=== PATIENT | female | born 1940 | race Caucasian/White ===

== ENCOUNTER → 2020-07-13 13:58 | Outpatient (BNVA) | payer MEDICARE, OTHER, SELFPAY | PROVIDERS: PCP Internal Medicine; Visit Provider Anesthesiology | DX: M47.817 Spondylosis without myelopathy or radiculopathy, lumbosacral region (principal); M51.36 Other intervertebral disc degeneration, lumbar region; M47.812 Spondylosis without myelopathy or radiculopathy, cervical region; G89.4 Chronic pain syndrome; M47.814 Spondylosis without myelopathy or radiculopathy, thoracic region; M48.10 Ankylosing hyperostosis [Forestier], site unspecified | CPT/HCPCS: 99202 ==

== ENCOUNTER → 2020-08-10 15:41 | Outpatient (BNVA) | payer MEDICARE, OTHER, SELFPAY | PROVIDERS: PCP Internal Medicine; Visit Provider Anesthesiology | DX: M47.817 Spondylosis without myelopathy or radiculopathy, lumbosacral region (principal); M51.36 Other intervertebral disc degeneration, lumbar region | CPT/HCPCS: 99212 ==

== ENCOUNTER → 2020-08-26 09:17 | Outpatient (BNVA) | payer MEDICARE, OTHER, SELFPAY | PROVIDERS: PCP Internal Medicine; Visit Provider Anesthesiology | DX: M47.817 Spondylosis without myelopathy or radiculopathy, lumbosacral region (principal); M51.36 Other intervertebral disc degeneration, lumbar region; G89.4 Chronic pain syndrome; M47.812 Spondylosis without myelopathy or radiculopathy, cervical region; M47.814 Spondylosis without myelopathy or radiculopathy, thoracic region; M48.10 Ankylosing hyperostosis [Forestier], site unspecified | CPT/HCPCS: 99212 ==

== ENCOUNTER → 2020-09-24 09:40 | Outpatient (BNVA) | payer MEDICARE, OTHER, SELFPAY | PROVIDERS: PCP Internal Medicine; Visit Provider Anesthesiology | DX: M47.817 Spondylosis without myelopathy or radiculopathy, lumbosacral region (principal); M51.36 Other intervertebral disc degeneration, lumbar region; G89.4 Chronic pain syndrome; M47.812 Spondylosis without myelopathy or radiculopathy, cervical region; M47.814 Spondylosis without myelopathy or radiculopathy, thoracic region; M48.10 Ankylosing hyperostosis [Forestier], site unspecified | CPT/HCPCS: 99212 ==

== ENCOUNTER → 2020-10-07 10:09 | Outpatient (BNVA) | payer MEDICARE, OTHER, SELFPAY | PROVIDERS: PCP Internal Medicine; Visit Provider Anesthesiology | DX: M47.817 Spondylosis without myelopathy or radiculopathy, lumbosacral region (principal); M51.36 Other intervertebral disc degeneration, lumbar region; M47.812 Spondylosis without myelopathy or radiculopathy, cervical region; M47.814 Spondylosis without myelopathy or radiculopathy, thoracic region; G89.4 Chronic pain syndrome; M48.10 Ankylosing hyperostosis [Forestier], site unspecified | CPT/HCPCS: 99212 ==

== ENCOUNTER → 2020-11-05 10:18 | Outpatient (BNVA) | payer MEDICARE, OTHER, SELFPAY | PROVIDERS: PCP Internal Medicine; Visit Provider Anesthesiology | DX: M47.817 Spondylosis without myelopathy or radiculopathy, lumbosacral region (principal); M51.36 Other intervertebral disc degeneration, lumbar region; G89.4 Chronic pain syndrome; M47.812 Spondylosis without myelopathy or radiculopathy, cervical region; M47.814 Spondylosis without myelopathy or radiculopathy, thoracic region; M48.10 Ankylosing hyperostosis [Forestier], site unspecified | CPT/HCPCS: 99212 ==

== ENCOUNTER → 2020-11-24 08:00 | Outpatient (BNVA) | payer MEDICARE, OTHER, SELFPAY | PROVIDERS: PCP Internal Medicine; Visit Provider Family Medicine Adult Medicine | DX: M47.817 Spondylosis without myelopathy or radiculopathy, lumbosacral region (principal); M51.36 Other intervertebral disc degeneration, lumbar region; M47.812 Spondylosis without myelopathy or radiculopathy, cervical region; M47.814 Spondylosis without myelopathy or radiculopathy, thoracic region | CPT/HCPCS: 99212 ==

== ENCOUNTER → 2020-12-22 08:50 | Outpatient (BNVA) | payer MEDICARE, OTHER, SELFPAY | PROVIDERS: PCP Internal Medicine; Visit Provider Family Medicine Adult Medicine | DX: M51.36 Other intervertebral disc degeneration, lumbar region (principal); M47.817 Spondylosis without myelopathy or radiculopathy, lumbosacral region; M47.812 Spondylosis without myelopathy or radiculopathy, cervical region; M47.814 Spondylosis without myelopathy or radiculopathy, thoracic region; Z79.899 Other long term (current) drug therapy | CPT/HCPCS: 99212 ==

== ENCOUNTER 2020-12-22 10:12 | Emergency (ER) | payer MEDICARE, OTHER, SELFPAY ==
[2020-12-22] VITALS (9 sets, daily range): BP systolic 179–211; BP diastolic 62–80; PULSE 55–66; RESP 17–18; TEMP 36.7; O2SAT 96–99; BMI 27.8
--- NOTE | 2020-12-22 10:28 | ED.CHESTPAIN ---
HPI - Chest Pain General Chief Complaint: Chest Pain Stated Complaint: chest pain, htn Time Seen by Provider: 12/22/20 10:28 Source: patient Mode of arrival: ambulatory Limitations: no limitations History of Present Illness HPI narrative: Saw her pain management doctor and had a BP of 235/99. Over the last few days she has been weak, tired with a headache. Patient has had this happen in the past. Patient missed some of her blood pressure medication yesterday. This morning she had all her morning BP medication. Patient takes losartanl and labetolol in the afternoon. Patient had 30 minutes of chest pain after the doctor called the ambulance to take the patient to the ED. MD complaint: chest pain Onset (ago): minute(s) Prior episodes: Yes Onset: other (with anxiety) Pain location: substernal Quality: tightness Exacerbating factors: stress Related Data Home Medications Medication Instructions Recorded Confirmed allopurinol 100 mg tablet 200 mg PO DAILY 07/13/20 12/22/20 atorvastatin 40 mg tablet 40 mg PO DAILY 07/13/20 12/22/20 furosemide 20 mg tablet 20 mg PO DAILY 07/13/20 12/22/20 labetalol 100 mg tablet mg PO 07/13/20 12/22/20 losartan 100 mg tablet 100 mg PO DAILY 07/13/20 12/22/20 meclizine 25 mg tablet 25 mg PO BID 07/13/20 12/22/20 nifedipine 30 mg tablet,extended 30 mg PO DAILY 07/13/20 12/22/20 release 24 hr topiramate 25 mg tablet 25 mg PO TID 07/13/20 12/22/20 Previous Rx's Medication Instructions Recorded buprenorphine 15 mcg/hour weekly 1 patch TRANSDERMAL Q7D 28 Days #4 12/22/20 transdermal patch ea hydrocodone 5 mg-acetaminophen 325 1 tab PO BEDTIME PRN 30 Days #20 12/22/20 mg tablet tab Allergies Allergy/AdvReac Type Severity Reaction Status Date / Time capsaicin [From DICLOPAK] Allergy Unknown RASH Verified 12/22/20 09:55 diclofenac [From DICLOPAK] Allergy Unknown RASH Verified 12/22/20 09:55 tolmetin [From Tolectin] Allergy swelling,ra Verified 12/22/20 09:55 Review of Systems Constitutional: Constitutional: Reports no additional constitutional complaints Eyes: Eyes: Reports no additional eye complaints ENT: Denies dizziness Cardiovascular: Cardiovascular: Reports no additional cardiovascular complaints Respiratory: Respiratory: Reports as per HPI Gastrointestinal: Gastrointestinal: Reports no additional gastrointestinal complaints Genitourinary: Genitourinary: Reports no additional female genitourinary complaints Musculoskeletal: Musculoskeletal: Reports no additional musculoskeletal complaints Integumentary/Breasts: Skin/Breast: Denies rash Neurologic: Reports system reviewed and no additional complaints, except as documented, Denies dizziness and Denies Sensory deficit (Neuro) Psychiatric: Psychiatric: Denies anxiety [facility] Past Medical History Medical History Cervical spondylosis Chronic pain syndrome Disc degeneration, lumbar DISH (diffuse idiopathic skeletal hyperostosis) Spondylosis of lumbosacral joint without myelopathy Thoracic spondylosis Social History Social History Alcohol intake: never Patient Tobacco Use Status: Never used Tobacco Use of substances other than those prescribed or required for medical reasons: No Advance Directives: No Advance Directives Information Provided: No Physical Exam Vital Signs: Vital Signs: Last Vital Signs Temp 98.1 F 12/22/20 10:20 Pulse 60 12/22/20 13:19 Resp 18 12/22/20 13:19 BP 196/73 H 12/22/20 13:19 Pulse Ox 99 12/22/20 13:19 Body Mass Index 27.8 Const: General: healthy appearing Nutritional Appearance: average body habitus Orientation/consciousness: oriented to person and patient oriented x3 Limitations: no limitations HENMT: Head: Yes normal to inspection Ears: external ears normal General nose exam: Normal external nose present Mouth: Normal oral and palatal mucosa present and oropharynx normal Throat: Yes posterior oropharynx normal Eyes: General: appearance normal, both eyes and all related structures Neck: Other: supple Neck: Yes normal visual inspection Chest: Chest palpation & inspection: normal inspection of the chest Resp: Auscultation: clear to auscultation bilaterally Cardio: Jugular venous distension: no JVD Rate: regular rate Rhythm: regular rhythm Heart sounds: S1 normal heart sound present and S2 normal heart sound present GI: Inspection: Yes normal to inspection Palpation (GI): Soft to palpation, nontender and No hepatosplenomegaly present Auscultation: normal bowel sounds : General: Yes no CVA tenderness Back/Spine/Pelvis: Back: no CVA tenderness Skin: General skin exam: no rashes or lesions noted Neuro: General: oriented to person and patient oriented x3 Cranial nerves: Yes CN's II-XII intact bilaterally Motor exam (neuro): 5/5 motor strength present throughout Sensory Exam: No Sensory deficit (Neuro) Extrem: General: Yes normal to inspection Psych: Appearance: grossly normal Course Reevaluation(s) Reevaluation #1: Labs look good, systolic now 190, will give patient 10mg of IV labetalol if BP comes down a little more will dc home Time: 12:48 Reevaluation #2: 179/62 will dc home Time: 14:04 MDM - Chest Pain Lab Data Result diagrams: 12/22/20 10:41 12/22/20 10:41 Labs: Lab Results 12/22/20 12/22/20 12/22/20 Range/Units 10:41 10:41 10:41 WBC 6.9 (4.8-10.8) X10*3/uL RBC 4.11 L (4.20-5.50) X10*6/uL Hgb 12.4 (12.0-16.0) g/dl Hct 37.7 (37-47) % MCV 91.7 (80-98) fL MCH 30.2 (27.0-33.0) pg MCHC 32.9 (31.0-35.0) g/dl RDW 12.4 (11.0-16.0) % Plt Count 216 (160-400) X10*3/uL MPV 10.2 (9.4-12.3) fL Immature Gran % (Auto) 0.1 (0.0-0.4) % Neut % (Auto) 60.5 (45-73) % Lymph % (Auto) 28.8 (20-40) % [place] % (Auto) 8.8 (2-11) % Eos % (Auto) 1.4 (0-4) % Baso % (Auto) 0.4 (0-2) % Lymph # (Auto) 2.0 (1.2-4.9) X10*3/uL [place] # (Auto) 0.6 (0.1-1.2) X10*3/uL Eos # (Auto) 0.1 (0.0-0.4) X10*3/uL Baso # (Auto) 0.0 (0.0-0.2) X10*3/uL Abs Immat Gran (auto) 0.01 (0.00-0.03) X10*3/uL Absolute Neuts (auto) 4.2 (2.0-8.3) X10*3/uL Absolute Nucleated RBC 0.000 (0.0-0.012) X10*3/uL Nucleated RBC % (auto) 0.0 (0.0-0.2) /100WBC Sodium 142 (135-145) mmol/L Potassium 3.8 (3.3-5.1) mmol/L Chloride 109 H (96-108) mmol/L Carbon Dioxide 21 L (22-29) mmol/L Anion Gap 16 (12-20) BUN 19 H (9-16) mg/dL Creatinine 0.91 (0.5-1.4) mg/dL Estim Creat Clear Calc 43.8 Estimated GFR 60 Random Glucose 151 H (60-115) mg/dL Calcium 9.0 (8.4-10.2) mg/dL Troponin I High Sens 7.6 (<3.5-17.0) ng/L Urine Color Urine Appearance Urine pH (5.0-8.0) Ur Specific [place] (1.005-1.025) Urine Protein (NEG-TRACE) MG/DL Urine Glucose (UA) (NEG) MG/DL Urine Ketones (NEG) MG/DL Urine Blood (NEG) Urine Nitrite (NEG) Ur Leukocyte Esterase (NEG) Urine RBC (0) /HPF Urine WBC (0-4) /HPF Ur Squamous Epith Cells /LPF Urine Bacteria /LPF 12/22/20 Range/Units 11:55 WBC (4.8-10.8) X10*3/uL RBC (4.20-5.50) X10*6/uL Hgb (12.0-16.0) g/dl Hct (37-47) % MCV (80-98) fL MCH (27.0-33.0) pg MCHC (31.0-35.0) g/dl RDW (11.0-16.0) % Plt Count (160-400) X10*3/uL MPV (9.4-12.3) fL Immature Gran % (Auto) (0.0-0.4) % Neut % (Auto) (45-73) % Lymph % (Auto) (20-40) % [place] % (Auto) (2-11) % Eos % (Auto) (0-4) % Baso % (Auto) (0-2) % Lymph # (Auto) (1.2-4.9) X10*3/uL [place] # (Auto) (0.1-1.2) X10*3/uL Eos # (Auto) (0.0-0.4) X10*3/uL Baso # (Auto) (0.0-0.2) X10*3/uL Abs Immat Gran (auto) (0.00-0.03) X10*3/uL Absolute Neuts (auto) (2.0-8.3) X10*3/uL Absolute Nucleated RBC (0.0-0.012) X10*3/uL Nucleated RBC % (auto) (0.0-0.2) /100WBC Sodium (135-145) mmol/L Potassium (3.3-5.1) mmol/L Chloride (96-108) mmol/L Carbon Dioxide (22-29) mmol/L Anion Gap (12-20) BUN (9-16) mg/dL Creatinine (0.5-1.4) mg/dL Estim Creat Clear Calc Estimated GFR Random Glucose (60-115) mg/dL Calcium (8.4-10.2) mg/dL Troponin I High Sens (<3.5-17.0) ng/L Urine Color YELLOW Urine Appearance CLEAR Urine pH 6.0 (5.0-8.0) Ur Specific [place] 1.025 (1.005-1.025) Urine Protein 2+ H (NEG-TRACE) MG/DL Urine Glucose (UA) NEG (NEG) MG/DL Urine Ketones NEG (NEG) MG/DL Urine Blood NEG (NEG) Urine Nitrite NEG (NEG) Ur Leukocyte Esterase NEG (NEG) Urine RBC 0-2 (0) /HPF Urine WBC 1-4 (0-4) /HPF Ur Squamous Epith Cells 1+ /LPF Urine Bacteria NONE /LPF Discharge Plan Discharge Clinical Impression: Hypertension Qualifiers: Hypertension type: primary hypertension Qualified Code(s): I10 - Essential (primary) hypertension Patient Disposition: Home, Self-Care Instructions: Hypertension (ED) Prescriptions: No Action atorvastatin 40 mg tablet 40 mg PO DAILY RF: 0 allopurinol 100 mg tablet 200 mg PO DAILY RF: 0 losartan 100 mg tablet 100 mg PO DAILY RF: 0 nifedipine 30 mg tablet extended release 24hr 30 mg PO DAILY RF: 0 furosemide 20 mg tablet 20 mg PO DAILY RF: 0 labetalol 100 mg tablet PO RF: 0 topiramate 25 mg tablet 25 mg PO TID RF: 0 meclizine 25 mg tablet 25 mg PO BID RF: 0 buprenorphine [Butrans] 15 mcg/hour patch weekly 1 patch transdermal Q7D 28 Days Qty: 4 RF: 1 hydrocodone-acetaminophen 5-325 mg tablet 1 tab PO BEDTIME PRN (Reason: pain) 30 Days Qty: 20 RF: 0 Referrals: Beau Perez MD [Primary Care Provider] - 2 days
--- NOTE | 2020-12-22 10:37 | ECG_ITS ---
Test Reason : CP Blood Pressure : / mmHG Vent. Rate : 062 BPM Atrial Rate : 062 BPM P-R Int : 150 ms QRS Dur : 164 ms QT Int : 474 ms P-R-T Axes : - 147 degrees QTc Int : 481 ms Normal sinus rhythm Left bundle branch block Abnormal ECG When compared with ECG of 02-MAR-2011 10:01, No significant change was found Referred By: Kendrick Negrete Electronically Signed By:WALKER COREAS MD
[2020-12-22 10:48] LABS: MANUAL DIFF FLAG NO
[2020-12-22 10:51] LABS: Basophils Percent Auto 0.4 % (0-2); Eosinophils Absolute Auto 0.1 X10*3/uL (0.0-0.4); Eosinophils Percent Auto 1.4 % (0-4); Hematocrit 37.7 % (37-47); Hemoglobin 12.4 g/dl (12.0-16.0); Imm Gran Abs Auto 0.01 X10*3/uL (0.00-0.03); Imm Gran Pct Auto 0.1 % (0.0-0.4); Lymphocytes Percent Auto 28.8 % (20-40); Mean Corpuscular HGB Conc 32.9 g/dl (31.0-35.0); Mean Corpuscular Hemoglobin 30.2 pg (27.0-33.0); Mean Corpuscular Volume 91.7 fL (80-98); Mean Platelet Volume 10.2 fL (9.4-12.3); Monocytes Absolute Auto 0.6 X10*3/uL (0.1-1.2); Monocytes Percent Auto 8.8 % (2-11); Neutrophils Absolute Auto 4.2 X10*3/uL (2.0-8.3); Neutrophils Percent Auto 60.5 % (45-73); Platelet Count 216 X10*3/uL (160-400); Red Blood Count 4.11 X10*6/uL (4.20-5.50); Red Cell Distribution Width 12.4 % (11.0-16.0); White Blood Count 6.9 X10*3/uL (4.8-10.8)
[2020-12-22] MEDS: Labetalol HCL 100 MG TABLET PO (11:07)
[2020-12-22] MEDS: Losartan Potassium 50 MG TABLET 100 MG PO (11:07)
[2020-12-22 11:09] LABS: Anion Gap 16 (12-20); Blood Urea Nitrogen 19 mg/dL (9-16); Carbon Dioxide 21 mmol/L (22-29); Chloride 109 mmol/L (96-108); Creatinine Clr Calc Pharmacy 43.8; Estimated Glomerular Filt Rate 60; Glucose Random 151 mg/dL (60-115); Potassium 3.8 mmol/L (3.3-5.1); Sodium 142 mmol/L (135-145)
[2020-12-22 11:16] LABS: Troponin-I High Sensitivity 7.6 ng/L (<3.5-17.0)
--- NOTE | 2020-12-22 11:53 | PC.NURSE ---
Patient is ambulatory to the bathroom and back without difficulty. Pt denies any chest pain or shortness of breath. Pt given a sandwich and gingerale after doctor approval.
[2020-12-22 12:03] LABS: Appearance Urine CLEAR; Color Urine YELLOW; Glucose Urine UA NEG (NEG); Leukocyte Esterase Urine NEG (NEG); Nitrite Urine NEG (NEG); Specific Gravity - Urine 1.025 (1.005-1.025); Urine Blood NEG (NEG); Urine Ketones NEG (NEG); Urine Protein 2+ MG/DL (NEG-TRACE)
[2020-12-22 12:16] LABS: RBC Urine 0-2 /HPF (0); Squamous Epithelial Cell Urine 1+ /LPF
[2020-12-22] MEDS: Labetalol HCL 100 MG/20 ML VIAL 10 MG IVPUSH (13:15)
== END 2020-12-22 14:27 | disposition home or self-care (01) ==
PROVIDERS: Emergency Provider Emergency Medicine; PCP Internal Medicine
DX: I10 Essential (primary) hypertension (principal); Z79.899 Other long term (current) drug therapy
CPT/HCPCS: 36415; 80048; 81001; 81003; 84484; 85025; 93005; 96374; 99284; 99285

== ENCOUNTER → 2021-01-26 09:24 | Outpatient (BNVA) | payer MEDICARE, OTHER, SELFPAY | PROVIDERS: PCP Internal Medicine; Visit Provider Family Medicine Adult Medicine | DX: M47.817 Spondylosis without myelopathy or radiculopathy, lumbosacral region (principal); M47.812 Spondylosis without myelopathy or radiculopathy, cervical region; M47.814 Spondylosis without myelopathy or radiculopathy, thoracic region; M51.36 Other intervertebral disc degeneration, lumbar region | CPT/HCPCS: 99212 ==

== ENCOUNTER → 2021-02-23 10:02 | Outpatient (BNVA) | payer MEDICARE, OTHER, SELFPAY | PROVIDERS: PCP Internal Medicine; Visit Provider Family Medicine Adult Medicine | DX: Z51.81 Encounter for therapeutic drug level monitoring (principal); M47.817 Spondylosis without myelopathy or radiculopathy, lumbosacral region; M47.812 Spondylosis without myelopathy or radiculopathy, cervical region; M51.36 Other intervertebral disc degeneration, lumbar region | CPT/HCPCS: 99212 ==

== ENCOUNTER → 2021-03-23 09:52 | Outpatient (BNVA) | payer MEDICARE, OTHER, SELFPAY | PROVIDERS: PCP Internal Medicine; Visit Provider Family Medicine Adult Medicine | DX: Z51.81 Encounter for therapeutic drug level monitoring (principal); M47.812 Spondylosis without myelopathy or radiculopathy, cervical region; M51.36 Other intervertebral disc degeneration, lumbar region; M47.817 Spondylosis without myelopathy or radiculopathy, lumbosacral region; M47.814 Spondylosis without myelopathy or radiculopathy, thoracic region | CPT/HCPCS: 99212 ==

== ENCOUNTER → 2021-04-20 09:56 | Outpatient (BNVA) | payer MEDICARE, OTHER, SELFPAY | PROVIDERS: PCP Internal Medicine; Visit Provider Family Medicine Adult Medicine | DX: Z51.81 Encounter for therapeutic drug level monitoring (principal); M47.817 Spondylosis without myelopathy or radiculopathy, lumbosacral region; G89.4 Chronic pain syndrome | CPT/HCPCS: 99212 ==

== ENCOUNTER → 2021-05-18 13:07 | Outpatient (BNVA) | payer MEDICARE, OTHER, SELFPAY | PROVIDERS: PCP Internal Medicine; Visit Provider Family Medicine Adult Medicine ==

== ENCOUNTER 2021-09-29 14:25 | Outpatient (REF) | payer MEDICARE, OTHER, SELFPAY ==
[2021-09-29 18:13] LABS: Hematocrit 38.6 % (37.0-47.0); Hemoglobin 12.8 g/dl (12.0-16.0); Mean Corpuscular HGB Conc 33.2 g/dl (31.0-35.0); Mean Corpuscular Hemoglobin 30.5 pg (27.0-33.0); Mean Corpuscular Volume 92.1 fL (80.0-98.0); Platelet Count 242 X10*3/uL (160-400); Red Blood Count 4.19 X10*6/uL (4.20-5.50); Red Cell Distribution Width 11.9 % (11.0-16.0); White Blood Count 7.7 X10*3/uL (4.8-10.8)
[2021-09-29 18:21] LABS: Alanine Aminotransferase < 6 U/L (0-31); Albumin Level 4.1 g/dL (3.5-5.0); Alkaline Phosphatase 72 U/L (39-117); Anion Gap 14 (12-20); Aspartate Amino Transferase 15 U/L (5-31); Bilirubin Total 0.4 mg/dL (0.0-1.0); Blood Urea Nitrogen 35 mg/dL (9-16); Calcium 9.4 mg/dL (8.4-10.2); Carbon Dioxide 27 mmol/L (22-29); Chloride 101 mmol/L (96-108); Estimated Glomerular Filt Rate 37; Glucose Random 174 mg/dL (60-115); Potassium 4.1 mmol/L (3.3-5.1); Sodium 138 mmol/L (135-145); Total Protein 6.5 g/dL (6.5-8.0)
[2021-09-30 05:41] LABS: Estimated Average Glucose 131 mg/dL; Hemoglobin A1C 150.6729 umol/L; Hemoglobin A1c % 6.2 %
== END 2021-09-29 14:26 | disposition home or self-care (01) ==
LOC: HO.MANLDS 14:25
PROVIDERS: PCP Internal Medicine; Visit Provider Internal Medicine
DX: E11.9 Type 2 diabetes mellitus without complications (principal)
CPT/HCPCS: 36415; 80053; 83036; 85027

== ENCOUNTER 2022-03-07 11:02 | Emergency (ER) | payer MEDICARE, OTHER, SELFPAY ==
[2022-03-07 11:05] VITALS: BP 209/66; PULSE 61; RESP 18; TEMP 36.3; O2SAT 99; BMI 25.9
== END 2022-03-07 16:41 | disposition left against medical advice (07) ==
PROVIDERS: Emergency Provider Emergency Medicine; PCP Internal Medicine
DX: R51.9 Headache, unspecified (principal); R11.0 Nausea; R19.7 Diarrhea, unspecified
CPT/HCPCS: 99281

== ENCOUNTER 2022-03-25 11:24 | Emergency (ER) | payer MEDICARE, OTHER, SELFPAY ==
--- NOTE | ~2022-03-25 | CT_ITS ---
CT ANGIOGRAM NECK WITH CONTRAST CT ANGIOGRAM BRAIN WITH CONTRAST CLINICAL INFORMATION: Pain and headache. COMPARISON: Head CT 03/02/2011. TECHNIQUE: Test bolus sequences followed by intravenous administration 70 mL of Omnipaque 350. Helical imaging was performed in the axial plane from the thoracic inlet to the skull vertex. Delayed postcontrast imaging of the head was also performed. The data was processed at the radiologic technologist workstation for generation of MIP sequences. Angled MIPs and volume rendered reformatted images were also generated at an offline 3D workstation under concurrent supervision. Stenoses are assessed in accordance with NASCET criteria unless otherwise indicated. This CT examination was performed using dose optimization techniques as appropriate, variously including the following: *Automated exposure control *Adjustment of mA and/or kV according to patient size (this includes techniques or standardized protocols for targeted exams where dose is matched to indication/reason for exam; i.e. extremities or head) *Use of iterative reconstruction technique FINDINGS: BRAIN: Moderate chronic microangiopathy. [There is no intracranial hemorrhage, hydrocephalus, extra-axial surface collection, midline shift, or other herniation pattern. Brownlee to white matter differentiation is diffusely maintained without evidence of an evolved acute territorial infarct. The basilar cisterns are preserved. No significant soft tissue abnormality. No acute osseous abnormality. The paranasal sinuses and the mastoid air cells are well aerated.] CERVICAL SOFT TISSUES AND LUNG APICES: There is multilevel cervical spondylosis. NECK CTA: [There is a classic 3 vessel configuration of the aortic arch. Proximal arch vessels are non-stenotic. The vertebral arteries are codominant. No significant ostial stenosis is visualized on either side. Both vertebral arteries are widely patent throughout their cervical course. Both common carotid arteries are normal in course and caliber.] Atherosclerotic calcification involving the carotid bifurcations bilaterally without significant stenosis. BRAIN CTA: Atherosclerotic calcification results in a moderate stenosis of the left vertebral artery at its dural insertion. 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 No focal flow-limiting stenosis nor discrete proximal large artery occlusion. 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 Timing of the contrast bolus allows assessment of the major dural venous sinuses, which all opacify normally] CT/CT angio head neck IMPRESSION: - No acute intracranial findings. There is moderate chronic microangiopathy. 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 - Atherosclerotic calcification results in a moderate stenosis of the left vertebral artery at its dural insertion. No additional significant arterial stenoses within the neck. - No acute arterial occlusions intracranially.
--- NOTE | 2022-03-25 11:32 | ED_ITS ---
HPI - Neck Pain/Injury General Chief Complaint: Neck Pain/Injury Stated Complaint: neck pain Time Seen by Provider: 03/25/22 11:26 Source: patient, EMS and old records reviewed Mode of arrival: EMS Limitations: no limitations History of Present Illness HPI Narrative: 82 yo female with history of chronic pain syndrome on chronic buprenorphine patch, cervical & thoracic spondylosis, diffuse idiopathic skeletal hype rostosis, HTN who presents to the ER for evaluation of severe neck pain that is worsening then she ?slept wrong? 3 days ago. She states she went to bed with a stiff neck and woke up with worsening symptoms on Monday, 03/22. She feels like all the muscles in her neck are stiff, on both sides. She also reports severe midline pain posteriorly. She is unable to move her head at all with excruciating tearing in with movement. She states she also now has a headache. She denies any trauma or injuries. She feels ?frozen. ? complaint: neck pain Onset (ago): day(s) (4) Place: home Radiation: right lateral and left lateral Severity: severe Severity scale (1-10): 10 Quality: stabbing, aching and spasming Duration: constant Relieving factors: immobilization Exacerbating factors: movement of neck Context: unknown Associated symptoms: headache Treatments prior to arrival: prescription analgesic Related Data Home Medications Medication Instructions Recorded Confirmed allopurinol 100 mg tablet 200 mg PO DAILY 07/13/20 04/20/21 atorvastatin 40 mg tablet 40 mg PO DAILY 07/13/20 04/20/21 furosemide 20 mg tablet 20 mg PO DAILY 07/13/20 04/20/21 labetalol 100 mg tablet mg PO 07/13/20 04/20/21 losartan 100 mg tablet 100 mg PO DAILY 07/13/20 04/20/21 meclizine 25 mg tablet 25 mg PO BID 07/13/20 04/20/21 nifedipine 30 mg tablet,extended 30 mg PO DAILY 07/13/20 04/20/21 release 24 hr topiramate 25 mg tablet 25 mg PO TID 07/13/20 04/20/21 Previous Rx's Medication Instructions Recorded buprenorphine 15 mcg/hour weekly 1 patch transdermal Q7D 28 days #4 03/23/21 transdermal patch (Butrans) ea duloxetine 30 mg capsule,delayed 30 mg PO BID 30 days #60 caps 04/20/21 release hydrocodone 5 mg-acetaminophen 325 1 tab PO BEDTIME PRN pain 30 days 05/19/21 mg tablet #30 tabs cyclobenzaprine 5 mg tablet 5 mg PO TID PRN muscle spasm #10 03/25/22 tabs lidocaine 5 % topical patch 1 patch topical DAILY #15 ea 03/25/22 Allergies Allergy/AdvReac Type Severity Reaction Status Date / Time capsaicin [From DICLOPAK] Allergy Unknown RASH Verified 04/20/21 10:28 diclofenac [From DICLOPAK] Allergy Unknown RASH Verified 04/20/21 10:28 tolmetin [From Tolectin] Allergy swelling,ra Verified 04/20/21 10:28 Review of Systems Review of Systems: Constitutional: No Fever, No Chills ENT/Mouth: No sore throat, No Rhinorrhea, No Swallowing Difficulty Eyes: No Eye Pain, No Swelling, No Redness, No vision changes Cardiovascular: No Chest Pain, No SOB, No Orthopnea, No Edema Respiratory: No Cough, No Sputum, No Wheezing, No dyspnea Gastrointestinal: No Nausea, No Vomiting, No Diarrhea, No abdominal Pain Genitourinary: No Dysuria, No Urinary Frequency, No Hematuria Musculoskeletal: +joint pain, +Myalgias Skin: No Skin Lesions, No rash Neuro: No Weakness, No Numbness, No Dizziness, + Headache Psych: No Anxiety/Panic, No Depression Heme/Lymph: No Bruising, No Lymphadenopathy PMFSH Past Medical History Medical History Cervical spondylosis Chronic pain syndrome Disc degeneration, lumbar DISH (diffuse idiopathic skeletal hyperostosis) Spondylosis of lumbosacral joint without myelopathy Thoracic spondylosis Social History Social History Alcohol intake: current Alcohol intake frequency: holidays/special occasions only Patient Tobacco Use Status: Never used Tobacco Use of substances other than those prescribed or required for medical reasons: No Advance Directives: Yes Advance Directives Information Provided: Yes Advance Directives on File: No Physical Exam Vital Signs: Vital Signs: Last Vital Signs Temp 98.4 F 03/25/22 16:00 Pulse 72 03/25/22 16:00 Resp 16 03/25/22 16:00 BP 158/60 H 03/25/22 16:00 Pulse Ox 5 L 03/25/22 16:00 O2 Del Method 03/25/22 16:00 BMI result Body Mass Index 25.9 Appearance: Alert. Oriented X3. Appears to be uncomfortable Eyes: Pupils equal, round and reactive to light. ENT: Pharynx normal. Neck: Fullness of the supraclavicular area on the right side with soft tissue tenderness. There is diffuse soft tissue tenderness of the bilateral neck, upper trapezius muscles with palpable spasm. There is also diffuse tenderness of the midline cervical spine throughout. Significant limited range of the motion of the head and neck. CVS: Normal heart rate and rhythm. Pulses normal. Respiratory: No respiratory distress. Breath sounds normal. Abdomen: Soft and nontender. +BS x4 Skin: Skin warm and dry. Normal skin color. Normal skin turgor. No rashes. Extremities: No lower extremity edema. Neuro: Oriented X 3. No motor deficit. No sensory deficit. Course Course Course Narrative: 82-year-old female presents to the ER for evaluation nontraumatic neck pain for the last 4 days, located throughout the entire neck including the soft tissues of the left side, right side and the cervical spine. She also reports a severe headache. Will need to get CTA of the head and neck to rule out dissection and other etiologies. She has some supraclavicular fullness on the right side with no visible JVD, no skin changes. She is neurovascularly intact in her right arm. No other neuro symptoms. Will start out with topical [place] patches and a low dose of a muscle relaxer. Dispo pending results and improvement Reevaluation(s) Reevaluation #1: CTA head/neck: - No acute intracranial findings. There is moderate chronic microangiopathy. ? 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 ? - Atherosclerotic calcification results in a moderate stenosis of the left vertebral artery at its dural insertion. No additional significant arterial stenoses within the neck. ? - No acute arterial occlusions intracranially. Feeling much better after muscle relaxe r and topical Lidoderm patches. Her pain is most likely due to muscle spasm and possible torticollis. Her range of motion is slightly increased. Palpable spasm still appreciated. Will discharge home on oral muscle relaxer. Her son will come pick her up. Comfortable [facility] DC home. MDM - Neck Pain/Injury Lab Data Result diagrams: 03/25/22 12:49 03/25/22 12:49 Labs: Lab Results 03/25/22 03/25/22 03/25/22 Range/Units 12:49 12:49 12:49 WBC 8.9 (4.8-10.8) X10*3/uL RBC 4.20 (4.20-5.50) X10*6/uL Hgb 12.8 (12.0-16.0) g/dl Hct 38.2 (37.0-47.0) % MCV 91.0 (80.0-98.0) fL MCH 30.5 (27.0-33.0) pg MCHC 33.5 (31.0-35.0) g/dl RDW 12.1 (11.0-16.0) % Plt Count 205 (160-400) X10*3/uL MPV 10.7 (9.4-12.3) fL Immature Gran % (Auto) 0.2 (0.0-0.4) % Neut % (Auto) 68.1 (45-73) % Lymph % (Auto) 19.3 L (20-40) % [place] % (Auto) 10.4 (2-11) % Eos % (Auto) 1.6 (0-4) % Baso % (Auto) 0.4 (0-2) % Lymph # (Auto) 1.7 (1.2-4.9) X10*3/uL [place] # (Auto) 0.9 (0.1-1.2) X10*3/uL Eos # (Auto) 0.1 (0.0-0.4) X10*3/uL Baso # (Auto) 0.0 (0.0-0.2) X10*3/uL Abs Immat Gran (auto) 0.02 (0.00-0.03) X10*3/uL Absolute Neuts (auto) 6.1 (2.0-8.3) x10*3/uL Absolute Nucleated RBC 0.000 (0.0-0.012) X10*3/uL Nucleated RBC % (auto) 0.0 (0.0-0.2) /100WBC Smear Tech's Comments VERIFIED PT 10.9 (10.0-13.1) SEC INR 1.0 (0.9-1.1) APTT 25.0 L (26.0-36.4) SEC Sodium 140 (135-145) mmol/L Potassium 4.4 (3.3-5.1) mmol/L Chloride 107 (96-108) mmol/L Carbon Dioxide 21 L (22-29) mmol/L Anion Gap 16 (12-20) BUN 22 H (9-16) mg/dL Creatinine 1.07 (0.5-1.4) mg/dL Estim Creat Clear Calc 36.3 Estimated GFR 49 Random Glucose 141 H (60-115) mg/dL Calcium 9.0 (8.4-10.2) mg/dL Magnesium 2.1 (1.6-2.6) mg/dL Total Bilirubin 0.7 (0.0-1.0) mg/dL Direct Bilirubin 0.2 (0.0-0.5) mg/dL AST 13 (5-31) U/L ALT < 6 (0-31) U/L Alkaline Phosphatase 75 (39-117) U/L Total Protein 6.3 L (6.5-8.0) g/dL Albumin 3.9 (3.5-5.0) g/dL COVID-19 ([facility]) (Negative) COVID-19 Clin Com 03/25/22 Range/Units 12:49 WBC (4.8-10.8) X10*3/uL RBC (4.20-5.50) X10*6/uL Hgb (12.0-16.0) g/dl Hct (37.0-47.0) % MCV (80.0-98.0) fL MCH (27.0-33.0) pg MCHC (31.0-35.0) g/dl RDW (11.0-16.0) % Plt Count (160-400) X10*3/uL MPV (9.4-12.3) fL Immature Gran % (Auto) (0.0-0.4) % Neut % (Auto) (45-73) % Lymph % (Auto) (20-40) % [place] % (Auto) (2-11) % Eos % (Auto) (0-4) % Baso % (Auto) (0-2) % Lymph # (Auto) (1.2-4.9) X10*3/uL [place] # (Auto) (0.1-1.2) X10*3/uL Eos # (Auto) (0.0-0.4) X10*3/uL Baso # (Auto) (0.0-0.2) X10*3/uL Abs Immat Gran (auto) (0.00-0.03) X10*3/uL Absolute Neuts (auto) (2.0-8.3) x10*3/uL Absolute Nucleated RBC (0.0-0.012) X10*3/uL Nucleated RBC % (auto) (0.0-0.2) /100WBC Smear Tech's Comments PT (10.0-13.1) SEC INR (0.9-1.1) APTT (26.0-36.4) SEC Sodium (135-145) mmol/L Potassium (3.3-5.1) mmol/L Chloride (96-108) mmol/L Carbon Dioxide (22-29) mmol/L Anion Gap (12-20) BUN (9-16) mg/dL Creatinine (0.5-1.4) mg/dL Estim Creat Clear Calc Estimated GFR Random Glucose (60-115) mg/dL Calcium (8.4-10.2) mg/dL Magnesium (1.6-2.6) mg/dL Total Bilirubin (0.0-1.0) mg/dL Direct Bilirubin (0.0-0.5) mg/dL AST (5-31) U/L ALT (0-31) U/L Alkaline Phosphatase (39-117) U/L Total Protein (6.5-8.0) g/dL Albumin (3.5-5.0) g/dL COVID-19 ([facility]) Negative (Negative) COVID-19 Clin Com See Note Critical Care Time Critical Care Time Critical Care Time: No Discharge Plan Discharge Clinical Impression: Acute torticollis Patient Disposition: Home, Self-Care Instructions: Spasmodic Torticollis (ED), Neck Pain (ED) Additional Instructions: Your CT angio of your head/neck: No acute intracranial findings. There is moderate chronic microangiopathy. ? 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 ? - Atherosclerotic calcification results in a moderate stenosis of the left vertebral artery at its dural insertion. No additional significant arterial stenoses within the neck. ? - No acute arterial occlusions intracranially. Your pain is most likely due to muscle spasm. Take the prescribed muscle relaxer as directed. Use gentle massage, heat and stretching to the area. Follow up with your Primary Care Doctor this week. If your pain worsens, if you develop new numbness, tingling, weakness, loss of function or incontinence call 911 or come back to the ER right away for evaluation. Prescriptions: New cyclobenzaprine 5 mg tablet 5 mg PO TID PRN (Reason: muscle spasm) Qty: 10 0RF lidocaine 5 % adhesive patch,medicated 1 patch topical DAILY Qty: 15 0RF Rx Instructions: leave on most painful area for up to 12 hrs No Action hydrocodone-acetaminophen 5-325 mg tablet 1 tab PO BEDTIME PRN (Reason: pain) 30 Days Qty: 30 0RF atorvastatin 40 mg tablet 40 mg PO DAILY allopurinol 100 mg tablet 200 mg PO DAILY losartan 100 mg tablet 100 mg PO DAILY nifedipine 30 mg tablet extended release 24hr 30 mg PO DAILY furosemide 20 mg tablet 20 mg PO DAILY labetalol 100 mg tablet PO topiramate 25 mg tablet 25 mg PO TID meclizine 25 mg tablet 25 mg PO BID buprenorphine [Butrans] 15 mcg/hour patch weekly 1 patch transdermal Q7D 28 Days Qty: 4 1RF Rx Instructions: Pain control duloxetine 30 mg capsule,delayed release(DR/EC) 30 mg PO BID 30 Days Qty: 60 0RF Rx Instructions: SHOULD TAKE 1 CAP/DAY X 7 DAYS THEN 2 CAPS/DAY Referrals: Beau Perez MD [Primary Care Provider] -
[2022-03-25 11:35] VITALS: BP 196/74; PULSE 64; RESP 12; TEMP 36.9; O2SAT 99
[2022-03-25 11:52] VITALS: BP 179/61; BP 185/78; PULSE 60; PULSE 74; RESP 16; O2SAT 100; O2SAT 97; BMI 25.9
[2022-03-25 12:34] VITALS: BP 182/60; PULSE 59; RESP 12; O2SAT 96
[2022-03-25 13:04] LABS: Basophils Percent Auto 0.4 % (0-2); Eosinophils Absolute Auto 0.1 X10*3/uL (0.0-0.4); Eosinophils Percent Auto 1.6 % (0-4); Hematocrit 38.2 % (37.0-47.0); Hemoglobin 12.8 g/dl (12.0-16.0); Imm Gran Abs Auto 0.02 X10*3/uL (0.00-0.03); Imm Gran Pct Auto 0.2 % (0.0-0.4); Lymphocytes Absolute Auto 1.7 X10*3/uL (1.2-4.9); Lymphocytes Percent Auto 19.3 % (20-40); MANUAL DIFF FLAG SCAN; Mean Corpuscular HGB Conc 33.5 g/dl (31.0-35.0); Mean Corpuscular Hemoglobin 30.5 pg (27.0-33.0); Mean Platelet Volume 10.7 fL (9.4-12.3); Monocytes Absolute Auto 0.9 X10*3/uL (0.1-1.2); Monocytes Percent Auto 10.4 % (2-11); Neutrophils Absolute Auto 6.1 x10*3/uL (2.0-8.3); Neutrophils Percent Auto 68.1 % (45-73); PLT CLUMP 1; Red Cell Distribution Width 12.1 % (11.0-16.0); SCAN SMEAR FLAG 1
[2022-03-25 13:06] LABS: Platelet Count 205 X10*3/uL (160-400); Prothrombin Time 10.9 SEC (10.0-13.1); White Blood Count 8.9 X10*3/uL (4.8-10.8)
[2022-03-25] MEDS: Acetaminophen 325 MG TABLET 975 MG PO (13:09)
[2022-03-25] MEDS: Lidocaine 4 % Patch ADH..PATCH 2 PATCH TRANSDERMA (13:10)
[2022-03-25] MEDS: Cyclobenzaprine HCl 5 MG TABLET PO (13:10)
[2022-03-25 13:19] LABS: COVID-19 Test Negative (Negative)
[2022-03-25 13:22] LABS: Alanine Aminotransferase < 6 U/L (0-31); Albumin Level 3.9 g/dL (3.5-5.0); Alkaline Phosphatase 75 U/L (39-117); Anion Gap 16 (12-20); Aspartate Amino Transferase 13 U/L (5-31); Bilirubin Direct 0.2 mg/dL (0.0-0.5); Bilirubin Total 0.7 mg/dL (0.0-1.0); Blood Urea Nitrogen 22 mg/dL (9-16); Carbon Dioxide 21 mmol/L (22-29); Chloride 107 mmol/L (96-108); Creatinine Clr Calc Pharmacy 36.3; Estimated Glomerular Filt Rate 49; Glucose Random 141 mg/dL (60-115); Magnesium 2.1 mg/dL (1.6-2.6); Potassium 4.4 mmol/L (3.3-5.1); Sodium 140 mmol/L (135-145); Total Protein 6.3 g/dL (6.5-8.0)
[2022-03-25 13:29] LABS: SLIDE REVIEW VERIFIED
[2022-03-25] MEDS: iohexoL 350 MG/ML 75 ML INFUS..BTL 70 ML IV (13:57)
[2022-03-25 14:20] VITALS: BP 168/55; PULSE 55; RESP 18; TEMP 36.7
[2022-03-25 16:00] VITALS: BP 158/60; PULSE 72; RESP 16; TEMP 36.9; O2SAT 5
[2022-03-25] MEDS: Ketorolac Tromethamine 15 MG/ML VIAL IVPUSH (16:03)
== END 2022-03-25 16:14 | disposition home or self-care (01) ==
PROVIDERS: Physician Assistant; Emergency Provider Emergency Medicine; PCP Internal Medicine
DX: M43.6 Torticollis (principal); M54.2 Cervicalgia; Z20.822 Contact with and (suspected) exposure to COVID-19
CPT/HCPCS: 70496; 70498; 80048; 80076; 83735; 85025; 85610; 85730; 87635; 96374; 99284; 99285; J1885; Q9967

== ENCOUNTER 2023-05-14 11:34 | Emergency (ER) | payer MEDICARE, OTHER, SELFPAY ==
--- NOTE | ~2023-05-14 | CT_ITS ---
EXAMINATION: CT CERVICAL SPINE WITHOUT CONTRAST CLINICAL INFORMATION: Fall. Neck pain. COMPARISON: None available. TECHNIQUE: Axial images through the cervical spine without IV contrast. Sagittal and coronal reconstructions on the technologist workstation. This CT examination was performed using dose optimization techniques as appropriate, variously including the following: *Automated exposure control *Adjustment of mA and/or kV according to patient size (this includes techniques or standardized protocols for targeted exams where dose is matched to indication/reason for exam; i.e. extremities or head) *Use of iterative reconstruction technique DLP: 303 mGy-cm FINDINGS: Bone alignment is normal. No fracture or dislocation. There is multilevel degenerative spondylosis and degenerative disc disease. There is left-sided facet arthritis. There are degenerative changes at the C1 dens articulation. Prevertebral soft tissues are normal. There is bilateral carotid calcification. Visualized lung apices are clear. There is a small left thyroid nodule. No imaging follow-up recommended. CT/CT cervical spine wo IV con IMPRESSION: Degenerative changes. No fracture or dislocation seen. Fleischner guidelines were followed.
--- NOTE | ~2023-05-14 | CT_ITS ---
EXAMINATION: CT HEAD WITHOUT CONTRAST CLINICAL INFORMATION: Pain. Fall. COMPARISON: Previous head CT from 2010 and CTA from 2021 TECHNIQUE: Contiguous axial imaging was performed from the skull base to vertex without intravenous administration of contrast. This CT examination was performed using dose optimization techniques as appropriate, variously including the following: *Automated exposure control *Adjustment of mA and/or kV according to patient size (this includes techniques or standardized protocols for targeted exams where dose is matched to indication/reason for exam; i.e. extremities or head) *Use of iterative reconstruction technique DLP: 742 mGy-cm FINDINGS: There is no evidence of an extra-axial collection. There is no evidence of intra-axial or extra-axial hemorrhage. The ventricles and extra-axial CSF spaces are slightly prominent. There is mild nonspecific periventricular white matter disease. No mass, mass effect or infarct. No skull fracture. Right maxillary sinus disease. CT/CT head/brain wo IV con IMPRESSION: No acute findings. Mild nonspecific periventricular white matter disease and slight prominence of the ventricles and extra-axial CSF spaces. Right maxillary sinus disease.
--- NOTE | ~2023-05-14 | XR_ITS ---
EXAMINATION: XR ELBOW, RIGHT CLINICAL INFORMATION: Fall. COMPARISON: None available. TECHNIQUE: AP, lateral, and oblique views of the right elbow. FINDINGS: There is positive anterior fat pad sign suspicious for joint effusion. However there is no visible acute fracture seen. No loose bodies or bony erosive changes seen. There is olecranon process enthesophyte. Soft tissues are normal. XR/XR elbow RT 2V IMPRESSION: Positive anterior fat pad sign but no visible or acute fracture. Recommend follow-up x-ray in 5-7 days. There is a small olecranon process enthesophyte.
--- NOTE | ~2023-05-14 | CT_ITS ---
EXAMINATION: CT CHEST, ABDOMEN AND PELVIS WITHOUT CONTRAST CLINICAL INFORMATION: Fall. Pain. Fall. Pain. COMPARISON: Chest x-ray dated 03/02/2011. TECHNIQUE: Multidetector volumetric imaging was performed from the base of the neck through the pubic symphysis. Sagittal and coronal reformatted images were obtained on the technologist workstation. This CT examination was performed using dose optimization techniques as appropriate, variously including the following: *Automated exposure control *Adjustment of mA and/or kV according to patient size (this includes techniques or standardized protocols for targeted exams where dose is matched to indication/reason for exam; i.e. extremities or head) *Use of iterative reconstruction technique DLP: 787.45 mGy-cm. FINDINGS: CT SCAN OF THE CHEST: LUNGS: Lungs bilaterally symmetrically expanded. There is a tiny calcified granuloma in the right upper lobe (series 21, image 193). No suspicious pulmonary nodule or mass is seen. No effusion or pneumothorax. Central airways patent. LYMPHOVASCULAR STRUCTURES: Ascending aorta is borderline normal in size, measuring 3.9 cm in maximal AP diameter at the level of the right main pulmonary artery. Mild atherosclerotic calcifications of the aorta and great vessels noted. Moderate atherosclerotic calcifications of the left main, left anterior descending, and right coronary arteries noted. Heart size normal. No pericardial effusion. No mediastinal, hilar or axillary adenopathy or free fluid collection. THYROID GLAND: Unremarkable to the extent included. BONES: Dorsal kyphosis with diffuse fusion of the anterior longitudinal ligament and upper and mid thoracic anterior vertebral body margins noted, consistent with ankylosing spondylitis. Diffuse osteopenia. No suspicious focal findings. CT SCAN OF THE ABDOMEN AND PELVIS: LIVER, GALLBLADDER, AND BILIARY TREE: The liver is normal in size, shape, and attenuation. There is a peripherally rim calcified 5.7 x 6.5 cm cyst in the left lobe of the liver. Liver otherwise unremarkable on noncontrast imaging, though the evaluation in region of the kait hepatis is limited by the beam hardening artifact from previous cholecystectomy clips. Mild extrahepatic ductal dilatation is seen with the common bile duct measuring up to 1 cm in diameter without obstructing stone or mass seen. Findings are likely due to sequelae of the previous cholecystectomy and patient's age. PANCREAS: Diffuse pancreatic parenchymal atrophy and fatty infiltration noted. SPLEEN, ADRENAL GLANDS: Unremarkable on noncontrast imaging. KIDNEYS AND URETERS: The kidneys are normal in size, shape, and attenuation. No hydronephrosis, hydroureter, or calculi seen. No perinephric stranding. BLADDER: Unremarkable. PELVIC VISCERA: The patient is status post hysterectomy and presumably oophorectomy. No suspicious adnexal mass. GASTROINTESTINAL TRACT: There is fecal impaction seen in the rectum. The small and large bowel are otherwise unremarkable. The appendix is not seen. ABDOMINAL WALL: No significant hernia is appreciated. LYMPH NODES, VASCULAR: Abdominal aorta normal in caliber with dense atherosclerotic calcification seen extending into the branch vessels, including the celiac axis, SMA, both renal arteries, ALAN and the iliofemoral vessels. No periaortic collections. No abdominal or pelvic adenopathy or free fluid collection. OSSEOUS STRUCTURES: Diffuse osteopenia. Moderate degenerative disc disease at L3-L4 and mild facet arthropathy throughout the lumbar spine. CT/CT abdomen pelvis wo IV con IMPRESSION: CT scan of the chest: * No evidence of acute traumatic injury to the chest. * Moderate atherosclerotic vascular calcifications, including coronary arteries. CT scan of the abdomen and pelvis: * No evidence of acute traumatic injury to the abdomen or pelvis. * Large peripherally rim calcified cyst in the left lobe of the liver. Finding may represent a calcified epithelial cyst, dilated cyst, or may represent a sequelae of previous parenchymal hematoma. Clinical correlation requested. * Diffuse pancreatic parenchymal atrophy and fatty infiltration. * Fecal impaction in the rectum. * Extensive atherosclerotic vascular calcifications.
[2023-05-14 11:54] VITALS: BP 170/65; BP 175/68; PULSE 66; PULSE 72; RESP 16; TEMP 36.6; O2SAT 99; BMI 26.1
--- NOTE | 2023-05-14 12:59 | ECG_ITS ---
Test Reason : CP Blood Pressure : / mmHG Vent. Rate : 074 BPM Atrial Rate : 074 BPM P-R Int : 134 ms QRS Dur : 156 ms QT Int : 440 ms P-R-T Axes : -10 -17 087 degrees QTc Int : 488 ms Normal sinus rhythm Left bundle branch block Abnormal ECG When compared with ECG of 22-DEC-2020 10:25, No significant change was found Referred By: Breann Jain Electronically Signed By:Say Barahona
--- NOTE | 2023-05-14 13:04 | ED.GENADULT ---
HPI - General Adult General Chief complaint: Fall Stated complaint: fall Time Seen by Provider: 05/14/23 12:05 History of Present Illness HPI narrative: Patient is an 83-year-old female status post fall. Patient was trying to get out of bed. Subsequently rolled down was on the ground. Life Alert did go off. Patient was on the ground for approximately 4-5 hours. Finally sent in for further evaluation. Complaining of pain to the neck the lower back complaining pain to the right elbow able to move all arms and legs. Patient not on any blood thinners. Not on Coumadin Xarelto Eliquis. Positive history of chronic pain positive history of hypercholesterolemia. Positive history of hypertension is any focal weakness patient did not take any of her medication today. Denies any loss of consciousness. Related Data Home Medications Medication Instructions Recorded Confirmed allopurinol 100 mg tablet 200 mg PO DAILY 07/13/20 04/20/21 atorvastatin 40 mg tablet 40 mg PO DAILY 07/13/20 04/20/21 furosemide 20 mg tablet 20 mg PO DAILY 07/13/20 04/20/21 labetalol 100 mg tablet mg PO 07/13/20 04/20/21 losartan 100 mg tablet 100 mg PO DAILY 07/13/20 04/20/21 meclizine 25 mg tablet 25 mg PO BID 07/13/20 04/20/21 nifedipine 30 mg tablet,extended 30 mg PO DAILY 07/13/20 04/20/21 release 24 hr topiramate 25 mg tablet 25 mg PO TID 07/13/20 04/20/21 Previous Rx's Medication Instructions Recorded buprenorphine 15 mcg/hour weekly 1 patch transdermal Q7D 28 days #4 03/23/21 transdermal patch (Butrans) ea duloxetine 30 mg capsule,delayed 30 mg PO BID 30 days #60 caps 04/20/21 release hydrocodone 5 mg-acetaminophen 325 1 tab PO BEDTIME PRN pain 30 days 05/19/21 mg tablet #30 tabs cyclobenzaprine 5 mg tablet 5 mg PO TID PRN muscle spasm #10 03/25/22 tabs lidocaine 5 % topical patch 1 patch topical DAILY #15 ea 03/25/22 cefuroxime axetil 500 mg tablet 500 mg PO BID #13 tabs 05/16/23 glucagon HCl 1 mg solution for 1 mg subcut Q20M PRN hypoglycemia 05/16/23 injection (Glucagon (HCl) #1 ea Emergency Kit) Allergies Allergy/AdvReac Type Severity Reaction Status Date / Time capsaicin [From DICLOPAK] Allergy Unknown RASH Verified 05/16/23 10:58 diclofenac [From DICLOPAK] Allergy Unknown RASH Verified 05/16/23 10:58 tolmetin [From Tolectin] Allergy swelling,ra Verified 05/16/23 10:58 sh Review of Systems Review of Systems: Positive fall complaining of neck pain PMFSH Past Medical History Medical History DISH (diffuse idiopathic skeletal hyperostosis) Thoracic spondylosis Cervical spondylosis Chronic pain syndrome Disc degeneration, lumbar Spondylosis of lumbosacral joint without myelopathy Social History Social History Alcohol intake: current Alcohol intake frequency: does not drink Patient Tobacco Use Status: Never used Tobacco Advance Directives Date on File: 05/14/23 Physical Exam ED Vital Signs: Vital Signs - 24 hr 05/14/23 11:54 05/14/23 14:00 05/14/23 14:30 Temperature 97.9 F 98.4 F 98.2 F Pulse Rate 66 66 69 Respiratory Rate 16 12 12 Blood Pressure 170/65 H 170/70 H 177/66 H Pulse Oximetry 99 97 Oxygen Delivery Method Room Air Room Air BMI result Body Mass Index 26.1 Appearance: Alert. Oriented X3. No acute distress. Eyes: Pupils equal, round and reactive to light. ENT: Pharynx normal. Neck: Normal inspection. Neck supple. No lymph nodes noted. No crepitus CVS: Normal heart rate and rhythm. Pulses normal. Normal S1 and S2 Respiratory: No respiratory distress. Breath sounds normal. No Wheezing. No rales Abdomen: Soft and nontender. No rigidity. No distention. good BS x4 Skin: Skin warm and dry. Normal skin color. Normal skin turgor. Extremities: No lower extremity edema. Neurovascular intact to all extremities. Positive skin tear to the right elbow. Neuro: Oriented X 3. No motor deficit. No sensory deficit. Moving all extermities. No slurred speech Medications Administered Discontinued Medications Generic Name Dose Route Start Last Admin Trade Name Freq PRN Reason Stop Dose Admin Hydromorphone HCl 0.5 mg 05/14/23 13:37 05/14/23 13:41 Hydromorphone Hcl 0.5 Mg/0.5 Ml Syringe IVPUSH 05/14/23 13:38 0.5 mg ONCE ONE Administration Protocol Hydromorphone HCl 0.5 mg 05/14/23 16:15 05/14/23 16:32 Hydromorphone Hcl 0.5 Mg/0.5 Ml Syringe IVPUSH 05/14/23 16:16 0.5 mg ONCE ONE Administration Protocol Sodium Chloride 500 mls @ 999 mls/hr 05/14/23 13:00 05/14/23 14:37 Ns IV 05/14/23 13:30 Infused .Q31M [facility] Infusion Medical Decision Making Medical Decision Making [facility] Narrative: Status post fall. She was on the ground for approximately 2 hours. Normally uses a walker to get to the bathroom but unfortunately fell trying to get out of bed. Patient has a history of diabetes, hypertension. Did not take her medication. Complaining of pain to her neck pain to her back had a skin tear to the right elbow patient denies any loss of consciousness. CT scan of the head and C-spine by my interpretation grossly negative. I reviewed radiology's reading. CT scan of the chest abdomen pelvis reviewed radiology's reading there is no evidence for acute traumatic injury. Patient is able to move her hips well. There is no acute fracture of the hip noted on the CT scan. There is a posterior fat pad sign noted on the x-ray of the elbow there is no overt evidence of fracture noted by Radiology. Patient has good range of motion. Currently still pending urine. Patient's hemoglobin is 14.7 does no evidence of anemia. Patient's BUN and creatinine is 26 and 0.96 consistent with some mild dehydration. Patient's LFTs are normal. CPK is 18. There is no evidence for rhabdo. She is currently in stable condition. If her urine is negative patient to be discharged home close follow-up on an outpatient basis Differential Diagnosis Differential Diagnoses: The differential diagnosis associated with the presentation includes Head injury, neck injury, Lab Data [facility] Lab Attestation statement: I reviewed the patient's lab results. 05/14/23 13:31 05/14/23 13:31 Labs: Lab Results 05/14/23 05/14/23 Range/Units 13:31 17:08 WBC 13.3 H (4.8-10.8) X10*3/uL RBC 4.78 (4.20-5.50) X10*6/uL Hgb 14.7 (12.0-16.0) g/dl Hct 42.8 (37.0-47.0) % MCV 89.5 (80.0-98.0) fL MCH 30.8 (27.0-33.0) pg MCHC 34.3 (31.0-35.0) g/dl RDW 12.2 (11.0-16.0) % Plt Count 331 D (160-400) X10*3/uL MPV 10.0 (9.4-12.3) fL Immature Gran % (Auto) 0.3 (0.0-0.4) % Neut % (Auto) 80.5 H (45-73) % Lymph % (Auto) 12.1 L (20-40) % [place] % (Auto) 6.6 (2-11) % Eos % (Auto) 0.2 (0-4) % Baso % (Auto) 0.3 (0-2) % Lymph # (Auto) 1.6 (1.2-4.9) X10*3/uL [place] # (Auto) 0.9 (0.1-1.2) X10*3/uL Eos # (Auto) 0.0 (0.0-0.4) X10*3/uL Baso # (Auto) 0.0 (0.0-0.2) X10*3/uL Abs Immat Gran (auto) 0.04 H (0.00-0.03) X10*3/uL Absolute Neuts (auto) 10.7 H (2.0-8.3) x10*3/uL Absolute Nucleated RBC 0.000 (0.0-0.012) X10*3/uL Nucleated RBC % (auto) 0.0 (0.0-0.2) /100WBC Sodium 145 (135-145) mmol/L Potassium 3.9 (3.3-5.1) mmol/L Chloride 111 H (96-108) mmol/L Carbon Dioxide 23 (22-29) mmol/L Anion Gap 15 (12-20) BUN 26 H (9-16) mg/dL Creatinine 0.96 (0.5-1.4) mg/dL Estim Creat Clear Calc 38.3 Estimated GFR 56 Random Glucose 65 (60-115) mg/dL Calcium 10.1 D (8.4-10.2) mg/dL Total Bilirubin 0.5 (0.0-1.0) mg/dL Direct Bilirubin 0.2 (0.0-0.5) mg/dL AST 19 (5-31) U/L ALT 5 (0-31) U/L Alkaline Phosphatase 74 (39-117) U/L Total Creatine Kinase 18 L (26-140) U/L Troponin I High Sens 8.6 (<3.5-17.0) ng/L Total Protein 7.3 (6.5-8.0) g/dL Albumin 4.0 (3.5-5.0) g/dL Urine Color Yellow Urine Appearance Clear Urine pH 7.0 (5.0-9.0) Ur Specific [place] 1.015 (1.005-1.025) Urine Protein 300 (3+) H (Neg-Trace) mg/dL Urine Glucose (UA) Negative (Negative) mg/dL Urine Ketones Trace (Negative) mg/dL Urine Blood Negative (Negative) Urine Nitrite Negative (Negative) Ur Leukocyte Esterase Negative (Negative) Urine RBC 0-2 (0-2) /HPF Urine WBC 0-5 (0-5) /HPF Ur Squamous Epith Cells 0-2 (0-2) /HPF Urine Bacteria None Seen (None Seen) Hyaline Casts 0-2 (0-2) /LPF Independent Interpretation I performed an independent interpretation of an: EKG (EKG showed a sinus pattern heart rate is 70 there is a left bundle branch block noted. This is old it did not meet Sgarbossa criteria) and CT Scan (CT scan of the head was grossly negative for any acute evidence of bleeding) Radiology Impression Discussion of test interpretation with radiology: I have reviewed the radiologist's reading. Independent Historian Clinical information obtained from an independent historian. History obtained from or confirmed by: Other (Family) Discharge Plan Discharge Clinical Impression: Fall, Contusion, Head injury Patient Disposition: Home, Self-Care Instructions: Head Injury (ED), Fall Prevention (ED) Additional Instructions: return for confusion, vomiting, worsening pain, weakness, numbness or any other concerns. repeat xray of elbow in 5 days if no improvement. incidental finding of cyst in liver CT scan of the chest: * No evidence of acute traumatic injury to the chest. * Moderate atherosclerotic vascular calcifications, including coronary arteries. CT scan of the abdomen and pelvis: * No evidence of acute traumatic injury to the abdomen or pelvis. * Large peripherally rim calcified cyst in the left lobe of the liver. Finding may represent a calcified epithelial cyst, dilated cyst, or may represent a sequelae of previous parenchymal hematoma. Clinical correlation requested. * Diffuse pancreatic parenchymal atrophy and fatty infiltration. * Fecal impaction in the rectum. * Extensive atherosclerotic vascular calcifications. Prescriptions: No Action hydrocodone-acetaminophen 5-325 mg tablet 1 tab PO BEDTIME PRN (Reason: pain) 30 Days Qty: 30 0RF cyclobenzaprine 5 mg tablet 5 mg PO TID PRN (Reason: muscle spasm) Qty: 10 0RF lidocaine 5 % adhesive patch,medicated 1 patch topical DAILY Qty: 15 0RF Rx Instructions: leave on most painful area for up to 12 hrs cefuroxime axetil 500 mg tablet 500 mg PO BID Qty: 13 0RF glucagon HCl [Glucagon (HCl) Emergency Kit] 1 mg recon soln 1 mg subcut Q20M PRN (Reason: hypoglycemia) Qty: 1 0RF Rx Instructions: until target blood sugar attained. Only use if unable to eat or drink atorvastatin 40 mg tablet 40 mg PO DAILY allopurinol 100 mg tablet 200 mg PO DAILY losartan 100 mg tablet 100 mg PO DAILY nifedipine 30 mg tablet extended release 24hr 30 mg PO DAILY furosemide 20 mg tablet 20 mg PO DAILY labetalol 100 mg tablet PO topiramate 25 mg tablet 25 mg PO TID meclizine 25 mg tablet 25 mg PO BID buprenorphine [Butrans] 15 mcg/hour patch weekly 1 patch transdermal Q7D 28 Days Qty: 4 1RF Rx Instructions: Pain control duloxetine 30 mg capsule,delayed release(DR/EC) 30 mg PO BID 30 Days Qty: 60 0RF Rx Instructions: SHOULD TAKE 1 CAP/DAY X 7 DAYS THEN 2 CAPS/DAY Referrals: Beau Perez MD [Primary Care Provider] - 05/17/23 Discharge Date/Time: 05/14/23 18:21
[2023-05-14 13:34] LABS: MANUAL DIFF FLAG NO
[2023-05-14] MEDS: 0.9 % Sodium Chloride 500 ML 999 ML IV (13:34)
[2023-05-14 13:39] LABS: Basophils Percent Auto 0.3 % (0-2); Eosinophils Percent Auto 0.2 % (0-4); Hematocrit 42.8 % (37.0-47.0); Hemoglobin 14.7 g/dl (12.0-16.0); Imm Gran Abs Auto 0.04 X10*3/uL (0.00-0.03); Imm Gran Pct Auto 0.3 % (0.0-0.4); Lymphocytes Absolute Auto 1.6 X10*3/uL (1.2-4.9); Lymphocytes Percent Auto 12.1 % (20-40); Mean Corpuscular HGB Conc 34.3 g/dl (31.0-35.0); Mean Corpuscular Hemoglobin 30.8 pg (27.0-33.0); Mean Corpuscular Volume 89.5 fL (80.0-98.0); Monocytes Absolute Auto 0.9 X10*3/uL (0.1-1.2); Monocytes Percent Auto 6.6 % (2-11); Neutrophils Absolute Auto 10.7 x10*3/uL (2.0-8.3); Neutrophils Percent Auto 80.5 % (45-73); Platelet Count 331 X10*3/uL (160-400); Red Blood Count 4.78 X10*6/uL (4.20-5.50); Red Cell Distribution Width 12.2 % (11.0-16.0); White Blood Count 13.3 X10*3/uL (4.8-10.8)
[2023-05-14] MEDS: HYDROmorphone HCl 0.5 MG/0.5 ML SYRINGE IVPUSH ×2 (13:41→16:32)
[2023-05-14 13:53] LABS: Alanine Aminotransferase 5 U/L (0-31); Alkaline Phosphatase 74 U/L (39-117); Anion Gap 15 (12-20); Aspartate Amino Transferase 19 U/L (5-31); Bilirubin Direct 0.2 mg/dL (0.0-0.5); Bilirubin Total 0.5 mg/dL (0.0-1.0); Blood Urea Nitrogen 26 mg/dL (9-16); Calcium 10.1 mg/dL (8.4-10.2); Carbon Dioxide 23 mmol/L (22-29); Chloride 111 mmol/L (96-108); Creatinine Clr Calc Pharmacy 38.3; Estimated Glomerular Filt Rate 56; Glucose Random 65 mg/dL (60-115); Potassium 3.9 mmol/L (3.3-5.1); Sodium 145 mmol/L (135-145); Total Protein 7.3 g/dL (6.5-8.0)
[2023-05-14 13:56] LABS: Troponin-I High Sensitivity 8.6 ng/L (<3.5-17.0)
[2023-05-14 14:00] VITALS: BP 170/70; PULSE 66; RESP 12; TEMP 36.9
[2023-05-14 14:30] VITALS: BP 177/66; PULSE 69; RESP 12; TEMP 36.8; O2SAT 97
--- NOTE | 2023-05-14 15:04 | MHC.EDTECH ---
Pt currently in c-collar. Per Amira RN, Pt to be changed once c-collar comes of. RN aware Pt c/o needing depend changed.
[2023-05-14 17:18] LABS: Appearance Urine Clear; Color Urine Yellow; Glucose Urine UA Negative (Negative); Leukocyte Esterase Urine Negative (Negative); Nitrite Urine Negative (Negative); Specific Gravity - Urine 1.015 (1.005-1.025); UMIC TRIGGER UACC YES; Urine Blood Negative (Negative); Urine Ketones Trace mg/dL (Negative); Urine Protein 300 (3+) mg/dL (Neg-Trace)
[2023-05-14 17:30] LABS: Bacteria Urine None Seen (None Seen); Hyaline Casts Urine 0-2 /LPF (0-2); RBC Urine 0-2 /HPF (0-2); Squamous Epithelial Cell Urine 0-2 /HPF (0-2); WBC Urine 0-5 /HPF (0-5)
--- NOTE | 2023-05-14 18:20 | PC.NURSE ---
pt incontinent of urine as on ground in bedroom for several hours.
== END 2023-05-14 18:21 | disposition home or self-care (01) ==
PROVIDERS: Emergency Provider Emergency Medicine Emergency Medical Services; PCP Internal Medicine
DX: S00.93XA Contusion of unspecified part of head, initial encounter (principal); S09.90XA Unspecified injury of head, initial encounter; S51.011A Laceration without foreign body of right elbow, initial encounter; W06.XXXA Fall from bed, initial encounter; E11.9 Type 2 diabetes mellitus without complications; I10 Essential (primary) hypertension; E78.00 Pure hypercholesterolemia, unspecified; Z79.899 Other long term (current) drug therapy; Z79.02 Long term (current) use of antithrombotics/antiplatelets; Y93.9 Activity, unspecified; Y92.032 Bedroom in apartment as the place of occurrence of the external cause; Y99.9 Unspecified external cause status
CPT/HCPCS: 36415; 51701; 70450; 71250; 72125; 73070; 74176; 80048; 80076; 81001; 82550; 84484; 85025; 93005; 96361; 96374; 96376; 99284; 99285; J1170

== ENCOUNTER → 2023-05-14 12:59 | Outpatient (BNV) | payer MEDICARE, OTHER, SELFPAY | PROVIDERS: Emergency Provider Emergency Medicine Emergency Medical Services; PCP Internal Medicine; Visit Provider Internal Medicine Cardiovascular Disease | DX: R94.31 Abnormal electrocardiogram [ECG] [EKG] (principal); I44.7 Left bundle-branch block, unspecified | CPT/HCPCS: 93010 ==

== ENCOUNTER 2023-05-16 10:29 | Emergency (ER) | payer MEDICARE, OTHER, SELFPAY ==
--- NOTE | ~2023-05-16 | XR_ITS ---
EXAMINATION: XR CHEST 2 VIEW CLINICAL INFORMATION: General weakness COMPARISON: 02/22/2011 TECHNIQUE: PA and lateral views of the chest obtained. FINDINGS: The lungs are clear. There are no pleural effusions. The cardiomediastinal silhouette is normal. XR/XR chest 2V IMPRESSION: No acute cardiopulmonary disease.
[2023-05-16 10:52] VITALS: BP 170/80; BP 177/67; PULSE 63; PULSE 67; RESP 20; TEMP 36.8; O2SAT 100; O2SAT 98; BMI 26.1
[2023-05-16 10:59] LABS: Glucose, Whole Blood 76 mg/dL (60-115)
--- NOTE | 2023-05-16 11:32 | PC.NURSE ---
pt POC obtained on arrival 76ng/dl pt changed into hospital attire, monitoring coordinator applied call bellwithin reach
--- NOTE | 2023-05-16 11:35 | PC.NURSE ---
pt is alert and oriented x3, skin pwd, respirations even and unlabored, pt has old bruising g on her abd, left forearm wrapped in gauze, right arm wrapped as well -pt states having a fall this passed Monday, pt reports chronic neck pain at 5/10 but no new pain at this time. pt reports feeling generally weak this morning and could not get out of bed. vs stable at this time, ns on the monitor
--- NOTE | 2023-05-16 11:46 | ECG_ITS ---
Test Reason : WEAKNESS Blood Pressure : / mmHG Vent. Rate : 073 BPM Atrial Rate : 357 BPM P-R Int : 000 ms QRS Dur : 164 ms QT Int : 442 ms P-R-T Axes : 035 -24 099 degrees QTc Int : 486 ms Normal sinus rhythm Left bundle branch block Abnormal ECG When compared with ECG of 14-MAY-2023 13:34, No significant changes seen Referred By: Generic ED Physician Electronically Signed By:Say Barahona
[2023-05-16 12:47] LABS: Appearance Urine Clear; Color Urine Yellow; Glucose Urine UA Negative (Negative); Leukocyte Esterase Urine Small (1+) (Negative); Nitrite Urine Negative (Negative); Specific Gravity - Urine 1.015 (1.005-1.025); UMIC TRIGGER UACC YES; Urine Blood Negative (Negative); Urine Ketones Negative (Negative); Urine Protein 100 (2+) mg/dL (Neg-Trace)
[2023-05-16 12:50] LABS: Bacteria Urine None Seen (None Seen); Hyaline Casts Urine 0-2 /LPF (0-2); RBC Urine 0-2 /HPF (0-2); Squamous Epithelial Cell Urine 0-2 /HPF (0-2); UACC Culture Trigger YES
[2023-05-16 12:54] LABS: MANUAL DIFF FLAG NO
[2023-05-16 13:02] LABS: Basophils Percent Auto 0.3 % (0-2); Eosinophils Absolute Auto 0.1 X10*3/uL (0.0-0.4); Eosinophils Percent Auto 0.8 % (0-4); Hematocrit 41.5 % (37.0-47.0); Hemoglobin 13.7 g/dl (12.0-16.0); Imm Gran Abs Auto 0.04 X10*3/uL (0.00-0.03); Imm Gran Pct Auto 0.4 % (0.0-0.4); Lymphocytes Absolute Auto 1.8 X10*3/uL (1.2-4.9); Lymphocytes Percent Auto 16.6 % (20-40); Mean Corpuscular Hemoglobin 30.8 pg (27.0-33.0); Mean Corpuscular Volume 93.3 fL (80.0-98.0); Monocytes Absolute Auto 0.9 X10*3/uL (0.1-1.2); Monocytes Percent Auto 8.1 % (2-11); Neutrophils Absolute Auto 7.9 x10*3/uL (2.0-8.3); Neutrophils Percent Auto 73.8 % (45-73); Platelet Count 304 X10*3/uL (160-400); Red Blood Count 4.45 X10*6/uL (4.20-5.50); Red Cell Distribution Width 12.3 % (11.0-16.0); White Blood Count 10.7 X10*3/uL (4.8-10.8)
[2023-05-16 13:17] LABS: Alanine Aminotransferase < 5 U/L (0-31); Albumin Level 3.7 g/dL (3.5-5.0); Alkaline Phosphatase 74 U/L (39-117); Anion Gap 15 (12-20); Aspartate Amino Transferase 19 U/L (5-31); Bilirubin Direct 0.2 mg/dL (0.0-0.5); Bilirubin Total 0.5 mg/dL (0.0-1.0); Blood Urea Nitrogen 36 mg/dL (9-16); Calcium 9.6 mg/dL (8.4-10.2); Carbon Dioxide 27 mmol/L (22-29); Chloride 108 mmol/L (96-108); Creatinine Clr Calc Pharmacy 33.1; Estimated Glomerular Filt Rate 47; Glucose Random 114 mg/dL (60-115); Lipase 19 U/L (8-78); Potassium 4.2 mmol/L (3.3-5.1); Sodium 146 mmol/L (135-145); Total Protein 6.8 g/dL (6.5-8.0); Troponin-I High Sensitivity 10.3 ng/L (<3.5-17.0)
--- NOTE | 2023-05-16 13:23 | ED.GENADULT ---
HPI - General Adult General Chief complaint: General Medical Stated complaint: WEAK,SEEN RECENTLY FOR FALL PER EMS Time Seen by Provider: 05/16/23 13:10 Source: patient and family Mode of arrival: EMS Limitations: no limitations History of Present Illness HPI narrative: Patient comes to the emergency room accompanied by her family via ambulance. Patient reports that in the morning she was too weak to get out of the bed and open the door for her [employer] who visits her every day. Family reports that patient has had multiple of these episodes in the past. Patient suspects that the problem is that her glucose is low in the morning. Today, after the CTA was able to get in to the house, patient drank 2 protein shakes and started feeling fairly well almost immediately. Patient states that she hates checking her blood glucose and therefore does not know what her glucose numbers are. Of note, patient had a recent fall 2 days ago, patient fell out of bed, patient was on the ground for several hours. Patient came to this hospital for evaluation 2 days ago, patient healing well from her previous injuries. Related Data Home Medications Medication Instructions Recorded Confirmed allopurinol 100 mg tablet 200 mg PO DAILY 07/13/20 04/20/21 atorvastatin 40 mg tablet 40 mg PO DAILY 07/13/20 04/20/21 furosemide 20 mg tablet 20 mg PO DAILY 07/13/20 04/20/21 labetalol 100 mg tablet mg PO 07/13/20 04/20/21 losartan 100 mg tablet 100 mg PO DAILY 07/13/20 04/20/21 meclizine 25 mg tablet 25 mg PO BID 07/13/20 04/20/21 nifedipine 30 mg tablet,extended 30 mg PO DAILY 07/13/20 04/20/21 release 24 hr topiramate 25 mg tablet 25 mg PO TID 07/13/20 04/20/21 Previous Rx's Medication Instructions Recorded buprenorphine 15 mcg/hour weekly 1 patch transdermal Q7D 28 days #4 03/23/21 transdermal patch (Butrans) ea duloxetine 30 mg capsule,delayed 30 mg PO BID 30 days #60 caps 04/20/21 release hydrocodone 5 mg-acetaminophen 325 1 tab PO BEDTIME PRN pain 30 days 05/19/21 mg tablet #30 tabs cyclobenzaprine 5 mg tablet 5 mg PO TID PRN muscle spasm #10 03/25/22 tabs lidocaine 5 % topical patch 1 patch topical DAILY #15 ea 03/25/22 cefuroxime axetil 500 mg tablet 500 mg PO BID #13 tabs 05/16/23 glucagon HCl 1 mg solution for 1 mg subcut Q20M PRN hypoglycemia 05/16/23 injection (Glucagon (HCl) #1 ea Emergency Kit) Allergies Allergy/AdvReac Type Severity Reaction Status Date / Time capsaicin [From DICLOPAK] Allergy Unknown RASH Verified 05/16/23 10:58 diclofenac [From DICLOPAK] Allergy Unknown RASH Verified 05/16/23 10:58 tolmetin [From Tolectin] Allergy swelling,ra Verified 05/16/23 10:58 Review of Systems Review of Systems: Constitutional : No Weight loss, No Fever, No Chills, No Night Sweats, No Fatigue, No Malaise, weakness in the morning ENT/Mouth : No Hearing loss, No Ear Pain, No Nasal Congestion, No Sinus Pain, No Hoarseness, No sore throat, No Rhinorrhea, No Swallowing Difficulty Eyes: No Eye Pain, No Swelling, No Redness, No Foreign Body, No Discharge, No Vision Changes Cardiovascular : No Chest Pain, No SOB, No Dyspnea on Exertion, No Orthopnea, No Edema, No Palpitations Respiratory : No Cough, No Sputum, No Wheezing, No Smoke Exposure, No Dyspnea Gastrointestinal : No Nausea, No Vomiting, No Diarrhea, No Constipation, No abdominal Pain, No Hematochezia, No Melena Genitourinary : no irregular bleeding, No Dysuria, No Urinary Frequency, No Hematuria, No Urinary Incontinence, No Urgency, No Flank Pain, No Urinary Flow Changes, No Hesitancy Musculoskeletal : No joint pain, No Myalgias, No Joint Swelling Skin : No Skin Lesions, No rash Neuro : No Weakness, No Numbness, No Paresthesias, No Loss of Consciousness, No Dizziness, No Headache Psych : No Anxiety/Panic, No Depression, No SI/HI/AH/VH, No Social Issues, Heme/Lymph: No Bruising, No Bleeding,No Lymphadenopathy Endocrine : No Polyuria, No Polydipsia, possible low blood sugars [facility] Past Medical History Medical History DISH (diffuse idiopathic skeletal hyperostosis) Thoracic spondylosis Cervical spondylosis Chronic pain syndrome Disc degeneration, lumbar Spondylosis of lumbosacral joint without myelopathy Social History Social History Alcohol intake: current Alcohol intake frequency: does not drink Patient Tobacco Use Status: Never used Tobacco Advance Directives: Yes Advance Directives on File: Yes Advance Directives Date on File: 05/14/23 Physical Exam ED Vital Signs: Vital Signs - 24 hr 05/16/23 10:52 05/16/23 13:28 Temperature 98.3 F 97.9 F Pulse Rate 63 71 Respiratory Rate 20 19 Blood Pressure 177/67 H 187/71 H Pulse Oximetry 98 97 Oxygen Delivery Method Room Air Room Air BMI result Body Mass Index 26.1 Const Other: Appearance: Alert. Oriented X3. No acute distress. Eyes: Pupils equal, round and reactive to light. ENT: Pharynx normal. Neck: Normal inspection. Neck supple. No lymph nodes noted. No crepitus CVS: Normal heart rate and rhythm. Pulses normal. Normal S1 and S2 Respiratory: No respiratory distress. Breath sounds normal. No Wheezing. No rales Abdomen: Soft and nontender. No rigidity. No distention. Skin: Skin warm and dry. Normal skin color. Normal skin turgor. Extremities: No lower extremity edema. No Lacerations. No Rash Neuro: Oriented X 3. No motor deficit. No sensory deficit. Moving all extremities. No slurred speech. CN 2 through 12 grossly intact Psych: calm, cooperative, normal affect Course Course Course Narrative: -all of patient's labs pending -here in the hospital, patient was able to ambulate by herself to the bathroom without any difficulty Medications Administered Discontinued Medications Generic Name Dose Route Start Last Admin Trade Name Celi PRN Reason Stop Dose Admin Cefuroxime Axetil 500 mg 05/16/23 13:29 05/16/23 13:44 Cefuroxime Axetil 500 Mg Tablet PO 05/16/23 13:30 500 mg ONCE ONE Administration Medical Decision Making Medical Decision Making MDM Narrative: -my interpretation of labs: Hematology at baseline, normal white blood cell count, no electrolyte abnormalities, normal troponin at baseline. Patient has a small amount of leukocyte esterase and white blood cell count in the urine. Patient states that she has no urinary symptoms. However, because she reports weakness, I discussed with the patient her family the which should go ahead and treat, all agree with plan. -given the patient's and her family's history, seems the patient may have hypoglycemic events in the morning. However, difficult to tell since patient refuses to check her blood sugars -patient agrees to check her blood sugars in the morning at least for a few days until we know what her real numbers are. In the meantime, I asked the patient to decrease her Levemir insulin from 58 units to 48 units. Patient was given a prescription for glucagon emergency kit. For the next few days, patient will be staying at her daughter's house. Per patient's request, case Management will be helping the patient to get VNA services. -patient was given ceftriaxone in the ED for UTI Differential Diagnosis Differential Diagnoses: The differential diagnosis associated with the presentation includes (Hypoglycemia, UTI, deconditioning) Lab Data MDM Lab Attestation statement: I reviewed the patient's lab results. 05/16/23 12:51 05/16/23 12:51 Labs: Lab Results 05/16/23 05/16/23 05/16/23 Range/Units 10:55 12:38 12:51 WBC 10.7 (4.8-10.8) X10*3/uL RBC 4.45 (4.20-5.50) X10*6/uL Hgb 13.7 (12.0-16.0) g/dl Hct 41.5 (37.0-47.0) % MCV 93.3 (80.0-98.0) fL MCH 30.8 (27.0-33.0) pg MCHC 33.0 (31.0-35.0) g/dl RDW 12.3 (11.0-16.0) % Plt Count 304 (160-400) X10*3/uL MPV 10.0 (9.4-12.3) fL Immature Gran % (Auto) 0.4 (0.0-0.4) % Neut % (Auto) 73.8 H (45-73) % Lymph % (Auto) 16.6 L (20-40) % Cotton % (Auto) 8.1 (2-11) % Eos % (Auto) 0.8 (0-4) % Baso % (Auto) 0.3 (0-2) % Lymph # (Auto) 1.8 (1.2-4.9) X10*3/uL Cotton # (Auto) 0.9 (0.1-1.2) X10*3/uL Eos # (Auto) 0.1 (0.0-0.4) X10*3/uL Baso # (Auto) 0.0 (0.0-0.2) X10*3/uL Abs Immat Gran (auto) 0.04 H (0.00-0.03) X10*3/uL Absolute Neuts (auto) 7.9 (2.0-8.3) x10*3/uL Absolute Nucleated RBC 0.000 (0.0-0.012) X10*3/uL Nucleated RBC % (auto) 0.0 (0.0-0.2) /100WBC Sodium 146 H (135-145) mmol/L Potassium 4.2 (3.3-5.1) mmol/L Chloride 108 (96-108) mmol/L Carbon Dioxide 27 (22-29) mmol/L Anion Gap 15 (12-20) BUN 36 H (9-16) mg/dL Creatinine 1.11 (0.5-1.4) mg/dL Estim Creat Clear Calc 33.1 Estimated GFR 47 POC Glucose 76 (60-115) mg/dL Random Glucose 114 (60-115) mg/dL Estimat Average Glucose 148 mg/dL Hemoglobin A1c % 6.8 H (<6.0) % Calcium 9.6 (8.4-10.2) mg/dL Total Bilirubin 0.5 (0.0-1.0) mg/dL Direct Bilirubin 0.2 (0.0-0.5) mg/dL AST 19 (5-31) U/L ALT < 5 (0-31) U/L Alkaline Phosphatase 74 (39-117) U/L Troponin I High Sens 10.3 (<3.5-17.0) ng/L Total Protein 6.8 (6.5-8.0) g/dL Albumin 3.7 (3.5-5.0) g/dL Lipase 19 (8-78) U/L Urine Color Yellow Urine Appearance Clear Urine pH 7.0 (5.0-9.0) Ur Specific [place] 1.015 (1.005-1.025) Urine Protein 100 (2+) H (Neg-Trace) mg/dL Urine Glucose (UA) Negative (Negative) mg/dL Urine Ketones Negative (Negative) mg/dL Urine Blood Negative (Negative) Urine Nitrite Negative (Negative) Ur Leukocyte Esterase Small (1+) H (Negative) Urine RBC 0-2 (0-2) /HPF Urine WBC 6-10 H (0-5) /HPF Ur Squamous Epith Cells 0-2 (0-2) /HPF Urine Bacteria None Seen (None Seen) Hyaline Casts 0-2 (0-2) /LPF COVID-19 ([facility]) (Negative) COVID-19 Clin Com 05/16/23 Range/Units 13:22 WBC (4.8-10.8) X10*3/uL RBC (4.20-5.50) X10*6/uL Hgb (12.0-16.0) g/dl Hct (37.0-47.0) % MCV (80.0-98.0) fL MCH (27.0-33.0) pg MCHC (31.0-35.0) g/dl RDW (11.0-16.0) % Plt Count (160-400) X10*3/uL MPV (9.4-12.3) fL Immature Gran % (Auto) (0.0-0.4) % Neut % (Auto) (45-73) % Lymph % (Auto) (20-40) % Cotton % (Auto) (2-11) % Eos % (Auto) (0-4) % Baso % (Auto) (0-2) % Lymph # (Auto) (1.2-4.9) X10*3/uL Cotton # (Auto) (0.1-1.2) X10*3/uL Eos # (Auto) (0.0-0.4) X10*3/uL Baso # (Auto) (0.0-0.2) X10*3/uL Abs Immat Gran (auto) (0.00-0.03) X10*3/uL Absolute Neuts (auto) (2.0-8.3) x10*3/uL Absolute Nucleated RBC (0.0-0.012) X10*3/uL Nucleated RBC % (auto) (0.0-0.2) /100WBC Sodium (135-145) mmol/L Potassium (3.3-5.1) mmol/L Chloride (96-108) mmol/L Carbon Dioxide (22-29) mmol/L Anion Gap (12-20) BUN (9-16) mg/dL Creatinine (0.5-1.4) mg/dL Estim Creat Clear Calc Estimated GFR POC Glucose (60-115) mg/dL Random Glucose (60-115) mg/dL Estimat Average Glucose mg/dL Hemoglobin A1c % (<6.0) % Calcium (8.4-10.2) mg/dL Total Bilirubin (0.0-1.0) mg/dL Direct Bilirubin (0.0-0.5) mg/dL AST (5-31) U/L ALT (0-31) U/L Alkaline Phosphatase (39-117) U/L Troponin I High Sens (<3.5-17.0) ng/L Total Protein (6.5-8.0) g/dL Albumin (3.5-5.0) g/dL Lipase (8-78) U/L Urine Color Urine Appearance Urine pH (5.0-9.0) Ur Specific [place] (1.005-1.025) Urine Protein (Neg-Trace) mg/dL Urine Glucose (UA) (Negative) mg/dL Urine Ketones (Negative) mg/dL Urine Blood (Negative) Urine Nitrite (Negative) Ur Leukocyte Esterase (Negative) Urine RBC (0-2) /HPF Urine WBC (0-5) /HPF Ur Squamous Epith Cells (0-2) /HPF Urine Bacteria (None Seen) Hyaline Casts (0-2) /LPF COVID-19 ([facility]) Negative (Negative) COVID-19 Clin Com See Note Independent Interpretation I performed an independent interpretation of an: EKG (My interpretation of EKG: Normal sinus rhythm, heart rate 73, left bundle-branch block, no concerns for STEMI, QTC 486), Plain X-Ray (My interpretation of chest x-ray: No infiltrates) and CT Scan Radiology Impression Discussion of test interpretation with radiology: I have reviewed the radiologist's reading. Radiologist Impression: FINDINGS: The lungs are clear. There are no pleural effusions. The cardiomediastinal silhouette is normal. XR/XR chest 2V IMPRESSION: No acute cardiopulmonary disease. Independent Historian Clinical information obtained from an independent historian. History obtained from or confirmed by: Other (Daughter) Discharge Plan Discharge Clinical Impression: Acute UTI, Hypoglycemia due to insulin Patient Disposition: Home, Self-Care Instructions: Hypoglycemia in a Person with Diabetes (ED), What to Do if Your Blood Sugar is Low (ED) Additional Instructions: Please make sure that you check your blood sugars every day at least once a day in the morning, especially if you are symptomatic. You will receive a phone call at home to let you know which VNA agency will be working with you. Please follow-up with your primary care physician tomorrow. If you have any worsening or new symptoms, please return to the emergency room or call 911 Prescriptions: New cefuroxime axetil 500 mg tablet 500 mg PO BID Qty: 13 0RF glucagon HCl [Glucagon (HCl) Emergency Kit] 1 mg recon soln 1 mg subcut Q20M PRN (Reason: hypoglycemia) Qty: 1 0RF Rx Instructions: until target blood sugar attained. Only use if unable to eat or drink No Action hydrocodone-acetaminophen 5-325 mg tablet 1 tab PO BEDTIME PRN (Reason: pain) 30 Days Qty: 30 0RF cyclobenzaprine 5 mg tablet 5 mg PO TID PRN (Reason: muscle spasm) Qty: 10 0RF lidocaine 5 % adhesive patch,medicated 1 patch topical DAILY Qty: 15 0RF Rx Instructions: leave on most painful area for up to 12 hrs atorvastatin 40 mg tablet 40 mg PO DAILY allopurinol 100 mg tablet 200 mg PO DAILY losartan 100 mg tablet 100 mg PO DAILY nifedipine 30 mg tablet extended release 24hr 30 mg PO DAILY furosemide 20 mg tablet 20 mg PO DAILY labetalol 100 mg tablet PO topiramate 25 mg tablet 25 mg PO TID meclizine 25 mg tablet 25 mg PO BID buprenorphine [Butrans] 15 mcg/hour patch weekly 1 patch transdermal Q7D 28 Days Qty: 4 1RF Rx Instructions: Pain control duloxetine 30 mg capsule,delayed release(DR/EC) 30 mg PO BID 30 Days Qty: 60 0RF Rx Instructions: SHOULD TAKE 1 CAP/DAY X 7 DAYS THEN 2 CAPS/DAY
[2023-05-16 13:28] VITALS: BP 187/71; PULSE 71; RESP 19; TEMP 36.6; O2SAT 97
--- NOTE | 2023-05-16 13:31 | PC.NURSE ---
pt assisted to BR, able to ambulate with RW, urine sample obtainered. 1.5in skin tear on right elbow present. pt sts that this injury occurred on Monday, but she failed to mention it when she was here on Monday. dressing was removed and purulent, foul smelling drainage noted. area cleansed with NS followed by telfa, kerlix and tape.
[2023-05-16 13:43] LABS: COVID-19 Test Negative (Negative); IDNOW Serial# 08D9AD1C
[2023-05-16] MEDS: cefuroxime axetiL 500 MG TABLET PO (13:44)
--- NOTE | 2023-05-16 13:46 | PC.NURSE ---
pt medicated per MAR
[2023-05-16 13:51] LABS: Estimated Average Glucose 148 mg/dL; Hemoglobin A1c % 6.8 % (<6.0)
--- NOTE | 2023-05-16 15:05 | MHC.CM.ED ---
Received case management consult from Dr Cook. Patient came to the ER due to weakness. Patient has a history of diabetes. Patient's blood sugar has been low in the morning. Patient is requesting additional help at home. Met with patient in regards to discharge planning. Patient lives alone and has a friend that helps her once a week. PCP verified. Copy of HCP verified to be on file. Patient received 3 Moderna and 1 Pfizer vaccines. Patient agreeable to referral being broadcasted in [facility] for [facility]p. Patient also requesting help daily to get out of bed because I'm very weak in the morning. T/W explained [facility] would not be able to assist with this. Patient agreeable to referral to [facility] so they can see if they can assist with any additional help at home. [facility] is able to accept patient. Patient agreeable. Patient's family will transport her home. Dr Cook aware. Continue to monitor for d/c needs.
== END 2023-05-16 16:55 | disposition home or self-care (01) ==
PROVIDERS: Emergency Provider Emergency Medicine; PCP Internal Medicine
DX: N39.0 Urinary tract infection, site not specified (principal); R73.9 Hyperglycemia, unspecified; I44.7 Left bundle-branch block, unspecified; Z79.899 Other long term (current) drug therapy; Z20.822 Contact with and (suspected) exposure to COVID-19; Z11.52 Encounter for screening for COVID-19
CPT/HCPCS: 36415; 71046; 80048; 80076; 81001; 82947; 83036; 83690; 84484; 85025; 87086; 87635; 93005; 99284

== ENCOUNTER → 2023-05-16 11:46 | Outpatient (BNV) | payer MEDICARE, OTHER, SELFPAY | PROVIDERS: PCP Internal Medicine; Visit Provider Internal Medicine Cardiovascular Disease | DX: R94.31 Abnormal electrocardiogram [ECG] [EKG] (principal); I44.7 Left bundle-branch block, unspecified | CPT/HCPCS: 93010 ==

== ENCOUNTER 2023-09-25 15:54 | Outpatient (REF) | payer MEDICARE, OTHER, SELFPAY ==
[2023-09-26 05:22] LABS: Estimated Average Glucose 180 mg/dL; Hemoglobin A1C 215.4963 umol/L; Hemoglobin A1c % 7.9 % (<6.0)
== END 2023-09-25 15:55 | disposition home or self-care (01) ==
LOC: HO.MANLDS 15:54
PROVIDERS: Visit Provider Internal Medicine
DX: E11.9 Type 2 diabetes mellitus without complications (principal)
CPT/HCPCS: 36415; 83036

== ENCOUNTER 2023-12-18 14:05 | Emergency (ER) | payer MEDICARE, OTHER, SELFPAY ==
[2023-12-18] VITALS (7 sets, daily range): BP systolic 159–214; BP diastolic 56–102; PULSE 67–96; RESP 13–24; TEMP 36.6–36.8; O2SAT 95–98; BMI 28.3
--- NOTE | ~2023-12-18 | XR_ITS ---
EXAMINATION: XR ELBOW, LEFT CLINICAL INFORMATION: Pain following fall COMPARISON: None available. TECHNIQUE: AP, lateral, and oblique views of the left elbow. FINDINGS: The bones and soft tissues are normal. No fracture or joint effusion. Alignment is anatomic. Joint spaces are maintained. There is soft tissue swelling adjacent to olecranon XR/XR elbow LT min 3V IMPRESSION: No fracture or joint effusion seen. Mild posttraumatic olecranon bursitis
--- NOTE | ~2023-12-18 | CT_ITS ---
EXAMINATION: CT HEAD WITHOUT CONTRAST CT CERVICAL SPINE WITHOUT CONTRAST CLINICAL INFORMATION: Fall, pain. COMPARISON: CT head and cervical spine 05/14/2023. TECHNIQUE: Contiguous axial imaging was performed from the skull base to vertex without intravenous administration of contrast. Contiguous axial imaging was performed from the upper chest through the skull base without intravenous administration of contrast. Coronal and sagittal reformats were obtained at the acquisition workstation. This CT examination was performed using dose optimization techniques as appropriate, variously including the following: *Automated exposure control *Adjustment of mA and/or kV according to patient size (this includes techniques or standardized protocols for targeted exams where dose is matched to indication/reason for exam; i.e. extremities or head) *Use of iterative reconstruction technique DLP: 1536 mGy-cm FINDINGS: Head: There is no evidence of acute intracranial hemorrhage or edematous territorial infarction. Scattered hypoattenuation in the periventricular and deep white matter are consistent with moderate microangiopathy. Brownlee-white matter differentiation is preserved. Proportional prominence of the ventricles and sulcal spaces. No evidence for obstructive hydrocephalus. No abnormal mass effect or midline shift. No extra-axial fluid collections. No acute soft tissue or osseous abnormalities. The paranasal sinuses are clear. Left mastoid effusion. Bilateral lens extraction. Cervical Spine: The atlantooccipital and atlantoaxial articulations remain well aligned. Unchanged trace anterolisthesis of C3 on C4. Otherwise, there is anatomic alignment of the vertebral bodies and posterior elements. No evidence of acute fracture or subluxation. Moderate multilevel cervical spondylosis with intervertebral disc height loss, marginal osteophytes and facet/uncovertebral hypertrophy leading to various degrees of neural foraminal encroachment. Of note, CT is insensitive for evaluation of the central spinal canal in the absence of intrathecal contrast. There is no prevertebral soft tissue swelling. Subcentimeter left-sided thyroid nodule, for which no imaging follow-up is recommended. Remaining cervical soft tissues are normal in appearance. The lung apices demonstrate no abnormalities. CT/CT cervical spine wo IV con IMPRESSION: 1. No acute intracranial pathology. 2. Chronic microangiopathy and generalized cerebral volume loss. 3. No acute cervical spinal fractures or malalignment. 4. Moderate cervical spondylosis.
--- NOTE | ~2023-12-18 | CT_ITS ---
EXAMINATION: CT CHEST WITHOUT CONTRAST CLINICAL INFORMATION: left lower rib pain. COMPARISON: 05/14/[address] scan. TECHNIQUE: Multidetector volumetric imaging was performed from the thoracic inlet through the lung bases without contrast. Sagittal and coronal reformatted images were obtained on the technologist workstation. Soft tissue and lung algorithms evaluated. Thick slab MIP images were performed to increase nodule conspicuity. This CT examination was performed using dose optimization techniques as appropriate, variously including the following: *Automated exposure control *Adjustment of mA and/or kV according to patient size (this includes techniques or standardized protocols for targeted exams where dose is matched to indication/reason for exam; i.e. extremities or head) *Use of iterative reconstruction technique DLP: 266 mGy-cm. FINDINGS: LUNG: Linear atelectasis or scarring in the right upper lobe along the right minor fissure. Otherwise the lungs are clear without focal opacity or nodule. MEDIASTINUM: Vascular calculation within the aorta and coronary vessels. Shotty mediastinal lymph nodes but no bulky adenopathy CORONARY ARTERY CALCIFICATION: Moderate PERICARDIUM/PLEURA: No significant effusion. No pleural mass or thickening. THYROID/VISUALIZED LOWER NECK: Unremarkable. CHEST WALL/AXILLA: Unremarkable. VISUALIZED UPPER ABDOMEN: Rim calcified cyst in the left lobe the liver measures 6.7 cm in size, unchanged from the prior study. Gallbladder surgically absent BONES: Multilevel degenerative changes in the spine CT/CT chest wo IV con IMPRESSION: Chronic appearing changes similar to the 05/14/[address] scan. I do not appreciate any acute bony abnormality.
--- NOTE | 2023-12-18 14:17 | ECG_ITS ---
Test Reason : CHEST PAIN Blood Pressure : / mmHG Vent. Rate : 086 BPM Atrial Rate : 086 BPM P-R Int : 162 ms QRS Dur : 158 ms QT Int : 436 ms P-R-T Axes : 028 -19 102 degrees QTc Int : 521 ms Normal sinus rhythm Left bundle branch block Abnormal ECG When compared with ECG of 16-MAY-2023 12:18, T wave inversion no longer evident in Inferior leads Referred By: Generic ED Physician Electronically Signed By:WALKER COREAS MD
--- NOTE | 2023-12-18 14:35 | PC.NURSE ---
Patient VEDA from home after falling outside while trying to water a plant, was on the ground for over an hour before a bystander heard her and called EMS. Patient extremely hot to touch, no fever orally, C-collar still on, several scrapes and bruises on L arm/bilat legs, patient has not taken home BP meds today, has pain patch on L shoulder for chronic back/knee pain.
[2023-12-18 14:40] LABS: MANUAL DIFF FLAG NO
[2023-12-18 14:41] LABS: Basophils Absolute Auto 0.1 X10*3/uL (0.0-0.2); Basophils Percent Auto 0.7 % (0-2); Eosinophils Absolute Auto 0.2 X10*3/uL (0.0-0.4); Eosinophils Percent Auto 2.2 % (0-4); Hematocrit 39.6 % (37.0-47.0); Hemoglobin 13.4 g/dl (12.0-16.0); Imm Gran Abs Auto 0.06 X10*3/uL (0.00-0.03); Imm Gran Pct Auto 0.7 % (0.0-0.4); Lymphocytes Absolute Auto 2.2 X10*3/uL (1.2-4.9); Lymphocytes Percent Auto 24.1 % (20-40); Mean Corpuscular HGB Conc 33.8 g/dl (31.0-35.0); Mean Corpuscular Hemoglobin 29.6 pg (27.0-33.0); Mean Corpuscular Volume 87.4 fL (80.0-98.0); Mean Platelet Volume 9.9 fL (9.4-12.3); Monocytes Absolute Auto 0.7 X10*3/uL (0.1-1.2); Monocytes Percent Auto 7.7 % (2-11); Neutrophils Absolute Auto 5.9 x10*3/uL (2.0-8.3); Neutrophils Percent Auto 64.6 % (45-73); Platelet Count 300 X10*3/uL (160-400); Red Blood Count 4.53 X10*6/uL (4.20-5.50); Red Cell Distribution Width 12.4 % (11.0-16.0); White Blood Count 9.1 X10*3/uL (4.8-10.8)
--- NOTE | 2023-12-18 14:45 | PC.NURSE ---
Patient requested for her children to be called to inform them she is here, left messages for both son and daughter w/ callback number.
[2023-12-18 14:48] LABS: Glucose, Whole Blood 247 mg/dL (60-115)
--- NOTE | 2023-12-18 14:49 | ED_ITS ---
HPI - Fall General Chief Complaint: Fall Stated Complaint: fall left elbow and knee pain dizzy Time Seen by Provider: 12/18/23 14:48 Source: patient and EMS Limitations: no limitations History of Present Illness HPI Narrative: 83-year-old female past medical history chronic pain syndrome on chronic buprenorphine patch, cervical & thoracic spondylosis, diffuse idiopathic skeletal hyperostosis, HTN who stated she was on blood thinners but non found in her medication list. Who presents to the ER left-sided rib pain after a fall she states she found his bushes has some scratches to her left arm as well she thinks she also hit her head but denies loss of consciousness denies fevers chills cough states she was in normal state of health prior to the fall Related Data Home Medications ?Medication ?Instructions ?Recorded ?Confirmed allopurinol 100 mg tablet 200 mg PO DAILY 07/13/20 04/20/21 atorvastatin 40 mg tablet 40 mg PO DAILY 07/13/20 04/20/21 furosemide 20 mg tablet 20 mg PO DAILY 07/13/20 04/20/21 labetalol 100 mg tablet mg PO 07/13/20 04/20/21 losartan 100 mg tablet 100 mg PO DAILY 07/13/20 04/20/21 meclizine 25 mg tablet 25 mg PO BID 07/13/20 04/20/21 nifedipine 30 mg tablet,extended 30 mg PO DAILY 07/13/20 04/20/21 release 24 hr topiramate 25 mg tablet 25 mg PO TID 07/13/20 04/20/21 Previous Rx's ?Medication ?Instructions ?Recorded buprenorphine 15 mcg/hour weekly 1 patch transdermal Q7D 28 days #4 03/23/21 transdermal patch (Butrans) ea duloxetine 30 mg capsule,delayed 30 mg PO BID 30 days #60 caps 04/20/21 release hydrocodone 5 mg-acetaminophen 325 1 tab PO BEDTIME PRN pain 30 days 05/19/21 mg tablet #30 tabs cyclobenzaprine 5 mg tablet 5 mg PO TID PRN muscle spasm #10 03/25/22 tabs lidocaine 5 % topical patch 1 patch topical DAILY #15 ea 03/25/22 cefuroxime axetil 500 mg tablet 500 mg PO BID #13 tabs 05/16/23 glucagon HCl 1 mg solution for 1 mg subcut Q20M PRN hypoglycemia 05/16/23 injection (Glucagon (HCl) #1 ea Emergency Kit) Allergies Allergy/AdvReac Type Severity Reaction Status Date / Time capsaicin [From DICLOPAK] Allergy Unknown RASH Verified 12/18/23 14:13 diclofenac [From DICLOPAK] Allergy Unknown RASH Verified 12/18/23 14:13 tolmetin [From Tolectin] Allergy swelling,ra Verified 12/18/23 14:13 [facility] Past Medical History Medical History DISH (diffuse idiopathic skeletal hyperostosis) Thoracic spondylosis Cervical spondylosis Chronic pain syndrome Disc degeneration, lumbar Spondylosis of lumbosacral joint without myelopathy Social History Social History Alcohol intake: current Alcohol intake frequency: does not drink Patient Tobacco Use Status: Never used Tobacco Smoked in Last 30 Days: No Use of substances other than those prescribed or required for medical reasons: No Advance Directives: Yes Advance Directives on File: Yes Advance Directives Date on File: 05/14/23 Do you have a plan to hurt others: No Plan Physical Exam 2 Vital Signs: Vital Signs: Last Vital Signs Temp 97.8 F 12/18/23 18:14 Pulse 69 12/18/23 18:23 Resp 24 H 12/18/23 18:23 BP 182/71 H 12/18/23 18:23 Pulse Ox 95 12/18/23 18:23 O2 Del Method Room Air 12/18/23 18:23 BMI result Body Mass Index 28.3 Course Reevaluation(s) Reevaluation #1: 1904 labs are all okay CTs are negative there is no acute fracture of the chest and no injury to the head or neck. I do think patient is safe home Medications Administered Discontinued Medications Generic Name Dose Route Start Last Admin Trade Name Freq PRN Reason Stop Dose Admin Acetaminophen 650 mg 12/18/23 16:22 12/18/23 17:06 Acetaminophen 325 Mg Tablet PO 12/18/23 16:23 650 mg ONCE ONE Administration Diphtheria/Tetanus/Acell Pertussis 0.5 ml 12/18/23 17:39 12/18/23 18:20 Diphth,Pertus(Acell),Tet Adult 0.5 Ml Syringe IM 12/18/23 17:40 0.5 ml .ONCE ONE Administration Sodium Chloride 1,000 mls @ 999 mls/hr 12/18/23 16:30 12/18/23 17:06 Ns IV 12/18/23 17:30 999 mls/hr .Q1H1M SUMMER Administration Ketorolac Tromethamine 15 mg 12/18/23 16:22 12/18/23 17:06 Ketorolac Tromethamine 15 Mg/Ml Vial IVPUSH 12/18/23 16:23 15 mg ONCE ONE Administration Labetalol HCl 5 mg 12/18/23 18:28 12/18/23 18:38 Labetalol Hcl 100 Mg/20 Ml Vial IVPUSH 12/18/23 18:29 5 mg ONCE ONE Administration Labetalol HCl 100 mg 12/18/23 18:29 12/18/23 18:38 Labetalol Hcl 100 Mg Tablet PO 12/18/23 18:30 100 mg ONCE ONE Administration Protocol Medical Decision Making Medical Decision Making MDM Narrative: I will update her tetanus give patient some pain medications incentive spirometer scanner head neck chest Differential Diagnosis Differential Diagnoses: The differential diagnosis associated with the presentation includes Fall rib fracture intracranial hemorrhage abrasions Admission/Observation Consideration of admission/observation: Escalation of care including admission/observation considered Consult Healthcare Provider Management of the patient was discussed with: Hospitalist Lab Data MDM Lab Attestation statement: I reviewed the patient's lab results. 12/18/23 14:35 12/18/23 14:35 Labs: Lab Results 12/18/23 12/18/23 12/18/23 Range/Units 14:35 14:44 18:30 WBC 9.1 (4.8-10.8) X10*3/uL RBC 4.53 (4.20-5.50) X10*6/uL Hgb 13.4 (12.0-16.0) g/dl Hct 39.6 (37.0-47.0) % MCV 87.4 (80.0-98.0) fL MCH 29.6 (27.0-33.0) pg MCHC 33.8 (31.0-35.0) g/dl RDW 12.4 (11.0-16.0) % Plt Count 300 (160-400) X10*3/uL MPV 9.9 (9.4-12.3) fL Immature Gran % (Auto) 0.7 H (0.0-0.4) % Neut % (Auto) 64.6 (45-73) % Lymph % (Auto) 24.1 (20-40) % [place] % (Auto) 7.7 (2-11) % Eos % (Auto) 2.2 (0-4) % Baso % (Auto) 0.7 (0-2) % Lymph # (Auto) 2.2 (1.2-4.9) X10*3/uL [place] # (Auto) 0.7 (0.1-1.2) X10*3/uL Eos # (Auto) 0.2 (0.0-0.4) X10*3/uL Baso # (Auto) 0.1 (0.0-0.2) X10*3/uL Abs Immat Gran (auto) 0.06 H (0.00-0.03) X10*3/uL Absolute Neuts (auto) 5.9 (2.0-8.3) x10*3/uL Absolute Nucleated RBC 0.000 (0.0-0.012) X10*3/uL Nucleated RBC % (auto) 0.0 (0.0-0.2) /100WBC Sodium 140 (135-145) mmol/L Potassium 4.4 (3.3-5.1) mmol/L Chloride 107 (96-108) mmol/L Carbon Dioxide 20 L (22-29) mmol/L Anion Gap 17 (12-20) BUN 22 H (9-16) mg/dL Creatinine 1.29 (0.5-1.4) mg/dL Estim Creat Clear Calc 30.9 Estimated GFR 40 POC Glucose 247 H 205 H (60-115) mg/dL Random Glucose 264 H (60-115) mg/dL Lactic Acid 2.0 (0.5-2.0) mmol/L Calcium 9.5 (8.4-10.2) mg/dL Magnesium 2.0 (1.6-2.6) mg/dL Total Bilirubin 0.5 (0.0-1.0) mg/dL AST 24 (5-31) U/L ALT 8 (0-31) U/L Alkaline Phosphatase 74 (39-117) U/L Total Creatine Kinase 13 L (26-140) U/L Troponin I High Sens 9.0 (<3.5-17.0) ng/L Total Protein 6.8 (6.5-8.0) g/dL Albumin 3.7 (3.5-5.0) g/dL Independent Interpretation I performed an independent interpretation of an: EKG and CT Scan Radiology Impression Discussion of test interpretation with radiology: I have reviewed the radiologist's reading. Independent Historian Clinical information obtained from an independent historian. History obtained from or confirmed by: EMS External Record Review External record reviewed: Inpatient record and Office record Discharge Plan Discharge Clinical Impression: Fall, Contusion of rib, Back strain, Head injury Patient Disposition: Home, Self-Care Instructions: Back Pain (ED), Rib Contusion (ED), Fall Prevention (ED), Head Injury (ED) Additional Instructions: You were seen today after a fall. You had CT and labs done which were all normal. Please call top follow up with her doctor if you have any other concerns please return to emergency department Prescriptions: No Action hydrocodone-acetaminophen 5-325 mg tablet 1 tab PO BEDTIME PRN (Reason: pain) 30 Days Qty: 30 0RF cyclobenzaprine 5 mg tablet 5 mg PO TID PRN (Reason: muscle spasm) Qty: 10 0RF lidocaine 5 % adhesive patch,medicated 1 patch topical DAILY Qty: 15 0RF Rx Instructions: leave on most painful area for up to 12 hrs cefuroxime axetil 500 mg tablet 500 mg PO BID Qty: 13 0RF glucagon HCl [Glucagon (HCl) Emergency Kit] 1 mg recon soln 1 mg subcut Q20M PRN (Reason: hypoglycemia) Qty: 1 0RF Rx Instructions: until target blood sugar attained. Only use if unable to eat or drink atorvastatin 40 mg tablet 40 mg PO DAILY allopurinol 100 mg tablet 200 mg PO DAILY losartan 100 mg tablet 100 mg PO DAILY nifedipine 30 mg tablet extended release 24hr 30 mg PO DAILY furosemide 20 mg tablet 20 mg PO DAILY labetalol 100 mg tablet PO topiramate 25 mg tablet 25 mg PO TID meclizine 25 mg tablet 25 mg PO BID buprenorphine [Butrans] 15 mcg/hour patch weekly 1 patch transdermal Q7D 28 Days Qty: 4 1RF Rx Instructions: Pain control duloxetine 30 mg capsule,delayed release(DR/EC) 30 mg PO BID 30 Days Qty: 60 0RF Rx Instructions: SHOULD TAKE 1 CAP/DAY X 7 DAYS THEN 2 CAPS/DAY Print Language: Japanese
--- NOTE | 2023-12-18 14:53 | PC.NURSE ---
Chandni called back, gave plan of care update, will pass message along to Malu.
[2023-12-18 15:07] LABS: Alanine Aminotransferase 8 U/L (0-31); Albumin Level 3.7 g/dL (3.5-5.0); Alkaline Phosphatase 74 U/L (39-117); Anion Gap 17 (12-20); Aspartate Amino Transferase 24 U/L (5-31); Bilirubin Total 0.5 mg/dL (0.0-1.0); Blood Urea Nitrogen 22 mg/dL (9-16); Calcium 9.5 mg/dL (8.4-10.2); Carbon Dioxide 20 mmol/L (22-29); Chloride 107 mmol/L (96-108); Creatinine Clr Calc Pharmacy 30.9; Estimated Glomerular Filt Rate 40; Glucose Random 264 mg/dL (60-115); Potassium 4.4 mmol/L (3.3-5.1); Sodium 140 mmol/L (135-145); Total Protein 6.8 g/dL (6.5-8.0)
[2023-12-18] MEDS: Ketorolac Tromethamine 15 MG/ML VIAL IVPUSH (17:06)
[2023-12-18] MEDS: 0.9 % Sodium Chloride 1,000 ML 999 ML IV (17:06)
[2023-12-18] MEDS: Acetaminophen 325 MG TABLET 650 MG PO (17:06)
--- NOTE | 2023-12-18 17:08 | PC.NURSE ---
Patient self removed C-collar.
[2023-12-18] MEDS: Diphth,Pertus(ACell),Tet Adult 0.5 ML SYRINGE IM (18:20)
[2023-12-18 18:38] LABS: Glucose, Whole Blood 205 mg/dL (60-115)
[2023-12-18] MEDS: Labetalol HCL 100 MG/20 ML VIAL IVPUSH (18:38)
[2023-12-18] MEDS: Labetalol HCL 100 MG TABLET PO (18:38)
--- NOTE | 2023-12-18 19:14 | PC.NURSE ---
Spoke to daughter Anne Marie, cristal Mccullough will come and pick patient up, should be approximately 30 mins.
== END 2023-12-18 20:15 | disposition home or self-care (01) ==
PROVIDERS: Emergency Provider Student in an Organized Health Care Education/Training Program; PCP Internal Medicine
DX: S20.212A Contusion of left front wall of thorax, initial encounter (principal); S39.012A Strain of muscle, fascia and tendon of lower back, initial encounter; S40.812A Abrasion of left upper arm, initial encounter; I10 Essential (primary) hypertension; R42 Dizziness and giddiness; R51.9 Headache, unspecified; M54.2 Cervicalgia; M25.522 Pain in left elbow; R07.89 Other chest pain; I44.7 Left bundle-branch block, unspecified; X58.XXXA Exposure to other specified factors, initial encounter; W01.10XA Fall on same level from slipping, tripping and stumbling with subsequent striking against unspecified object, initial encounter; Y93.01 Activity, walking, marching and hiking; Y92.89 Other specified places as the place of occurrence of the external cause; Y99.8 Other external cause status; Z79.899 Other long term (current) drug therapy; Z79.01 Long term (current) use of anticoagulants; Z23 Encounter for immunization
CPT/HCPCS: 36415; 70450; 71250; 72125; 73080; 80053; 82550; 82947; 83605; 83735; 84484; 85025; 90471; 90715; 93005; 96374; 96375; 99284; 99285; J1885; J1920

== ENCOUNTER → 2023-12-18 14:17 | Outpatient (BNV) | payer MEDICARE, OTHER, SELFPAY | PROVIDERS: Emergency Provider Student in an Organized Health Care Education/Training Program; PCP Internal Medicine; Visit Provider Internal Medicine Cardiovascular Disease | DX: R07.9 Chest pain, unspecified (principal); I44.7 Left bundle-branch block, unspecified; R94.31 Abnormal electrocardiogram [ECG] [EKG] | CPT/HCPCS: 93010 ==

== ENCOUNTER 2024-08-01 05:37 | Outpatient (REF) | payer MEDICARE, OTHER, SELFPAY ==
[2024-08-01 05:40] LABS: MANUAL DIFF FLAG NO
--- OUTSIDE RECORDS SUMMARY | 2024-08-01 05:40 | XMS_ITS | Patient Health Record ---
Author Organization [facility] Address [address] [place] [address] Care Team Providers Care Marine Equipment Engineer Name Role Phone JOSE LUIS DEJESUS Primary Care Provider Susy Bernardo Unavailable [phone] Allergies Allergen (clinical drug ingredient) Drug/Non Drug Allergy documented on EMR Reaction Allergy Type Onset Date Status diclofenac Diclofenac RASH Drug Allergy Activ e Reason For Referral No Information Medications Medication SIG (Take, Route, Frequency, Duration) Notes Start Date End Date Status amLODIPine Besylate 10 MG Orally Active oxyCODONE HCl 5 MG Orally every 6 hrs Active Lidocaine (Anorectal) 5 % as directed Ex ternally three times a day for 7 days 10/21/2015 Active Dicloxacillin Sodium 250 MG 1 capsule 1 to 2 hours before meals Orally every 6 hrs for 10 day(s) 10/21/2015 Active Aspir-81 Active Losartan Potassium 100 MG Orally Active Social History Tobacco Use: Social History Observation Description Date Details (start date - stop date) Former Smoker NA - NA Tobacco Use/Smoking Question Answer Notes Are you a former smoker Problems Problem Type SNOMED Code ICD Code Onset Dates Problem Status W/U Status Risk Notes Problem Postmenopausal atrophic vaginitis (45497971) Postmenopausal atrophic vaginitis (N95.2) Active confirmed Problem Essential hypertension (84630058) Essential (primary) hypertension (I10) Active confirmed Problem Type II diabetes mellitus without complication (093064749) Type 2 diabetes mellitus without complications (E11.9) Active confirmed Plan Of Treatment No Information Insurance Providers Payer Name Payer Address Payer Phone Subscriber Number Group Number Insured Name Patient Relationship to Insured Coverage Start Date Coverage End Date MEDICARE [address] [facility] [place] [id number] [phone] [id number] MADIE MORRISON Self - patient is the insured /[address] [employer] [address] [place] [address] [id number] CORNELIO MORRISON Spouse - patient is the spouse of the insured Medical (General) History Medical History History ICD Code Essential (primary) hypertension I10 Type 2 diabetes mellitus without complic ations E11.9 osteoarthritis Surgical History Surgery Date(Month/Year) HYSTERECTOMY BSO for heavy menses age 32 CHOLECYTECTOMY APPENDECTOMY BACK SURGERY 2009 HAND SURGERY 2006
--- OUTSIDE RECORDS SUMMARY | 2024-08-01 05:40 | XMS_ITS | Clinical Summary ---
Author Organization [facility] Address [address] [place] [address] Care Team Providers Care Sled Maker Name Role Phone Beau Perez Primary Care Provider [phone] Allergies Active Allergy Reactions Criticality Noted Date Comments Diclofenac 05/15/2019 Lisinopril Other (See Comments) 05/15/2019 Metformin Diarrhea 05/15/2019 Other Nausea Only Medium 07/19/2022 Tolmetin 05/15/2019 Medications Medication Sig Dispensed Refills Start Date End Date Status allopurinol (ZYLOPRIM) 100 MG tablet allopurinol 100 mg tablet 0 Active atorvastatin (LIPITOR) tablet 40 mg atorvastatin 40 mg tablet 0 Active buprenorphine (BUTRANS) 10 MCG/HR PTWK buprenorphine 10 mcg/hour weekly transdermal patch 0 Active Cinnamon 500 MG capsule Cinnamon 500 mg capsule Take 1 capsule twice a day by oral route. 0 Active Coenzyme Q10 (CO Q 10) 10 MG CAPS Co Q-10 100mg BID 0 Active cyclobenzaprine (FLEXERIL) 10 MG tablet cyclobenzaprine 10 mg tablet 0 Active furosemide (LASIX) 20 MG tablet furosemide 20 mg tablet 0 Active insulin detemir (LEVEMIR FLEXPEN) injection 100 units/mL Levemir FlexTouch U-100 Insulin 100 unit/mL (3 mL) subcutaneous pen INJECT 46 UNITS UNDER THE SKIN DAILY 0 Active labetalol (NORMODYNE) 100 MG tablet labetalol 100 mg tablet 0 Active losartan (COZAAR) 100 MG tablet losartan 100 mg tablet 0 Active meclizine (ANTIVERT) 25 MG tablet meclizine 25 mg tablet 0 Active naproxen (NAPROSYN) 500 MG tablet naproxen 500 mg tablet 0 Active NIFEdipine (PROCARDIA XL) 30 MG 24 hr tablet nifedipine ER 30 mg tablet,extended release 24 hr 0 Active nitroglycerin (NITROSTAT) 0.4 MG SL tablet nitroglycerin 0.4 mg sublingual tablet 0 Active topiramate (TOPAMAX) 25 MG tablet topiramate 25 mg tablet 0 Active traMADol (ULTRAM) 50 MG tablet tramadol 50 mg tablet 0 A ctive escitalopram (LEXAPRO) tablet 10 mg escitalopram 10 mg tablet 0 Active omeprazole (PriLOSEC) 20 MG capsule 0 09/28/2019 Active cloNIDine (CATAPRES) tablet 0.1 mg clonidine HCl 0.1 mg tablet 0 Active methocarbamol (ROBAXIN) 750 MG tablet methocarbamol 750 mg tablet Take 1 tablet twice a day by oral route. 0 Active tiZANidine (ZANAFLEX) 4 MG tablet TAKE ONE TABLET BY MOUTH EVERY 6 HOURS FOR 7 DAYS 0 12/03/2019 Active HYDROcodone-aceta minophen (NORCO) 5-325 MG per tablet Take 1 tablet by mouth every 6 (six) hours as needed. for pain 0 07/27/2020 Active fentaNYL (DURAGESIC) 25 MCG/HR fentanyl 25 mcg/hr transdermal patch Apply 1 patch every 72 hours by transdermal route for 30 days. 0 Active aspirin 81 MG EC tablet daily. 0 Active Cholecalciferol 50 MCG (1999 UT) CAPS daily. 0 Active Magnesium Oxide 250 MG TABS magnesium 250 mg (as magnesium oxide) tablet Take 1 tablet twice a day by oral route. 0 Active magnesium oxide (MAG-OX) 400 MG tablet Take 400 mg by mouth. 0 01/31/2018 Act jessica Coenzyme Q10 100 MG capsule Take 100 mg by mouth. 0 01/31/2018 Act jessica tobramycin-dexame thasone (TobraDex) ophthalmic ointment TobraDex 0.3 %-0.1 % eye ointment 0 Active spironolactone (ALDACTONE) tablet 25 mg spironolactone 25 mg tablet TAKE ONE TABLET BY MOUTH EVERY DAY 0 Active LORazepam (ATIVAN) 0.5 MG tablet lorazepam 0.5 mg tablet TAKE ONE TABLET BY MOUTH TWICE A DAY FOR 7 DAYS 0 Active DULoxetine (CYMBALTA) DR capsule 30 mg duloxetine 30 mg capsule,delayed release TAKE ONE CAPSULE BY MOUTH EVERY DAY FOR 7 DAYS, THEN INCREASE TO TAKE ONE CAPSULE BY MOUTH TWICE A DAY 0 Active CareOne Unifine Pentips Plus 32G X 4 MM MISC USE TWICE PER DAY 0 09/06/2021 Active carvedilol (COREG) 12.5 MG tablet carvedilol 12.5 mg tablet TAKE ONE AND ONE-HALF TABLETS BY MOUTH TWICE A DAY 0 Active carvedilol (COREG) 25 MG tablet carvedilol 25 mg tablet TAKE ONE TABLET BY MOUTH TWICE A DAY (REPLACES LABETALOL) 0 Active azithromycin (ZITHROMAX) 250 MG tablet TAKE 2 TABLETS ON FIRST DAY , THEN 1 TABLET DAILY FOR 4 DAYS 0 09/06/2021 Active Buprenorphine HCl (Belbuca) 75 MCG FILM Belbuca [address] ONE FILM BUCCALLY EVERY 12 HOURS FOR PAIN CONTROL (CONTINUE BELBUCA 15 MCG/WEEK UNTIL STARTING BELBUCA 150 MCG) 0 Active amLODIPine (NORVASC) tablet 10 mg TAKE ONE TABLET BY MOUTH EVERY DAY 0 09/06/2021 Active predniSONE (DELTASONE) tablet 10 mg 5 tablets by mouth daily for 2 days then decrease by 1 pill every 2 days until finished 30 tablet 0 12/29/2021 Active Active Problems Problem Noted Date Diagnosed Date Arthritis of knee, 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/12/2020 Arthritis of knee, right 06/14/2019 Family History Medical History Relation Name Comments Diabetes Brother Heart disease Brother Heart disease Father Heart disease Mother Relation Name Status Comments Brother Father Mother Social History Tobacco Use Types Packs/Day Years Used Date Smoking Tobacco: Former Smokeless Tobacco: Never Alcohol Use Standard Drinks/Week Comments Yes 0 (1 standard drink = 0.6 oz pur e alcohol) Sex and Gender Information Value Date Recorded Sex Assigned at Female 06/14/2019 10:28 AM EST Gender Identity Female 06/14/2019 10:28 AM EST Sexual Orientation Not on file Job Start Date Occupation Industry Not on file Not on file Not on file Last Filed Vital Signs Vital Sign Reading Time Taken Comments Blood Pressure - - Pulse - - Temperature - - Respiratory Rate - - Oxygen Saturation - - Inhaled Oxygen Concentration - - Weight 64.4 kg (142 lb) 12/29/2021 2:25 PM EDT Height 154.9 cm (5' 1 ) 12/29/2021 2:25 PM EDT Body Mass Index 26.83 12/29/2021 2:25 PM EDT Plan of Treatment Health Maintenance Due Date Last Done Comments Depression Screening 1953 Preventative Health Evaluation 1959 DTap / Tdap / Td (1 - Tdap) 1960 Shingrix-Zoster Vaccine (1 o f 2) 1991 04/08/2020, 01/18/2020 Fall Risk Assessment 2006 Osteoporosis Screening (DEXA Scan) 2006 RSV Adult > 60+ Yrs or (1 - 1-dose 75+ series) 2016 COVID-19 Vaccine (3 - 2023-2 5 season) 2024 09/21/2020, 08/24/2020 Influenza Vaccine (#1) 2024 0, 02/19/2018 Pneumococcal Vaccine Completed 02/19/2018, 06/05/2015 Hepatitis B Vaccines Aged Out No long er eligible based on patient's age to complete this topic RSV Ped < 20 months Aged Out No longe r eligible based on patient's age to complete this topic Care Teams Sled Maker Relationship Specialty Start Date End Date Beau Perez DO [address] [place] [address] PCP - General Internal Medicine 08/10/18
--- OUTSIDE RECORDS SUMMARY | 2024-08-01 05:40 | XMS_ITS | Data Portability ---
Author Organization [facility] Address [address] [place] [address] Assessment Encounter Date Assessment Date Assessment LastModified by Organization Details LastModified Time 09/25/2023 09/25/2023 [id number] [place] [id number] (CUSHION GUM APPLICATOR) MDM MODERATE MUST MEET 2 OUT OF 3 ELEMENTS: PROBLEMS, DATA OR RISK ELEMENT 1: PROBLEMS ADDRESSED 1 OR MORE CHRONIC ILLNESS WITH EXACERBATION OR 2 OR MORE STABLE CHRONIC ILLNESSES OR 1 UNDIAGNOSED NEW PROBLEM OR 1 ACUTE ILLNESS W/SYMPTOMS OR 1 ACUTE COMPLICATED INJURY ELEMENT 2: DATA MUST MEET 1 OF 3 CATEGORIES CATEGORY 1: REVIEW OF PRIOR EXTERNAL NOTES, REVIEW OF RESULTS, ORDERING OF EACH TEST, ASSESSMENT REQUIRING INDEPENDENT HISTORIAN OR CATEGORY 2: INDEPENDENT INTERPRETATION OF TESTS BY ANOTHER PHYSICIAN OR SPECIALIST OR CATEGORY 3: DISCUSSION OF MGT OR TEST INTERPRETATION W/EXTERNAL PHYSICIAN OR SPECIALIST ELEMENT 3: RISK RISK OF COMPLICATIONS AND/OR MORBIDITY OR MORTALITY OF PATIENT MANAGEMENT PROVIDER MUST THOROUGHLY DOCUMENT EACH ELEMENT THAT IS COVERED Not available 09/25/2023 15:36:28 02/21/2024 02/21/2024 Patient presente d to office today for their Medicare Annual Wellness Visit. Education was provided on healthy nutrition, including a diet rich in fruits and vegetables, minimizing simple carbohydrates, salt, and saturated fats. Encouraged regular cardiovascular exercise such as walking at least 30 minutes daily, 5 times per week. Emphasized preventive health measures and educated pt on fall prevention and community-based lifestyle interventions to help reduce health risks and promote healthy living. [email or web address] Not available 12/29/2023 14:21:29 03/11/2024 03/11/2024 [id number] [place] [id number] (CUSHION GUM APPLICATOR) MDM MODERATE MUST MEET 2 OUT OF 3 ELEMENTS: PROBLEMS, DATA OR RISK ELEMENT 1: PROBLEMS ADDRESSED 1 OR MORE CHRONIC ILLNESS WITH EXACERBATION OR 2 OR MORE STABLE CHRONIC ILLNESSES OR 1 UNDIAGNOSED NEW PROBLEM OR 1 ACUTE ILLNESS W/SYMPTOMS OR 1 ACUTE COMPLICATED INJURY ELEMENT 2: DATA MUST MEET 1 OF 3 CATEGORIES CATEGORY 1: REVIEW OF PRIOR EXTERNAL NOTES, REVIEW OF RESULTS, ORDERING OF EACH TEST, ASSESSMENT REQUIRING INDEPENDENT HISTORIAN OR CATEGORY 2: INDEPENDENT INTERPRETATION OF TESTS BY ANOTHER PHYSICIAN OR SPECIALIST OR CATEGORY 3: DISCUSSION OF MGT OR TEST INTERPRETATION W/EXTERNAL PHYSICIAN OR SPECIALIST ELEMENT 3: RISK RISK OF COMPLICATIONS AND/OR MORBIDITY OR MORTALITY OF PATIENT MANAGEMENT PROVIDER MUST THOROUGHLY DOCUMENT EACH ELEMENT THAT IS COVERED [email or web address] Not available 03/11/2024 11:55:09 Plan of Treatment Reminders Order Date Submit Date Provider Last Modified By Organization Details Last Modified Time Details Appointments None recorded. Lab HbA1c (hemoglobi n A1c), blood 2023 024 [facility] (Centralized Electronic Ordering - All Locations), Patient Can Go To The Location Of Their Choice, [id number] 4 12:33:03 CMP, serum or plasma 2023 [facility], [address] [place] [address], [id number], 4 12:33:58 HbA1c (hemoglobi n A1c), blood 2023 024 [facility], [address] [place] [address], [address], 4 14:34:13 lipid panel, blood 2023 024 [facility], [address] [place] [address], [address], 4 14:34:13 CBC w/ auto diff 2023 024 [facility], [address] [place] [address], [id number], 4 14:34:13 CMP, serum or plasma 2023 024 [facility], [address] [place] [address], [id number], 4 14:34:13 CMP, serum or plasma 2023 024 [facility], [address] [place] [address], [address], 4 12:23:52 pro BNP (pro B-type natriureti c peptide), serum or plasma 2023 024 [facility], [address] [place] [address], [id number], 4 12:23:52 ldh, serum or plasma 2023 024 [facility], [address] [place] [address], [address], 4 12:23:52 C reactive protein, QN, serum or plasma 2023 024 [facility], [address] [place] [address], [address], 4 12:23:52 ESR (erythrocy te sedimentat ion rate), blood 2023 024 [facility], [address] [place] [address], [id number], 4 12:23:52 urinalysis complete, reflex culture 2023 024 [facility], [address] [place] [address], [id number], 4 12:23:52 HbA1c (hemoglobi n A1c), blood 2023 024 [facility], [address] [place] [address], [id number], 4 15:52:[address] [facility]! this nice lady has a hx of coronary ds and has been quietly taking sl ntg for the past several months 3-4 times a week and not telling anybodylsh dee had her amlodipine stopped several months ago due to leg edema and im wondering if that was the reason? jessica started her on imdur 30 and would love for you to see her and do your magic thank you! beau 2023 [email or web address] Goldman MD, [address] [place] [address], [address], 09:13:14 Procedures None recorded. Surgeries None recorded. Imaging None recorded. Medication Orders isosorbide mononitrat e ER 30 mg tablet,ext ended release 24 hr 2023 [facility], [address] [place] [address], [address], 12:03:51 furosemide 40 mg tablet 2023 024 [facility], [address] [place] [address], [address], 21:25:48 amoxicilli n 875 mg tablet 2023 024 [email or web address] [facility], [address] [place] [address], [address], 14:00:15 pregabalin 50 mg capsule 2023 024 [facility], [address] [place] [address], [address], 15:51:02 Patient TargetsNo targets recorded. Patient Instructions Encounter Date Encounter Id Patient Instructions Last Modified By Organization Details Last Modified Time 02/21/2024 [id number] leg and ankle edema: care instructions Not available 02/21/2024 14:32:15 advance care planning: care instructions Not available 02/21/2024 14:32:15 Discussed and explained advance directives such as standard forms to the {{patient caregiv er patient and caregiver*}}. Face to face discussion lasted for a duration of 14 minutes. Not available 02/21/2024 14:24:58 03/11/2024 [id number] angina: care instructions Not available 03/11/2024 12:03:48 learning about type 2 diabetes Not available 03/11/2024 12:03:48 type 2 diabetes: care instructions Not available 03/11/2024 12:03:47 05/20/2024 [id number] pulse oximetry* Not available 05/20/2024 12:32:51 sleep apnea: car e instructions Not available 05/20/2024 12:32:51 learning about type 2 diabetes Not available 05/20/2024 12:32:50 type 2 diabetes: care instructions Not available 05/20/2024 12:32:50 Reason for Referral Cigar Brander Referral for An nancy pectoris hi mena! this nice lady has a hx of coronary ds and has been quietly taking sl ntg for the past several months 3-4 times a week and not telling anybodylshe had her amlodipine stopped several months ago due to leg edema and im wondering if that was the reason? jessica started her on imdur 30 and would love for you to see her and do your magic thank you! beau Referring Physician: Beau Perez, Internal Medicine, Encounter Date: 03/11/2024 Results Created Date Observation Date Name Description Value Unit Range Abnormal Flag Note LastModifiedBy Organization Detail LastModifiedTime 05/20/2005/20/2024 pulse oxime try* Result 98% Not Available [facility] [address], [place], [address], 05/20/2024 08:38:11 12/18/19 24 12/18/2023 XR, elbow No observ ation record ed. [facility] (Medical Records) [address] [place], [address], 12/18/2023 16:04:23 12/18/19 24 12/18/2023 CT, chest , w/o contr ast No observ ation record ed. [email or web address] [facility] (Medical Records) [address] [place], [address], 12/19/2023 08:03:16 12/18/19 24 12/18/2023 CT, cervi anali spine , w/o contr ast No observ ation record ed. [email or web address] [facility] (Medical Records) [address] [place], [address], 12/19/2023 08:03:38 12/18/19 24 12/18/2023 CT, head + brain , w/o contr ast No observ ation record ed. [email or web address] [facility] (Medical Records) [address] [place], [address], 12/19/2023 08:04:28 Result Notes None recorded. 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 Not Available [facility] 3 11:59:34 Type 2 diabetes mellitus 52940561 Active 2017 Not Available [facility] 3 11:59:35 Neuropathy due to diabetes mellitus 761728376 Active 2017 Not Available [facility] 3 11:59:34 Coronary arterioscl erosis 27194051 Active 2017 Not Available [facility] 3 11:59:35 Hyperchole sterolemia 87145356 Active 2017 Not Available [facility] 3 11:59:34 Glaucoma 24280720 Active 2017 Not Available [facility] 3 11:59:34 Osteoarthr itis 386763377 Active 2017 LS Not Available [facility] 3 11:59:34 Benign paroxysmal positional vertigo 790360906 Active 2017 Not Available [facility] 3 11:59:34 Depressive disorder 20295206 Active 2019 Not Available [facility] 3 11:59:34 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 4 12:16:12 Diarrhea 83877188 Active 2023 Beau Perez DO [address] [place] [address], [address], [facility] 4 12:16:50 Diabetic peripheral neuropathy 418490859 Active 2023 Beau Perez DO [address] [place] [address], [address], [facility] 4 12:18:23 Acute otitis media 1362836 Active 2023 ALISON HANCOCK [address] [place] [address], [address], [facility] 4 12:20:32 Edema of lower extremity 168310136 Active 2023 ALISON HANCOCK [address] [place] [address], [address], [facility] 4 12:21:03 Acute otitis media 2095335 Active 2023 ALISON HANCOCK [address] [place] [address], [address], [facility] 4 12:21:43 Tear of skin 422617234 Active 2023 Beau Perez, DO [address] [place], [address], [facility] 4 12:06:46 Acute urinary tract infection 010845792 Active 2024 Beau Perez, DO [address] [place], [address], [facility] 5 15:34:39 Obstructiv e sleep apnea syndrome 04870120 Active 2017 Not Available [facility] 3 11:59:35 Notes:Some problems listed i n Documents: #[id number], #[id number], #[id number], #[id number], #[id number], #[id number] could not be added to this patient's chart. Please review these documents and add these problems to the patient's chart manually as needed. Problem Notes None recorded. Procedures Surgical History None recorded. Imaging Results Imaging Date Name Status LastModified by Organiz ation Details LastModified Time 12/18/2023 XR, elbow completed [facility] (Medical Records) [address] [place], [address], 12/18/2023 16:04:23 12/18/2023 CT, chest, w/o contrast completed [address] (Medical Records) [address] [place], [address], 12/19/2023 08:03:16 12/18/2023 CT, cervical spine, w/o contrast completed [address] (Medical Records) [address] [place], [address], 12/19/2023 08:03:38 12/18/2023 CT, head + brain, w/o contrast completed [address] (Medical Records) [address] [place], [address], 12/19/2023 08:04:28 Procedure Notes None recorded. Medical Equipment None Reported. Allergies Allergen ID Allergen Name Allergen Category Reaction Reaction Severity Criticality Documentation Date Start Date Code Code System Note Provider Name and Address Organization Details Recorded Time 1555 tolmetin sodium medicatio n Not available Not available Not available 11/08/2017 34836 RxNorm anaph ylaxi s Beau Perez, DO [address] [place], [address], [facility] 0 12:27:21 2441 prednison e medicatio n chest pain severe Not available 03/26/20182017 8640 RxNorm Beau Perez, DO [address] [place], [address], [facility] 9 11:16:33 288 diclofena c Not available Not available Not available Not available 08/08/2017 3355 [facility] 8 09:05:32 289 metformin medicatio n diarrhea Not available Not available 08/08/2017 6809 [facility] 8 09:06:18 290 Lipitor medicatio n Not available Not available Not available 08/08/2017 52133 5 RxNorm Beau Perez, DO [address] [place], [address], [facility] 8 11:28:14 291 lisinopri l medicatio n cough Not available Not available 08/08/2017 10238 [facility] 8 09:11:21 6254 Product containin g 3-hydroxy -3-methyl glutaryl- coenzyme A reductase inhibitor (product) medicatio n nausea moderate Not available 06/03/2022 47268 009 SNOMED Beau Perez, DO [address] [place], [address], [facility] 2 10:21:10 Medications Name Sig Start Date Stop Date Status Note LastModified by Organization Details LastModified Time allopurinol 100 mg tabs 11/26 completed Not Available Not Available Not Available furosemide 20 mg tabs 11/26 completed Not Available Not Available Not Available nifedipine er 30 mg tb24 11/26 completed Not Available Not Available Not Available escitalopra m oxalate 10 mg tabs 11/26 completed Not Available Not Available Not Available omeprazole 20 mg cpdr 11/26 completed Not Available Not Available Not Available buprenorphi ne 10 mcg/hr ptwk 11/26 completed Not Available Not Available Not Available levemir flextouch 100 unit/ml sopn 11/26 completed Not Available Not Available Not Available losartan potassium 100 mg tabs 11/26 completed Not Available Not Available Not Available topiramate 25 mg tabs 11/26 completed Not Available Not Available Not Available clonidine hcl 0.1 mg tabs 11/26 completed Not Available Not Available Not Available Prescriptio n - Prior Authorizati on Request 08/17 completed Not Available Not Available Not Available labetalol hydrochlori de 100 mg tabs 11/26 completed Not Available Not Available Not Available atorvastati n calcium 40 mg tabs 11/26 completed Not Available Not Available Not Available nifedipine ER 30 mg tablet,exte nded release 24 hr TAKE ONE TABLET BY MOUTH EVERY DAY 09/29 completed Not Available Not Available Not Available cyclobenzap rine 10 mg tablet TAKE ONE TABLET BY MOUTH THREE TIMES A DAY NEEDED active Not Available Not Available No t Available amoxicillin 500 mg capsule TAKE ONE CAPSULE BY MOUTH EVERY 8 HOURS UNTIL FINISHED 10/22 completed Not Available Not Available Not Available furosemide 40 mg tablet TAKE 1 TABLET EVERY DAY BY ORAL ROUTE active Not Available Not Available No t Available atorvastati n 40 mg tablet TAKE ONE TABLET BY MOUTH EVERY DAY 06/03 completed Not Available Not Available Not Available carvedilol 25 mg tablet TAKE ONE TABLET BY MOUTH TWICE A DAY (REPLACES LABETALOL ) 09/29 completed Not Available Not Available Not Available clonidine HCl 0.1 mg tablet Take 1 tablet twice a day by oral route for 30 days. active Not Available Not Available No t Available carvedilol 6.25 mg tablet TAKE 1 TABLET BY MOUTH TWO TIMES A DAY active Not Available Not Available No t Available prednisone 10 mg tablet TAKE 5 TABLETS BY MOUTH ONCE DAILY FOR 2 DAYS THEN DECREASE BY 1 TABLET EVERY 2 DAYS UNTIL FINISHED 08/31 completed Not Available Not Available Not Available atorvastati n 20 mg tablet 11/08 completed Not Available Not Available Not Available carvedilol 12.5 mg tablet TAKE ONE AND ONE-HALF TABLETS BY MOUTH TWICE A DAY active Not Available Not Available No t Available azithromyci n 250 mg tablet TAKE 2 TABLETS ON FIRST DAY , THEN 1 TABLET DAILY FOR 4 DAYS 09/29 completed Not Available Not Available Not Available nitroglycer in 0.3 mg sublingual tablet 11/08 completed Not Available Not Available Not Available Glucagon Emergency Kit 1 mg solution for injection INJECT 1MG UNDER THE SKIN EVERY 20 MINUTES NEEDED FOR HYPOGLYCE CHAZ UNTIL TARGET BLOOD SUGAR ATTAINED. USE IF UNABLE TO EAT OR DRINK active Not Available Not Available No t Available tizanidine 4 mg tablet Take 1 tablet every 6 hours by oral route as needed for 7 days. 09/29 completed Not Available Not Available Not Available hydrocodone 5 mg-acetamin ophen 325 mg tablet TAKE ONE TABLET BY MOUTH AT BEDTIME FOR 30 DAYS NEEDED FOR PAIN 09/29 completed Not Available Not Available Not Available ondansetron HCl 8 mg tablet Take 1 tablet every 8 hours by oral route as needed for 6 days. 08/17 completed Not Available Not Available Not Available Medrol (Jermain) 4 mg tablets in a dose pack as directed 03/26 completed Not Available Not Available Not Available isosorbide mononitrate ER 30 mg tablet,exte nded release 24 hr TAKE ONE TABLET BY MOUTH EVERY DAY active Not Available Not Available No t Available cyanocobala min (vit B-12) 1,000 mcg tablet Take 1 tablet every day by oral route. active Not Available Not Available No t Available topiramate 25 mg tablet TAKE ONE TABLET BY MOUTH THREE TIMES A DAY 03/11 completed Not Available Not Available Not Available melatonin 3 mg tablet Take 1 tablet every day by oral route at bedtime. 11/26 completed Not Available Not Available Not Available nifedipine ER 30 mg tablet,exte nded release Take 1 tablet every day by oral route. 03/27 completed Not Available Not Available Not Available clopidogrel 75 mg tablet TAKE 1 TABLET BY MOUTH EVERY DAY active Not Available Not Available No t Available allopurinol 100 mg tablet TAKE TWO TABLETS BY MOUTH EVERY DAY 09/29 completed Not Available Not Available Not Available aspirin 81 mg tablet,madison yed release Take 1 tablet every day by oral route. active Not Available Not Available No t Available tramadol 50 mg tablet Take 1 tablet every day by oral route for 10 days. 08/12 completed Not Available Not Available Not Available TobraDex 0.3 %-0.1 % eye ointment 09/24 completed Not Available Not Available Not Available spironolact one 25 mg tablet TAKE ONE TABLET BY MOUTH EVERY DAY active Not Available Not Available No t Available ketorolac 30 mg/mL (1 mL) injection solution Inject 1 mL as needed by intramusc ular route as directed for 1 day. 08/17 completed Not Available Not Available Not Available vancomycin 125 mg capsule TAKE ONE CAPSULE BY MOUTH FOUR TIMES A DAY WITH MEALS FOR 10 DAYS 09/24 completed Not Available Not Available Not Available carvedilol 3.125 mg tablet 11/08 completed Not Available Not Available Not Available ketorolac 10 mg tablet Take 1 tablet every 6 hours by oral route as needed for 3 days. 09/29 completed Not Available Not Available Not Available cefadroxil 500 mg capsule 11/08 completed Not Available Not Available Not Available amoxicillin 875 mg tablet TAKE ONE TABLET BY MOUTH EVERY 12 HOURS FOR 7 DAYS. 02/20 completed Not Available Not Available Not Available prednisolon e acetate 1 % eye drops,suspe nsion INSTILL 1 DROP IN THE LEFT EYE FOUR TIMES A DAY FOR 5 DAYS FOLLOWING LASER PROCEDURE 10/22 completed Not Available Not Available Not Available lorazepam 0.5 mg tablet TAKE ONE TABLET BY MOUTH TWICE A DAY FOR 7 DAYS 09/24 completed Not Available Not Available Not Available methocarbam ol 750 mg tablet 08/17 completed Not Available Not Available Not Available DOK 100 mg capsule Take 1 capsule every day by oral route. active Not Available Not Available No t Available meclizine 25 mg tablet TAKE 1 TABLET BY MOUTH 3 TIMES DAILY NEEDED active Not Available Not Available No t Available baclofen 10 mg tablet Take 1 tablet 3 times a day by oral route as needed for 30 days. 03/27 completed Not Available Not Available Not Available amlodipine 10 mg tablet TAKE ONE TABLET BY MOUTH EVERY DAY 03/11 completed Not Available Not Available Not Available cephalexin 500 mg capsule TAKE ONE CAPSULE BY MOUTH TWICE A DAY FOR 5 DAYS. 08/31 completed Not Available Not Available Not Available naproxen 500 mg tablet,madison yed release Take 1 tablet twice a day by oral route. 08/17 completed Not Available Not Available Not Available nitroglycer in 0.[address] 1 TABLET UNDER THE TONGUE IF NEEDED active Not Available Not Available No t Available omeprazole 20 mg capsule,del ayed release 1 po bid 11/26 completed Not Available Not Available Not Available magnesium 250 mg tablet Take 2 tablets every day by oral route. 07/25 completed Not Available Not Available Not Available furosemide 20 mg tablet TAKE ONE TABLET BY MOUTH EVERY DAY active Not Available Not Available No t Available cefuroxime axetil 500 mg tablet TAKE ONE TABLET BY MOUTH TWICE A DAY 09/24 completed Not Available Not Available Not Available fentanyl 25 mcg/hr transdermal patch Apply 1 patch every 72 hours by transderm al route for 30 days. 08/17 completed Not Available Not Available Not Available labetalol 100 mg tablet TAKE ONE TABLET BY MOUTH THREE TIMES A DAY 09/29 completed Not Available Not Available Not Available colchicine 0.6 mg tablet 11/08 completed Not Available Not Available Not Available cefdinir 300 mg capsule TAKE ONE CAPSULE BY MOUTH TWICE A DAY active Not Available Not Available No t Available losartan 100 mg tablet TAKE ONE TABLET BY MOUTH EVERY DAY active Not Available Not Available No t Available naproxen 500 mg tablet TAKE ONE TABLET BY MOUTH TWICE A DAY 09/29 completed Not Available Not Available Not Available spironolact one 50 mg tablet TAKE ONE TABLET BY MOUTH EVERY DAY 09/24 completed Not Available Not Available Not Available magnesium 250 mg (as magnesium oxide) tablet Take 1 tablet twice a day by oral route. active Not Available Not Available No t Available oxycodone 5 mg tablet Take 1 tablet 3 times a day by oral route as needed for 25 days. 03/30 completed Not Available Not Available Not Available ciclopirox 0.77 % topical cream APPLY ONE APPLICATI ON EXTERNALL Y TWICE A DAY. USE ON AFFECTED AREAS OF FEET 09/24 completed Not Available Not Available Not Available escitalopra m 10 mg tablet Take 1 tablet every day by oral route for 30 days. 11/26 completed Not Available Not Available Not Available cyclobenzap rine 5 mg tablet 5 MG ORALLY 3 TIMES A DAY NEEDED FOR MUSCLE SPASM 06/03 completed Not Available Not Available Not Available rosuvastati n 20 mg tablet TAKE 1 TABLET BY MOUTH EVERY DAY active Not Available Not Available No t Available rosuvastati n 40 mg tablet TAKE 1 TABLET BY MOUTH EVERY DAY FOR 30 DAYS. active Not Available Not Available No t Available topiramate 50 mg tablet 11/08 completed Not Available Not Available Not Available nitrofurant oin monohydrate /macrocryst als 100 mg capsule TAKE 1 CAPSULE EVERY 12 HOURS BY ORAL ROUTE active Not Available Not Available No t Available duloxetine 30 mg capsule,del ayed release TAKE ONE CAPSULE BY MOUTH EVERY DAY FOR 7 DAYS, THEN INCREASE TO TAKE ONE CAPSULE BY MOUTH TWICE A DAY 09/29 completed Not Available Not Available Not Available Cinnamon 500 mg capsule Take 1 capsule twice a day by oral route. active Not Available Not Available No t Available pregabalin 50 mg capsule TAKE ONE CAPSULE BY MOUTH THREE TIMES A DAY active Not Available Not Available No t Available chlorhexidi ne gluconate 0.12 % mouthwash 08/17 completed Not Available Not Available Not Available milk thistle 200 mg bid active Not Available Not Available No t Available Co Q-10 100mg BID active Not Available Not Av ailable Not Available zinc 40mg copper 2mg 1-3 times a day active Not Available Not Available No t Available flaxseed oil 1 capsule once a day 09/24 completed Not Available Not Available Not Available Vitamin D3 2,000 IU daily 10/22 completed Not Available Not Available Not Available Ginkoba 120mg 1 twice per day active Not Available Not Available No t Available berberine-h erbal comb no.18 1200mg cinnamon 300mg once daily active Not Available Not Available No t Available Calcimate Plus 800mg calcium/2 000mg D3/ Magnesium 100mg- takes once a day 11/16 completed Not Available Not Available Not Available Levemir FlexPen 100 unit/mL (3 mL) solution subcutaneou s insulin pen INJECT 58 UNITS UNDER THE SKIN ONCE DAILY 06/10 completed Not Available Not Available Not Available BD Ultra-Fine Short Pen Needle 31 gauge x 5/16 active Not Available Not Available Not Available Lantus Solostar U-100 Insulin 100 unit/mL (3 mL) subcutaneou s pen Inject 58 units every day by subcutane ous route for 30 days. active Not Available Not Available No t Available oxycodone 10 mg tablet 11/08 completed Not Available Not Available Not Available Novofine 32 32 gauge x 1/4 needle USE ONE PEN NEEDLE TWICE A DAY DIRECTED 2018 active Not Available Not Available Not Avai lable Vitamin D3 50 mcg (2,000 unit) tablet Take 1 tablet every day by oral route. 11/16 completed Not Available Not Available Not Available Durezol 0.05 % eye drops 11/16 completed Not Available Not Available Not Available vitamin E (dl, acetate) 180 mg (400 unit) capsule Take 1 capsule every day by oral route. 11/16 completed Not Available Not Available Not Available B12 400mg once a day 11/16 completed Not Available Not Available Not Available gatifloxaci n 0.5 % eye drops 08/17 completed Not Available Not Available Not Available buprenorphi ne 20 mcg/hour weekly transdermal patch APPLY 1 PATCH TRANSDERM ALLY EVERY 7 DAYS FOR PAIN CONTROL 05/21 completed Not Available Not Available Not Available Butrans 5 mcg/hour transdermal patch 07/25 completed Not Available Not Available Not Available buprenorphi ne 10 mcg/hour weekly transdermal patch APPLY 1 PATCH TO THE SKIN ONCE WEEKLY 2024 active Not Available Not Available Not Avai lable Vitamin D3 50 mcg (2,000 unit) capsule Take 1 capsule every day by oral route. active Not Available Not Available No t Available OneTouch Verio test strips TEST 3 TIMES DAILY active Not Available Not Available No t Available lidocaine 5 % topical ointment 11/08 completed Not Available Not Available Not Available Ilevro 0.3 % eye drops,suspe nsion 11/16 completed Not Available Not Available Not Available buprenorphi ne 15 mcg/hour weekly transdermal patch APPLY 1 PATCH TRANDERMA LLY EVERY 7 DAYS FOR PAIN CONTROL 05/21 completed Not Available Not Available Not Available Unifine Pentips Plus 32 gauge x 32 needle USE TO TWICE DAILY active Not Available Not Available No t Available Farxiga 10 mg tablet TAKE 1 TABLET BY MOUTH EVERY DAY FOR 30 DAYS. active Not Available Not Available No t Available Entresto 24 mg-26 mg tablet TAKE ONE TABLET BY MOUTH TWICE A DAY 09/24 completed Not Available Not Available Not Available Repatha SureClick 140 mg/mL subcutaneou s pen injector Inject every 2 weeks by subcutane ous route. 02/20 completed Not Available Not Available Not Available Belbuca [address] ONE FILM BUCCALLY EVERY 12 HOURS FOR PAIN CONTROL (CONTINUE BELBUCA 15 MCG/WEEK UNTIL STARTING BELBUCA 150 MCG) 09/29 completed Not Available Not Available Not Available Narcan 4 mg/actuatio n nasal spray 11/08 completed Not Available Not Available Not Available OneTouch Verio Flex Meter USE DAILY TO MONITOR BLOOD GLUCOSE active Not Available Not Available No t Available Fish Oil 1,000 mg (120 mg-180 mg) capsule Take 1 capsule every day by oral route. 11/26 completed Not Available Not Available Not Available Shingrix (PF) 50 mcg/0.5 mL intramuscul ar suspension, kit 08/17 completed Not Available Not Available Not Available magnesium 400 mg (as magnesium oxide) tablet Take 1 tablet every day by oral route. 11/16 completed Not Available Not Available Not Available OneTouch Delica Plus Lancet 33 gauge TEST BLOOD GLUCOSE TWICE DAILY. active Not Available Not Available No t Available FreeStyle John 2 Sensor kit active Not Available Not Available N ot Available FreeStyle John 2 [place] USE DAILY TO MONITOR BLOOD GLUCOSE active Not Available Not Available No t Available Flowflex COVID-19 Antigen Home Test kit FOLLOW PACKAGE [employer] ONS 08/31 completed Not Available Not Available Not Available Vitals Date Recorded Body height Body mass index (BMI) Body weight Heart rate Oxygen saturation Oxygen saturation in Arterial blood by Pulse oximetry Systolic blood pressure Diastolic blood pressure Provider Name and Address Organization Details Last Updated DateTime 4 155.58 cm 26.3 kg/m2 66179.7 3 g 59 /min 99 % 99 % 132 mm[Hg] 88 mm[Hg] Bekah [facility] 4 15:27:32 Date Recorded Body height Body mass index (BMI) Body weight Heart rate Oxygen saturation Oxygen saturation in Arterial blood by Pulse oximetry Systolic blood pressure Diastolic blood pressure Provider Name and Address Organization Details Last Updated DateTime 4 155.58 cm 27.4 kg/m2 55831.8 5 g 70 /min 98 % 98 % 130 mm[Hg] 72 mm[Hg] Bekah Guzman [facility] 4 12:06:41 Date Recorded Body height Body mass index (BMI) Body weight Heart rate Oxygen saturation Oxygen saturation in Arterial blood by Pulse oximetry Systolic blood pressure Diastolic blood pressure Provider Name and Address Organization Details Last Updated DateTime 4 155.58 cm 28.6 kg/m2 96541.9 1 g 66 /min 98 % 98 % 132 mm[Hg] 78 mm[Hg] Bekah Guzman [facility] 4 14:07:36 Date Recorded Body height Heart rate Oxygen saturation Oxygen saturation in Arterial blood by Pulse oximetry Systolic blood pressure Diastolic blood pressure Provider Name and Address Organization Details Last Updated DateTime 4 155.58 cm 60 /min 99 % 99 % 138 mm[Hg] 68 mm[Hg] Catalina Schuler [facility] 4 11:35:24 Date Recorded Body height Body mass index (BMI) Body weight Heart rate Oxygen saturation Oxygen saturation in Arterial blood by Pulse oximetry Systolic blood pressure Diastolic blood pressure Provider Name and Address Organization Details Last Updated DateTime 4 156.21 cm 28.6 kg/m2 65889.2 2 g 69 /min 98 % 98 % 128 mm[Hg] 82 mm[Hg] Nikita Granger [facility] 4 11:47:41 Social History Question Answer Notes LastModified by Organizat ion Details LastModified Time Tobacco Smoking Status Former Smoker Not Available [facility]07[facility] 03:36:24 What Is Your Occupation? Retired [id number] Information not available 04/07/2020 What Was The Date Of Your Most Recent Tobacco Screening? 05/20/2024 [email or web address] Information not available 05/20/2024 Do You Or Have You Ever Used Any Other Forms Of Tobacco Or Nicotine? No Information not available 08/31/2022 Sex: Unknown Functional Status None recorded. Mental Status None recorded. Family History Nothing Reported. Medical History No medical history recorded. Gynecological HistoryNo gynecological history recorded. Obstetrics History GPAL:G 0 P 0 0 0 0 Immunizations Vaccine Type Date Status Note Provider Nam e and Address Organization Details Recorded Time COVID-19, mRNA, LNP-S, PF, 100 mcg/0.5mL dose or 50 mcg/0.25mL dose [address] [facility] 05/23/2023 11:59:35 COVID-19, mRNA, LNP-S, PF, 100 mcg/0.5mL dose or 50 mcg/0.25mL dose [address] [facility] 05/23/2023 11:59:35 pneumococcal polysaccharide PPV23 [address] [facility] 05/23/2023 11:59:35 Influenza, split virus, quadrivalent, preservative [address] [facility] 05/23/2023 11:59:35 Influenza, split virus, quadrivalent, preservative [address] [facility] 05/23/2023 11:59:35 zoster, unspecified formulation [address] [facility] 05/23/2023 11:59:35 zoster, unspecified formulation [address] [facility] 05/23/2023 11:59:35 Pneumococcal conjugate PCV [address] [facility] 05/23/2023 11:59:35 Past Encounters Encounter ID Performer Location Encounter Start Date Encounter Closed Date Diagnosis/Indication Diagnosis SNOMED-CT Code Diagnosis ICD10 Code Diagnosis Note [id number] DO [facility] [address] [facility], [place] [address] 11/08/2017 10:49:19 11/08/2017 12:08:16 Type 2 diabetes mellitus 67546120 E11.9 needs to get a1c hakan Essential hypertension 72433639 I10 stable now on meds Obstructiv e sleep apnea syndrome 57216071 G47.33 needs to be using cpap told pt she can try nasal pillows [id number] Nely Palomares NP, S [facility] [address] [facility], [place] [address] 02/02/2018 14:44:51 02/02/2018 16:59:58 Pre-surgery evaluation 345559712 Z01.818 Type 2 oscar betes mellitus 68504872 E11.42 A1C 8.6 Essential hypertension 31115153 I10 stable [id number] Beau Perez DO [facility] [address] [facility],[place] [address] 02/19/2018 10:44:22 02/19/2018 11:20:04 Type 2 diabetes mellitus 88873144 E11.9 still not dropping sugars as a1c is still 8.6 on spec diet for diabetics and has lost wgt asked pt to chk sugars she is reluctant to dosent like to but grudgingly agreed to chk states will bring in results but in meantime will increase levemir to 26am and 32pm Essential hypertension 68931485 I10 stable now on meds Screening for osteoporosis 293467190 Z13.820 given order for test Stable angina 714561162 I20.8 currently symptom free of any angina type sx Benign par oxysmal positional vertigo 161073348 H81.10 doing well except when sugars are out of control Neuropathy due to diabetes mellitus 655494792 E11.40 some numbness in feet but good foot exam [id number] Nely Palomares NP, S [facility] [address] [facility],[place] [address] 03/20/2018 10:51:05 03/21/2018 13:58:31 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 has at home [id number] Beau Perez [facility] [address] [facility],[place] [address] 03/26/2018 10:51:39 03/26/2018 11:36:15 Type 2 diabetes mellitus 16171607 E11.9 still not dropping sugars as a1c is still 8.6 on spec diet for diabetics and has lost wgt asked pt to chk sugars she is reluctant to dosent like to but grudgingly agreed to chk states will bring in results but in meantime will increase levemir to 26am and 32pm Essential hypertension 57700815 I10 stable now on meds Hypercholesterolemia 136 82708 E78.00 Adult heal th examination 784825889 Z00.01 will need to loolk into why she is so fatigued and nott feeling well she appears quite pale as well will need major lab work to start and will see her back Screening for cardiovascular system disease 475741893 Z13.6 already started on lipitor agian with coq 10 Screening for malignant neoplasm of colon 043670325 Z12.11 wait until better gi willl call Screening for osteoporosis 531427115 Z13.820 given order for test Screening mammography 24 197326 Z12.31 test next monday [id number] Beau Perez [facility] [address] [facility] [address] [address] 04/02/2018 11:10:50 04/02/2018 11:45:39 Degeneration of cervical intervertebral disc 06067901 M50.[address] posada later today and is due for eval long discussion with pt that she is prob addicted to oxycodone given she has been getting from dr posada for over 1 year told her of dangers of this and that it is difficult to come off of pt states she is well aware albino placed on butran patch Type 2 oscar betes mellitus 21748813 E11.9 dropping sugars as a1c is still 7.2 on spec diet for diabetics and has lost wgt is finally doing better lab reviewed extensivel y with pat Essential hypertension 37197834 I10 stable now on meds [id number] Beau Perez [facility] [address] [facility] [address] [address] 07/25/2018 10:39:03 07/25/2018 11:42:55 Nausea and vomiting 57410026 R11.2 will treat with zofran Essential hypertension 26530189 I10 stable now on meds was elevated during her procedure Type 2 oscar betes mellitus 35341060 E11.9 will wait for labwork as pt has been too ill to get lab this past week [id number] Beau Perez [facility] [address] [facility] [address] [address] 08/17/2018 10:48:03 08/17/2018 11:56:29 Pre-surgery evaluation 580921138 Z01.818 Per the revised edition of the ACS preop evaluation s she is considered a low risk for this particular procedure and is thus cleared for cataract surgery. she has been instructed re her daily medication s including changing asa to 81 mg dose and to take 1/2 dose of her Levemir the night prior and morning of her procedure also upon review of her records re allergic reactions, she is NOT allergic to steroids but is in fact intolerant of NSAIDS. so she will be able to take the eye drops ( ILEVRO and DURASOL) without problem. Neuropathy due to diabetes mellitus 196695304 E11.40 some numbness in feet but good foot exam Stable angina 847435791 I20.8 currently symptom free of any angina type sx Type 2 oscar betes mellitus 94741831 E11.9 stable and without issue Levemir instructon s provided. Essential hypertension 56411614 I10 stable now on meds [id number] September ALYSSA Cuevas [facility] [address] [facility],[place] [address] 11/16/2018 08:56:22 11/16/2018 09:59:22 Atypical chest pain 359483262 R07.89 refusing work up AMA stating that she had work up in 2017 that was normal and thinks this is just allergies. just wants a recommenda tion for allergies have advised her to f/u with cardio on these sx and we will send encounter note to cardio as well she was also advised to call 911 or go to ER if her sx worsen Dyspnea on exertion 6084 5006 R06.09 refusing work upAMAstati ng that she had work up in 2017 that was normal and thinks this is just allergies. just wants a recommenda tion for allergies Lightheadedness 75986734 8 R42 refusing work upAMAstati ng that she had work up in 2017 that was normal and thinks this is just allergies. just wants a recommenda tion for allergies Environmental allergy 42 4619841 T78.49XA recommend otc zyrtec and or flonase Benign par oxysmal positional vertigo 816761493 H81.13 [id number] Beau Perez DO [facility] [address] [facility],[place] [address] 03/27/2019 13:52:17 03/27/2019 15:20:27 Type 2 diabetes mellitus 78635045 E11.9 stable and without issue lFoyd herman s provided. a1c is 7.2 Essential hypertension 43587260 I10 stable now on meds Idiopathic achalasia of esophagus 860941547 K22.0 will be ordering tests [id number] Beau Perez [facility] [address] [facility],[place] [address] 08/13/2019 14:06:58 08/13/2019 15:02:06 Essential hypertension 16977829 I10 stable now on meds Type 2 oscar betes mellitus 05342513 E11.9 not stable and she hasnt been checking a1c is needed and we will order now Stable angina 393002327 I20.8 currently symptom free of any angina type sx Depressive disorder 3548 9007 F32.9 [id number] Beau Perez [facility] [address] [facility],[place] [address] 09/04/2019 09:09:37 09/04/2019 11:34:58 Essential hypertension 16274227 I10 stable now on meds bp at home has good she will check occ at home Neuropathy due to diabetes mellitus 609585282 E11.40 some numbness in feet but good foot exam Type 2 oscar betes mellitus 30420312 E11.9 not stable and she hasnt been checking a1c is needed and we will order now Stable angina 414438979 I20.8 currently symptom free of any angina type sx Depressive disorder 3548 9007 F32.9 will wean off the citalopram as she is doing great right now will cut in half for week and then stop if ok [id number] Beau Perez [facility] [address] [facility] [address] [address] 11/27/2019 12:06:20 11/27/2019 12:31:27 Essential hypertension 30976267 I10 stable now on meds bp at home has good she will check occ at home Type 2 oscar betes mellitus 77555561 E11.9 not stable and she hasnt been checking a1c is needed and we will order now Stable angina 311743595 I20.8 currently symptom free of any angina type sx Osteoarthritis 358944384 M19.90 has known djd of LS spine and has radiculopa thy down the left leg this is her weak spot where the pain becomes unbearable [id number] Beau Perez DO [facility] [address] [facility],[place] [address] 06/12/2020 08:29:43 06/12/2020 13:59:04 Coronary arteriosclerosis 60920981 I25.10 has been asymptomat ic Hypercholesterolemia 136 71957 E78.00 will be needing to get this rechk in next lab Neuropathy due to diabetes mellitus 098614054 E11.40 persistant numbness in both feet has known foot deformitie s and will need to renew her diabetic shoes as her current pair are falling apart Type 2 oscar betes mellitus 18449675 E11.9 not stable and she hasnt been checking a1c is now elevated at 8.0 was 7.9 last time in august relates Osteoarthritis 153639702 M19.90 has known djd of LS spine and has radiculopa thy down the right leg this is her weak spot where the pain becomes unbearable Degenerati on of lumbar intervertebral disc 42628660 M51.36 given profound deteriorat ion and inoperable condition per the neurosurge on Dr Izquierdo Renewal of prescription 855337998 Z76.0 [id number] Beau Perez DO [facility] [address] [facility],[place] [address] 08/17/2020 11:39:31 08/17/2020 13:24:29 Type 2 diabetes mellitus 32842239 E11.9 not stable and she hasnt been checking a1c is now 9.3 was at 8.0 was 7.9 last time in august we are going to try to get her in to a endocrinol ogist as we are in need of getting her to mnonitor her sugars better and feel a freestyle john would be of benefit also we need some help with the insulin doses as she is bery reluctant to start using short acting insulin and doesnt want to take other DM pills Essential hypertension 70212348 I10 stable now on meds bp at home has good she will check occ at home Benign par oxysmal positional vertigo 239965190 H81.10 doing well except when sugars are out of control [id number] Beau Perez [facility] [address] [facility],[place] [address] 12/25/2020 09:07:53 12/25/2020 09:45:03 Type 2 diabetes mellitus 58426730 E11.[address] Oviedo had a a1c of 7.8 pm 11-25-20 she was at 8.0 was 7.9 last time in august we are going to try to get her in to a endocrinol ogist as we are in need of getting her to monitor her sugars better and feel a freestyle john would be of benefit also we need some help with the insulin doses as she is bery reluctant to start using short acting insulin and doesnt want to take other DM pillshas had a full eval for DM foot exam Essential hypertension 73425770 I10 stable now on meds bp at home has good she will check occ at homehad further lab at endocrine and LFt etc were all WNL Stable angina 565049475 I20.8 currently symptom free of any angina type sxno cp no sob unless she is exerting herself [id number] Beau Perez [facility] [address] [facility],[place] [address] 05/24/2021 08:21:12 05/24/2021 12:10:34 Coronary arteriosclerosis 41700897 I25.10 has been asymptomat ic Essential hypertension 77961108 I10 stable now on meds bp at home has good she will check occ at homehad further lab at endocrine and LFt etc were all WNL Neuropathy due to diabetes mellitus 280202280 E11.40 persistant numbness in both feet has known foot deformitie s and will need to renew her diabetic shoes as her current pair are falling apart Type 2 oscar betes mellitus 85273219 E11.[address] Oviedo had a a1c of 6.3!!!!!! on berberine 7.8 pm 11-25-20 she was at 8.0 was 7.9 last time in august we are going to try to get her in to a endocrinol ogist as we are in need of getting her to monitor her sugars better and feel a freestyle john would be of benefit also we need some help with the insulin doses as she is bery reluctant to start using short acting insulin and doesnt want to take other DM pillshas had a full eval for DM foot exam Degenerati on of lumbar intervertebral disc 00604009 M51.36 will be seeing about going to [facility] dr crespo for pain management given profound deteriorat ion and inoperable condition per the neurosurge on Dr Izquierdo we willprovid e a month dose of the buprenorph ine [id number] Beau Perez DO [facility] [address] [facility] [facility] [place] [address] 06/18/2021 10:03:23 06/23/2021 15:26:39 Neuropathy due to diabetes mellitus 247446257 E11.40 persistant numbness in both feet has known foot deformitie s and will need to renew her diabetic shoes as her current pair are falling apart Stable angina 800444908 I20.8 currently symptom free of any angina type sxno cp no sob unless she is exerting herself Type 2 oscar betes mellitus 19222680 E11.[address] Oviedo had a a1c of 6.3!!!!!! on berberine 7.8 pm 11-25-20 she was at 8.0 was 7.9 last time in august we are going to try to get her in to a endocrinol ogist as we are in need of getting her to monitor her sugars better and feel a freestyle john would be of benefit also we need some help with the insulin doses as she is bery reluctant to start using short acting insulin and doesnt want to take other DM pillshas had a full eval for DM foot exam Anxiety disorder 2243006 06 F41.9 [id number] DO [facility] [address] [facility] [address] [facility] [place] [address] 09/29/2021 13:25:35 09/29/2021 13:57:58 Type 2 diabetes mellitus 98425762 E11.9 we will have her get a1c today is done with Dr Oviedo had a a1c of 6.3! !! on berberine 7.8 pm 11-25-20 she was at 8.0 was 7.9 last time in august we are going to try to get her in to a endocrinol ogist as we are in need of getting her to monitor her sugars better and feel a freestyle john would be of benefit also we need some help with the insulin doses as she is bery reluctant to start using short acting insulin and doesnt want to take other DM pillshas had a full eval for DM foot exam Essential hypertension 08926611 I10 stable now on meds bp at home has good she will check occ at homehad further lab at endocrine and LFt etc were all WNL Active or passive immunization 268440235 Z23 aware she is due for Tdap [id number] DO [facility] [address] [facility],[place] [address] 03/01/2022 13:37:47 03/01/2022 16:21:33 Coronary arteriosclerosis 81401061 I25.10 has been asymptomat ic Essential hypertension 18537069 I10 stable now on meds bp at home has good she will check occ at homehad further lab at endocrine and LFt etc were all WNL Type 2 oscar betes mellitus 15075791 E11.9 we will have her get a1c today is done with Dr Oviedo had a a1c of 6.3! !! on berberine 7.8 pm 11-25-20 she is due for an a1c she was at 8.0 was 7.9 last time in august we are going to try to get her in to a endocrinol ogist as we are in need of getting her to monitor her sugars better and feel a freestyle john would be of benefit also we need some help with the insulin doses as she is very reluctant to start using short acting insulin and doesnt want to take other DM pillshas had a full eval for DM foot exam Stable angina 413237087 I20.8 currently symptom free of any angina type sxno cp no sob unless she is exerting herself Neuropathy due to diabetes mellitus 004222840 E11.40 persistant numbness in both feet has known foot deformitie s and will need to renew her diabetic shoes as her current pair are falling apart [id number] DO [facility] [address] [facility] [place] [address] 06/03/2022 07:45:38 06/03/2022 10:52:16 Essential hypertension 67076769 I10 stable now on meds bp at home has good she will check occ at homehad further lab at endocrine and LFt etc were all WNL Type 2 oscar betes mellitus 35551195 E11.9 an a1c is 7 she was at 7,1 was 7.0last time in august we are going to try to get her in to a endocrinol ogist as we are in need of getting her to monitor her sugars better and feel a freestyle john would be of benefit also we need some help with the insulin doses as she is very reluctant to start using short acting insulin and doesnt want to take other DM pillshas had a full eval for DM foot exam Coronary arteriosclerosis 29392437 I25.10 [place] [id number] Beau Perez [facility] [address] [facility],[place] 7 08/31/2022 15:50:38 09/02/2022 14:46:33 Type 2 diabetes mellitus 54831370 E11.9 an a1c is 7.3 she was at 7,1 was 7.0last time in august using the levemir 58 u dailyhas had a full eval for DM foot exam Essential hypertension 59648563 I10 stable now on meds bp at home has good she will check occ at homehad further lab at endocrine and LFt etc were all WNL Coronary arteriosclerosis 02415594 I25.10 has been asymptomat ic Neuropathy due to diabetes mellitus 977669577 E11.40 persistant numbness in both feet has known foot deformitie s and will need to renew her diabetic shoes as her current pair are falling apart Stable angina 758115792 I20.8 currently symptom free of any angina type sxno cp no sob unless she is exerting herself [id number] Beau Perez [facility] [address] [facility] on [address],[place] [facility] [place] [address] 02/15/2023 13:24:13 02/15/2023 14:13:44 Essential hypertension 12009741 I10 stable now on meds bp at home has good she will check occ at homehad further lab at endocrine and LFt etc were all WNL Hypercholesterolemia 136 10527 E78.00 will be needing to get this rechk in next lab Type 2 oscar betes mellitus 61829983 E11.9 an a1c is 6.9 and doing 7.3 she was at 7,1 was 7.0last time in august using the levemir 58 u daily but in divided doses and we will have her go to once a day at bedtimeha had a full eval for DM foot exam [id number] Beau Perez [facility] [address] [facility],[place] [address] 05/22/2023 13:24:26 05/22/2023 14:23:31 Coronary arteriosclerosis 39973553 I25.10 has been asymptomat ic Hypercholesterolemia 136 53952 E78.00 will be needing to get this rechk in next lab Type 2 oscar betes mellitus 86021815 E11.9 an a1c is 6.9 and doing 7.3 she was at 7,1 was 7.0last time in august using the levemir 58 u daily but in divided doses and we [facility] a full [facility] for DM foot exam Essential hypertension 39657248 I10 stable now on meds bp at home has good she will check occ at homehad further lab at endocrine and LFt etc were all WNL [id number] Beau Perez [facility] [address] [facility] [address], [place] [address] 07/03/2023 10:19:11 07/03/2023 13:51:39 Obstructive sleep apnea syndrome 79351634 G47.33 needs to be using cpap told pt she can try nasal pillows Essential hypertension 40863661 I10 stable now on meds bp at home has good she will check occ at homehad further lab at endocrine and LFt etc were all WNL Hypercholesterolemia 136 16025 E78.00 will be needing to get this rechk in next lab Diabetic p eripheral neuropathy 844505394 E11.40 stable Angina pectoris 98913437 0 I20.89 stable Type 2 oscar betes mellitus 05551586 E11.9 having a great deal of trouble controllin g sugars goinh very high 300s and then bottoming out at 40's very symptomati c we need better monitoring as she is fingerstic erin up to 5 x per day Diarrhea 75788582 R19.7 will need to get c diff screen and follow close as she showed signs of dehydratio n on labshe states will be able to deliver a sample tomorrow to local [facility] [place] as i do believe this is c diffmetron idazole is NOT a good choice for her given >65 and frail, will try fidaxo (but is over $1000 USD or vanco [id number] Beau Perez DO [facility] [address] [facility] on [address],[place] [address] 09/25/2023 15:17:07 09/25/2023 16:42:47 Obstructive sleep apnea syndrome 31914400 G47.33 needs to be using cpap told pt she can try nasal pillows Essential hypertension 26951899 I10 stable now on meds bp at home has good she will check occ at homehad further lab at endocrine and LFt etc were all WNL Hypercholesterolemia 136 81793 E78.00 will be needing to get this rechk in next lab Diabetic p eripheral neuropathy 125573791 E11.40 stable Angina pectoris 34458646 0 I20.89 stable Type 2 oscar betes mellitus 14694195 E11.9 having a great deal of trouble controllin g sugars goinh very high 300s and then bottoming out at 40's very symptomati c we need better monitoring as she is fingerstic erin up to 5 x per day Diarrhea 34142310 R19.7 will need to get c diff screen and follow close as she showed signs of dehydratio n on labshe states will be able to deliver a sample tomorrow to local [facility] [place] as i do believe this is c diffmetron idazole is NOT a good choice for her given >65 and frail, will try fidaxo (but is over $1000 USD or vanco [id number] ALISON HANCOCK [facility] [address] [facility] [address],[place] [address] 10/23/2023 11:57:19 10/23/2023 13:35:35 Depression screening 396217487 Z13.31 negative Acute otitis media 99143 03 H66.92 start on amox for the next 7 days Edema of l ower extremity 021392445 R60.0 will set up with lab workmonito r weightsinc rease lasix to 40 mgset up with lab work [id number] Beau Perez [facility] [address] [facility] [address],[place] [address] 02/21/2024 13:57:53 02/21/2024 14:34:07 Adult health examination 830906064 Z00.01 will need to loolk into why she is so fatigued and not feeling well she appears quite pale as well will need major lab work to start and will see her back Screening for cardiovascular system disease 409137124 Z13.6 already started on lipitor agian with coq 10 Screening for malignant neoplasm of colon 630466242 Z12.11 wait until better gi willl call Screening for osteoporosis 391088083 Z13.820 given order for test Edema of l ower extremity 014822510 R60.0 rusty put support hose back onwill stop the amlodipine increase furosemid on temporary basis to 40mg Essential hypertension 56078464 I10 stable now on meds bp at home has good she will check occ at homehad further lab at endocrine and LFt etc were all WNL Type 2 oscar betes mellitus 83313043 E11.9 having a great deal of trouble controllin g sugars goinh very high 300s and then bottoming out at 40's very symptomati c we need better monitoring as she is fingerstic erin up to 5 x per day [id number] Beau Perez DO [facility] [address] [facility] [address],[place] [address] 03/11/2024 11:05:54 03/11/2024 15:19:13 Essential hypertension 72407731 I10 stable now on meds bp at home has good she will check occ at homehad further lab at endocrine and LFt etc were all WNL Angina pectoris 73016826 0 I20.89 stable Coronary arteriosclerosis 99210897 I25.10 now symptomati c will start imdur and refer to cardiologi st she understand s that if pain not relieved with first dose she takes a second and call 911 daughter present Type 2 oscar betes mellitus 18711647 E11.9 a1c is 10.3 but she had gotten 2 epidurals before and this always drives her sugars highwill rechk Tear of skin 896511730 T 14.8XXA local wound care applied [id number] DO [facility] [address] [facility] [address],[place] [address] 05/20/2024 11:39:04 05/20/2024 13:47:46 Obstructive sleep apnea syndrome 36835291 G47.33 needs to be using cpap told pt she can try nasal pillows Type 2 oscar betes mellitus 10658706 E11.9 a1c is 10.3 but she had gotten 2 epidurals before and this always drives her sugars highwill rechk Health Concerns Section Related Observation LastModified by Organization Detai ls LastModified Time None Recorded Concern Status LastModified by Organization Details LastModified Time None Recorded Advance Directives Directive None Recorded Payers Encounter Date Sequence Insurance Name Policy Number Policy Olsen Covered Member ID Olsen Member ID Guarantor Name 09/25/2023 2 WPS - FOR LIFE (SECONDARY TO MEDICARE) Malu Vini [id number] Malu Y Vini 09/25/2023 1 [place] [employer] Malu Y Vini [id number] Malu Y Vini 10/23/2023 2 WPS - FOR LIFE (SECONDARY TO MEDICARE) Malu Vini [id number] Malu Y Vini 10/23/2023 1 [place] [employer] Malu Y Vini [id number] Malu Y Vini 02/21/2024 2 WPS - FOR LIFE (SECONDARY TO MEDICARE) Malu Vini [id number] Malu Y Vini 02/21/2024 1 [place] [employer] Malu Y Vini [id number] Malu Y Vini 03/11/2024 2 WPS - FOR LIFE (SECONDARY TO MEDICARE) Malu Vini [id number] Malu Martini 03/11/2024 1 [place] [employer] Malu Martini [id number] Malu Martini 05/20/2024 2 WPS - FOR LIFE (SECONDARY TO MEDICARE) Malu Martini [id number] Malu Martini 05/20/2024 1 [place] [employer] Malu Martini [id number] Malu Martini Notes Date Note Type Note Provider Name a nd Address Organization Details Recorded Time 4 text/html here for ayah still having a lot of nerve painstates that she is not getting relief with topiramatehad good eye exam lately but having trouble with her reading etcno cp nossobbowels ok bladder okappetite is oksleep terrible 3-4 hrs then needs to go to her chair Baeu Perez DO [address] [place], [address], [facility] 09/25/2023 15:51:38 4 text/html c/o LE swelling and ear pain the patient is developing LE edema michael, over the last few days, worse during the dayokay in the morningno significant pain, numbness and tingling more than usual denies any new chest pain, sob,the patient weight is up 6 pounds from previous appt in september (09/25/23) notable pitting edema bilaterally, about 3+ both sidesstill on lasix, 20 mg, will have her double it and monitor weights at homeagreed to fu lab work as well to determine if it is related to her heart or kidneys start on amox for the ear infection ALISON HANCOCK [address] [place], [address], [facility] 10/23/2023 12:28:35 4 text/html Medicare Annual Wellness VisitReported bypatient.Diet and Nutrition:healthy diet Fracture Risk:no history of fractures; no recent explained fracture; no sudden unexplained fractures; no previous musculoskeletal injuries Physical Activity:exercises on a regular basis; recent increase in physical activity; good physical condition Depression Risk:never feels sad, empty, or tearful; no loss of interest in activities; no significant changes in weight; no sleep disturbances or insomnia; no agitation; no loss of energy; no feelings of worthlessness or guilt; no thoughts of suicide; no history of depression; no history of mood disorders Orientation:no disorientation to time; no disorientation to date; no disorientation to place Concentration and Memory:no decreased concentrating ability; no memory lapses or loss; does not forget words Speech/Motor difficulties:no speech difficulties; no difficulty expressing formulated concepts; no difficulty with fine manipulative tasks; no difficulty writing/copying; no slowed reaction time; does not knock things over when trying to pick them up Hearing:no loss of hearing Vision:no vision problems Activities of Daily Living:able to bathe with limited or no assistance; able to contol urination and bowels; able to dress with limited or no assistance; able to feed self with limited or no assistance; able to get out of chair or bed with limited or no assistance; able to groom with limited or no assistance; able to toilet with limited or no assistance Instrumental Activities of Daily Living:able to do house work with limited or no assistance; able to grocery shop with limited or no assistance; able to manage medications with limited or no assistance; able to manage money with limited or no assistance; able to prepare meals with limited or no assistance; able to use the phone with limited or no assistance Falls Risk Assessment:no frequent falls while walking; no fall in the past year; no fall since last visit; no dizziness/vertigo Home Safety:no unsafe nomi hazzards; no unsafe stairs; no unsafe gas appliances; working smoke/CO detectors; wears protective head gear for biking/high velocity; use of seatbelts; practicing 'safer sex'; no vision or hearing loss while driving; no fire arms; has hand bars in the bathroom/shower; good lighting in the home has developed worsening edema of legs now leaking sero fluid Beau Perez, DO [address] [facility], [place], [address], [facility] 02/21/2024 14:32:50 4 text/html here for rechk relates that she has been having sscp for the last 4 months she will take a sl ntg and the pain goes away forgot to tell me the last time she was here for appthappens 3-4 times a weeekgets a cold sweat toonote she is now off the amlodipine due to leg swelling but im wondering if this was helping Beau Perez, [address] [place] [address], [address], [facility] 03/11/2024 12:07:07 4 text/html here for eval of uncontrolled dmadmits to diet non compliance and eating chocolate dailyalso forgetting to take her pillslast a1c is 10.4doesnt sleep in bed anymore bc of her neck painalso dm neuropathy not better with Beau Perez, [address] [place] [address], [place], [address], [facility] 05/20/2024 12:38:03 OBGyn Episode No OBEpisode recorded.
--- OUTSIDE RECORDS SUMMARY | 2024-08-01 05:40 | XMS_ITS | Data Portability ---
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 She states she is not interested in surgery. She gets good relief with cortisone injection for which she opted for at today's visit. After verbal consent was obtained for cortisone injection of the left knee joint. The procedure was carried out. Patient tolerated procedure well. Aftercare instructions were discussed in detail. Follow-up visit 3 months time for repeat clinical exam. Should her symptoms not improve or worsen she should contact my office. Patient agrees with the above-noted plan. Indirect care and treatment in conjunction with Dr. Boyd Additional treatment plan discussed with the patient in detail included the following; - Provider focused nonsteroidal anti-inflammatory regimen (discussed were the pros, cons, benefits and risks as well as any black box warnings) in patients over 60 years old they should be very cautious in taking these medications due to potential decreased kidney function and or elevated blood pressure. - Analgesic pain medication for pain suppression (discussed were the pros, cons, benefits and risks as well as any black box warnings) - The use of topical pain relieving medication were discussed - The use of ice to decrease inflammation and pain - The use of assistive ambulatory devices for ambulation and fall prevention - Formal specific guided physical therapy program I reviewed my findings at length with the patient today. ??We discussed the nature and etiology of this problem along with current treatment options. We discussed the expected course and outcomes and what to expect. We also discussed risks and benefits. ?? All of their questions were answered today, and there was exhibited understanding and comprehension of all that was discussed. Time Spent: 10 minutes were spent reviewing previous imaging and charting. ??10 minutes were spent obtaining patient history. ??5 minutes were spent on physical exam. ??5??minutes were spent explaining diagnosis and assessment. Today's documentation was made using voice recognition software. This note may contain grammatical errors secondary to the software. Not available 11/04/2022 08:28:14 11/25/2022 11/25/2022 Pleasant 82-year-old female severe degenerative arthritis of the left hip. I had discussion with the patient regarding management. She wishes to proceed forward and have a first-time surgical consultation with Dr. Boyd for possible future left total hip replacement. In the meantime she can take her current [id number] pain medication for symptomatic relief. She agrees with the above-noted plan I did review her radiographs with her in detail Indirect care and treatment in conjunction with Dr. Boyd Additional treatment plan discussed with the patient in detail included the following; - Provider focused nonsteroidal anti-inflammatory regimen (discussed were the pros, cons, benefits and risks as well as any black box warnings) in patients over 60 years old they should be very cautious in taking these medications due to potential decreased kidney function and or elevated blood pressure. - Analgesic pain medication for pain suppression (discussed were the pros, cons, benefits and risks as well as any black box warnings) - The use of topical pain relieving medication were discussed - The use of ice to decrease inflammation and pain - The use of assistive ambulatory devices for ambulation and fall prevention - Formal specific guided physical therapy program I reviewed my findings at length with the patient today. ??We discussed the nature and etiology of this problem along with current treatment options. We discussed the expected course and outcomes and what to expect. We also discussed risks and benefits. ?? All of their questions were answered today, and there was exhibited understanding and comprehension of all that was discussed. Time Spent: 10 minutes were spent reviewing previous imaging and charting. ??10 minutes were spent obtaining patient history. ??5 minutes were spent on physical exam. ??5??minutes were spent explaining diagnosis and assessment. Today's documentation was made using voice recognition software. This note may contain grammatical errors secondary to the software. Not available 11/28/2022 06:49:34 01/13/2023 01/13/2023 HPI : Thank you for the pleasure of requesting a consultation on this patient. Patient comes in complaining of left hip pain. This patient is experiencing left hip pain, which is moderate in intensity, and has recently worsened. The pain limits some activities of daily living. Pain and restriction of function are moderate at this time. She also has history of lumbar spine issues. She had disc surgery in the past. Pain is primarily in the buttock area. Review of systems is negative for other rapidly progressive neurological disorder, chest pain, shortness of breath, fevers, chills, or any signs of active or persistent local or systemic infection. Physical Exam : Patient is well nourished, well-developed, in no acute distress, with appropriate mood and affect. The patient is oriented to time, place, and person. Respirations are even and unlabored. There is no inguinal adenopathy. Examination of the contralateral hip shows normal range of motion, strength, no tenderness, and intact skin. The affected limb is well-perfused, shows a grossly normal motor and sensory examination. Examination of the left hip shows no skin lesions. Hip motion is mildly reduced. FADIR is positive and ROHITH is negative. Stinchfield test is positive. Leg lengths are approximately equal . Both hips are stable and muscle strength is normal. Pedal pulses are palpable. Radiographs of the left hip from November 2022 demonstrate degenerative joint disease and joint space narrowing which is mild. Assessment/Plan : The patient has left hip arthritis. She also has known lumbar spine issues. I am not quite sure whether her symptoms are coming from her hip arthritis or from possible lumbar spine issues. Her radiographs show moderate degenerative changes. I think it is worth doing a hip injection for both diagnostic and therapeutic purposes. I am going to perform intra-articular corticosteroid injection today. I will have her follow-up with me in 2 months with report of her symptom progression. 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 She states she is not interested in surgery. She gets good relief with cortisone injection for which she opted for at today's visit. After verbal consent was obtained for cortisone injection of the left knee joint. The procedure was carried out. Patient tolerated procedure well. Aftercare instructions were discussed in detail. Follow-up visit 3 months time for repeat clinical exam. Should her symptoms not improve or worsen she should contact my office. Patient agrees with the above-noted plan. Indirect care and treatment in conjunction with Dr. Boyd Additional treatment plan discussed with the patient in detail included the following; - Provider focused nonsteroidal anti-inflammatory regimen (discussed were the pros, cons, benefits and risks as well as any black box warnings) in patients over 60 years old they should be very cautious in taking these medications due to potential decreased kidney function and or elevated blood pressure. - Analgesic pain medication for pain suppression (discussed were the pros, cons, benefits and risks as well as any black box warnings) - The use of topical pain relieving medication were discussed - The use of ice to decrease inflammation and pain - The use of assistive ambulatory devices for ambulation and fall prevention - Formal specific guided physical therapy program I reviewed my findings at length with the patient today. ??We discussed the nature and etiology of this problem along with current treatment options. We discussed the expected course and outcomes and what to expect. We also discussed risks and benefits. ?? All of their questions were answered today, and there was exhibited understanding and comprehension of all that was discussed. Time Spent: 10 minutes were spent reviewing previous imaging and charting. ??10 minutes were spent obtaining patient history. ??5 minutes were spent on physical exam. ??5??minutes were spent explaining diagnosis and assessment. Today's documentation was made using voice recognition software. This note may contain grammatical errors secondary to the software. Not available 02/02/2023 08:40:54 03/10/2023 03/10/2023 HPI: ?Patient comes in complaining of left hip pain. In the past she complained of hip pain that seem to be intra-articular in nature. I performed a corticosteroid injection. This was intra-articular. She states that brought about 1.5 weeks of relief. She is coming today with more lateralized hip pain. She is holding her lateral aspect of her hip. Review of systems is negative for other rapidly progressive neurological disorder, chest pain, shortness of breath, fevers, chills, or any signs of active or persistent local or systemic infection. Physical Exam: Patient is well nourished, well-developed, in no acute distress, with appropriate mood and affect. The patient is oriented to time, place, and person. Respirations are even and unlabored. There is no inguinal adenopathy. Examination of the contralateral hip shows normal range of motion, strength, no tenderness, and intact skin. The affected limb is well-perfused, shows a grossly normal motor and sensory examination. Examination of the hip shows no skin lesions. Hip motion is not significantly reduced today. FADIR is negative and ROHITH is negative. Stinchfield test is negative. Patient is TTP at the greater trochanter. Josh test is positive. Leg lengths are approximately equal. Both hips are stable and muscle strength is normal. Pedal pulses are palpable. Assessment/Plan: The patient has left IT band tendinitis/greater trochanter bursitis. I had seen her in the past for more intra-articular pain, from her hip arthritis, but today she is mostly having IT band pain. An extensive discussion was conducted on the natural history of the disease and the variety of non-surgical options available to the patient including non-steroidal anti-inflammatory medications, physical therapy, maintenance of ideal body weight, and reduction of activity. Plan for left hip IT band area injection today. She will follow-up in 3 months with PA team. Not available 03/10/2023 14:17:00 Plan of Treatment Reminders Order Date Submit Date Provider Last Modified By Organization Details Last Modified Time Details Appointments None recorded. Lab None recorded. Referral None recorded. Procedures None recorded. Surgeries None recorded. Imaging XR, hip, unilateral, 2 or 3 view 2022 023 [facility], [address], [address], [place], [address], 3 15:22:09 XR, knee, 4 or more view 2022 023 [facility], [address], [address], [place], [address], 3 06:25:45 Medication Orders Marcaine (PF) 0.5 % (5 mg/mL) injection solution 2022 023 [email or web address], [address] [place] [address], [id number], 3 14:51:06 lidocaine (PF) 100 mg/5 mL (2 %) injection syringe 2022 023 [email or web address], [address] [place] [address], [id number], 3 14:51:06 Kenalog 40 mg/mL suspension for injection 2022 023 [email or web address], [address] [place] [address], [address], 3 14:51:06 Kenalog 40 mg/mL suspension for injection 2022 023 [facility], [address] [place] [address], [id number], 3 08:43:07 lidocaine (PF) 10 mg/mL (1 %) injection solution 2022 023 [facility], [address] [place] [address], [id number], 3 08:43:07 Kenalog 40 mg/mL suspension for injection 2022 023 [facility], [address] [place] [address], [id number], 3 08:30:16 lidocaine (PF) 10 mg/mL (1 %) injection solution 2022 023 [facility], [address] [place] [address], [id number], 08:30:16 Patient TargetsNo targets recorded. Patient Instructions Encounter Date Encounter Id Patient Instructions Last Modified By Organization Details Last Modified Time 11/02/2022 [id number] You have been provided with a cortisone injection in order to reduce the pain and inflammation that you are experiencing. The injection consists of two medications. Cortisone (an anti-inflammatory that will take 48-72 hours to take effect) and Lidocaine (a numbing agent that will last 2-3 hours). Please note that not everyone will have a lasting response following the injection. PATIENT INSTRUCTIONS Once the Lidocaine wears off, you may have an increase in your pain. I recommend icing the affected area for 20 minutes 3-4 times per day. It is recommended that you refrain from any high level activities using the joint or limb that was injected for approximately 24-48 hours. Normal day-to-day activities are generally not a problem. POSSIBLE SIDE EFFECTS Individuals with dark complexions may experience some skin discoloration locally at the site of the injection. There is the possibility of an increase in discomfort within 48 hours following the injection. This is called a ? flare? . To help minimize the chances of this, please see the post-injection instructions above. There is a less than 1% chance of an infection. If you notice any signs of infection (redness, warmth, drainage, fever greater than 100 degrees) please call our office or contact us through the portal [facility]. Not available 11/04/2022 08:29:25 4 view x-ray lef t knee reveals moderately severe osteoarthritis within all 3 compartments, chondrocalcinosis, subchondral sclerosis, vascular calcification noted on lateral view no acute bony abnormality. Not available 11/04/2022 08:29:53 11/25/2022 [id number] Three-view x-ray AP, left hip, frog-leg view reveal moderately severe degenerative arthritis of the left hip with flattening of the femoral head best visualized on focused left hip view no acute bony abnormality she does have what appears to be a calcification versus heterotopic ossification just superior to the greater trochanter. Not available 11/28/2022 06:50:20 02/01/2023 [id number] You have been provided with a cortisone injection in order to reduce the pain and inflammation that you are experiencing. The injection consists of two medications. Cortisone (an anti-inflammatory that will take 48-72 hours to take effect) and Lidocaine (a numbing agent that will last 2-3 hours). Please note that not everyone will have a lasting response following the injection. PATIENT INSTRUCTIONS Once the Lidocaine wears off, you may have an increase in your pain. I recommend icing the affected area for 20 minutes 3-4 times per day. It is recommended that you refrain from any high level activities using the joint or limb that was injected for approximately 24-48 hours. Normal day-to-day activities are generally not a problem. POSSIBLE SIDE EFFECTS Individuals with dark complexions may experience some skin discoloration locally at the site of the injection. There is the possibility of an increase in discomfort within 48 hours following the injection. This is called a ? flare? . To help minimize the chances of this, please see the post-injection instructions above. There is a less than 1% chance of an infection. If you notice any signs of infection (redness, warmth, drainage, fever greater than 100 degrees) please call our office or contact us through the portal [facility]. Not available 02/02/2023 08:39:37 Reason for Referral None Reported. Problems Name Problem SNOMED Code Status Onset Date Resolution Date Notes Provider Name and Address Organization Details Recorded Time Osteoarthri tis of left hip joint 8345250160419 08 Active 2022 SAPNA LEE PA-C [address] [facility],[address], [place], [address], [place] [facility], P 3 06:50:31 Pain of left hip joint 6904239405947 00 Active 2022 Eugenio Boyd MD [address] [facility],[address], [place], [address], [place] [facility], [facility] 3 14:27:47 Pain of left knee joint 3635206278419 07 Active 2022 SAPNA LEE PA-C [address] [facility],[address], [place], [address], [place] [facility], P 3 08:40:14 Tendinitis of hip 169466698 Active 2022 Eugenio Boyd MD [address], [place], [address], [place] [facility], [facility] 3 14:14:57 Osteoarthri tis of left knee joint 6494656369480 09 Active 2022 SAPNA LEE PA-C [address], [place], [address], [place] [facility], [facility] 3 08:28:19 Problem Notes None recorded. Procedures Surgical History Date Name Laterality Status Provider Name and Address Organization Details Recorded Time 3 MJG GT injection completed Eugenio Boyd MD [address] [facility], [place], [address], [place] [facility], [facility] 03/10/2023 14:17:07 3 Knee Joint/Bursa Asp & Inj completed SAPNA LEE PA-C [address], [place], [address], [place] [facility], P 02/02/2023 08:39:44 3 MJG Hip Injection w/US completed Eugenio Boyd MD [address] [facility], [place], [address], [place] [facility], P 01/13/2023 14:29:44 3 Knee Joint/Bursa Asp & Inj completed SAPNA LEE PA-C [address], [place], [address], [place] [facility], [facility] 11/04/2022 08:27:26 Imaging Results None recorded. Procedure Notes None recorded. Medical Equipment None Reported. Allergies Allergen ID Allergen Name Allergen Category Reaction Reaction Severity Criticality Documentation Date Start Date Code Code System Note Provider Name and Address Organization Details Recorded Time 4656 tolmetin sodium medicatio n Not available Not available Not available 11/02/2022 74439 RxNorm Amirah colin, [place] [facility], P 14:59:48 4657 diclofena c Not available Not available Not available Not available 11/02/2022 3355 RxNorm Amirah Sheehan null, [place] [facility], [facility] 3 14:59:54 Medications Name Sig Start Date Stop Date Status Note LastModified by Organization Details LastModified Time cyclobenzap rine 10 mg tablet TAKE ONE TABLET BY MOUTH THREE TIMES A DAY NEEDED active Not Available Not Available No t Available prednisone 10 mg tablet TAKE 5 TABLETS BY MOUTH ONCE DAILY FOR 2 DAYS THEN DECREASE BY 1 TABLET EVERY 2 DAYS UNTIL FINISHED 11/22 completed Not Available Not Available Not Available carvedilol 12.5 mg tablet TAKE ONE AND ONE-HALF TABLETS BY MOUTH TWICE A DAY active Not Available Not Available No t Available topiramate 25 mg tablet TAKE ONE TABLET BY MOUTH THREE TIMES A DAY active Not Available Not Available No t Available spironolact one 25 mg tablet TAKE ONE TABLET BY MOUTH EVERY DAY active Not Available Not Available No t Available Kenalog 40 mg/mL suspension for injection Take 1 mL by injection route. 2022 active Not Available Not Available Not Avai lable prednisolon e acetate 1 % eye drops,suspe nsion INSTILL 1 DROP IN THE LEFT EYE FOUR TIMES A DAY FOR 5 DAYS FOLLOWING LASER PROCEDURE 11/22 completed Not Available Not Available Not Available meclizine 25 mg tablet TAKE 1 TABLET BY MOUTH 3 TIMES DAILY NEEDED active Not Available Not Available No t Available amlodipine 10 mg tablet TAKE ONE TABLET BY MOUTH EVERY DAY active Not Available Not Available No t Available cephalexin 500 mg capsule TAKE ONE CAPSULE BY MOUTH TWICE A DAY FOR 5 DAYS. 11/22 completed Not Available Not Available Not Available nitroglycer in 0.4 mg sublingual tablet active Not Available Not Available Not Available furosemide 20 mg tablet TAKE ONE TABLET BY MOUTH EVERY DAY active Not Available Not Available No t Available losartan 100 mg tablet TAKE ONE TABLET BY MOUTH AT BEDTIME active Not Available Not Available No t Available spironolact one 50 mg tablet TAKE ONE TABLET BY MOUTH EVERY DAY active Not Available Not Available No t Available cyclobenzap rine 5 mg tablet 5 MG ORALLY 3 TIMES A DAY NEEDED FOR MUSCLE SPASM active Not Available Not Available No t Available rosuvastati n 40 mg tablet TAKE ONE TABLET BY MOUTH EVERY DAY 11/22 completed Not Available Not Available Not Available Marcaine (PF) 0.5 % (5 mg/mL) injection solution Take 4 mL by injection route. 2022 active Not Available Not Available Not Avai lable Levemir FlexPen 100 unit/mL (3 mL) solution subcutaneou s insulin pen INJECT 58 UNITS UNDER THE SKIN ONCE DAILY active Not Available Not Available No t Available lidocaine (PF) 10 mg/mL (1 %) injection solution Take 1 mL by injection route. 2022 active Not Available Not Available Not Avai lable buprenorphi ne 10 mcg/hour weekly transdermal patch APPLY ONE PATCH TO THE SKIN ONCE WEEKLY active Not Available Not Available No t Available lidocaine (PF) 100 mg/5 mL (2 %) injection syringe Take 4 mL by injection route. 2022 active Not Available Not Available Not Avai lable Unifine Pentips Plus 32 gauge x 5/32 needle USE TO TWICE DAILY active Not Available Not Available No t Available Entresto 24 mg-26 mg tablet TAKE ONE TABLET BY MOUTH TWICE A DAY active Not Available Not Available No t Available Repatha SureClick 140 mg/mL subcutaneou s pen injector INJECT 140MG UNDER THE SKIN EVERY 14 DAYS active Not Available Not Available No t Available Flowflex COVID-19 Antigen Home Test kit FOLLOW PACKAGE INSTRUCTI ONS 11/22 completed Not Available Not Available Not Available Vitals Date Recorded Body height Body mass index (BMI) Body weight Provider Name and Address Organization Details Last Updated DateTime 11/02/2022 154.94 cm 27.8 kg/m2 10008.[address] [place] [facility] 11/02/2022 15:00:10 Date Recorded Body height Body mass index (BMI) Body weight Provider Name and Address Organization Details Last Updated DateTime 01/13/2023 154.94 cm 26.1 kg/m2 [address] [place] [facility] 01/13/2023 14:00:19 Date Recorded Body height Body mass index (BMI) Body weight Provider Name and Address Organization Details Last Updated DateTime 03/10/2023 154.94 cm 26.1 kg/m2 [address] [place] [facility] 03/10/2023 13:50:35 Social History Question Answer Notes LastModified by Organizat ion Details LastModified Time Tobacco Smoking Status Former Smoker Amirah Aguila null, [place] [facility] 11/02/2022 15:00:27 When Did You Quit Smoking? 17+yearssinc elastcigaret te Information not available 11/02/2022 Sex: Unknown Functional Status None recorded. Mental Status None recorded. Family History Relationship Description Onset Age of this Age Resolved Age Notes LastModified by Organization Details LastModified Time Mother Heart disease [email or web address] Not available 2022 15:01:07 Father Heart disease [email or web address] Not available 2022 15:01:07 Brother Heart disease [email or web address] Not available 2022 15:01:07 Brother Diabetes mellitus [email or web address] Not available 2022 15:01:19 Brother Arthritis Not availab le 11/02/2022 15:01:26 Medical History Condition Response Diabetes Y Gout Y Cancer Y Hypertension Y Gynecological HistoryNo gynecological history recorded. Obstetrics History GPAL:G 0 P 0 0 0 0 Past Encounters Encounter ID Performer Location Encounter Start Date Encounter Closed Date Diagnosis/Indication Diagnosis SNOMED-CT Code Diagnosis ICD10 Code Diagnosis Note [id number] MD TERRI Sawyerdee 299 [facility] [address] [place] [address] 11/02/2022 14:40:34 11/02/2022 15:37:39 Pain of left knee joint [id number] 34682 M25.562 Osteoarthr itis of left knee joint [id number] 65614 M17.12 38418 MD TERRI Sawyerdee [address] [address] 11/25/2022 14:19:37 11/25/2022 15:04:58 Pain of left hip joint [id number] 15378 M25.552 Osteoarthr itis of left hip joint 0176191372 00094 M16.12 30708 MD TERRI Sawyerdee 299 [facility] [address] [place] [address] 01/13/2023 13:36:39 01/13/2023 14:42:55 Pain of left hip joint [id number] 26194 M25.552 Osteoarthr itis of left hip joint [id number] 89743 M16.12 52890 MD TERRI Sawyer [facility] [address] [facility] [address] [place] [address] 02/01/2023 14:35:00 02/01/2023 15:11:50 Osteoarthritis of left knee joint [id number] 56243 M17.12 19698 Devfrancisca MURRAY [facility] [address] [facility] [address] [place] [address] 03/10/2023 13:34:58 03/10/2023 14:21:00 Tendinitis of hip [id number] M76.899 Health Concerns Section Related Observation LastModified by Organization Detai ls LastModified Time None Recorded Concern Status LastModified by Organization Details LastModified Time None Recorded Advance Directives Directive None Recorded Payers Encounter Date Sequence Insurance Name Policy Number Policy Olsen Covered Member ID Olsen Member ID Guarantor Name 11/02/2022 2 WPS - FOR LIFE (MEDICARE SUPPLEMENT) Malu Vini [id number] Malu Vini 11/02/2022 1 [place] [employer] Malu Y Vini [id number] Malu Vini 11/25/2022 2 WPS - FOR LIFE (MEDICARE SUPPLEMENT) Malu Vini [id number] Malu Vini 11/25/2022 1 [place] [employer] Malu Y Vini [id number] Malu Vini 01/13/2023 2 WPS - FOR LIFE (MEDICARE SUPPLEMENT) Malu Vini [id number] Malu Vini 01/13/2023 1 [place] [employer] Malu Y Vini [id number] Malu Vini 02/01/2023 2 WPS - FOR LIFE (MEDICARE SUPPLEMENT) Malu Vini [id number] Malu Vini 02/01/2023 1 [place] [employer] Malu Y Vini [id number] Malu Vini 03/10/2023 2 WPS - FOR LIFE (MEDICARE SUPPLEMENT) Malu Vini [id number] Malu Martini 03/10/2023 1 [place]: [facility] Malu Martini [id number] Malu Martini Notes Date Note Type Note Provider Name and Address Organization Details Recorded Time 11/02/2022 text/html This is a very pleasant 82-year-old female last seen 07/19/2022 for which she had a cortisone injection of the left knee joint due to osteoarthritis. She has multiple comorbidities she is not interested in total knee replacement surgery and she gets good relief with cortisone injection. Pain is medial nature that gets worse with walking. She does utilize a cane. She does have chronic back problems. And she is on chronic pain medication. She denies any interval change in history. SAPNA LEE PA-C 299 [facility],[address] [facility], [place], [address], [place] - [facility] [place] [place], [facility] 11/04/2022 08:30:19 11/25/2022 text/html Very pleasant 82-year-old female today's visit for chief complaint of left hip groin pain. She states has been getting progressively worse for quite some time she has difficulty moving her leg in and out of a vehicle. She does have chronic back pain for which she has been on prolonged narcotics in the past. She denies any paresthesias denies any bladder or bowel changes. Here for evaluation treatment SAPNA LEE PA-C 299 [facility],[address] [facility], [place], [address], [place] - [facility] [place], [facility] 11/28/2022 06:50:53 02/01/2023 text/html This is a pleasa nt 82-year-old female history of left knee arthritis nonsurgical candidate last cortisone injection within her left knee joint was on 11/02/2022. She states this gave her satisfactory relief however symptoms have returned. Symptoms medial joint space pain worse with walking and bending. No fevers no chills no flulike symptoms no warmth overlying the left knee. SAPNA LEE PA-C [address], [place], [address], [place] - [facility] [place] [place], [facility] 02/02/2023 08:44:04 OBGyn Episode No OBEpisode recorded.
--- OUTSIDE RECORDS SUMMARY | 2024-08-01 05:41 | XMS_ITS ---
Author Organization [facility] Address [address] [place] [address] Care Team Providers Care Casting Chipper Name Role Phone Beau Perez MD Primary Care Provider Irena Vanegas [phone] REASON FOR VISIT cx appt 07/29/24 Encounters Encounter Location Date Provider Diagnosis [address] [address] 07/08/2024 Irena Tillman Plan Of Treatment No Information Progress Notes * Malu MORRISONDOB:[birth year] (84 yo F)Acc No.[id number]:07/08/2024 Patient:?Aron MORRISONfred Adams :1940???Age:84 Y???Sex:Female Address:[address] [place] [address], [place], [address] * true * Date:? Generated for Beboi ahsan/Beata/eTransmitting on:?08/01/2024 05:40 AM EST
--- OUTSIDE RECORDS SUMMARY | 2024-08-01 05:41 | XMS_ITS ---
[facility] Organization [facility] Address [address] [place] [address] Care Team Providers Care Independent Contractor Name Role Phone Ana MONTOYA, Beau Primary Care Provider Irena Vanegas [phone] Encounters Encounter Location Date Provider Diagnosis [facility] [address] [address] 06/14/2024 Irena Tillman Plan Of Treatment No Information Progress Notes * Malu MORRISON YDOB:[birth year] (84 yo F)Acc No.[id number]:06/14/2024 Progress Note Patient:Malu VEGA Provider:?Irena Tillman DPM :1940???Age:84 Y???Sex:Female D ate:06/14/2024 Address:[address] [place] [address], [facility] [address], [facility] Pcp:Beau Perez MD Subjective: * Chief Complaints: * ??? * Medical History:? Objective: * Vitals:? Assessment: Plan: * Treatment: * Images: * The named appointment provid er may or may not be the originator of this progress note, and it is not deemed complete until electronically signed by the appointment provider. Sign off status: Pending * Provider:?Irena Tillman DPM Date:?0 06/14/2024 Generated for Kaleb foreman/Beata/eTransmitting on:?08/01/2024 05:40 AM EST
--- OUTSIDE RECORDS SUMMARY | 2024-08-01 05:41 | XMS_ITS ---
Author Organization [facility] Address [address] [place] [address] Care Team Providers Care Fire Loss Prevention Engineer Name Role Phone Ana MONTOYA, Beau Primary Care Provider Irena Vanegas [phone] Encounters Encounter Location Date Provider Diagnosis [facility] [address] [place] [address] 07/09/2024 Irena Tillman Plan Of Treatment No Information Progress Notes * Malu MORRISON YDOB:[birth year] (84 yo F)Acc No.[id number]:07/09/2024 Progress Note Patient:Malu VEGA Provider:?Irena Tillman DPM :1940???Age:84 Y???Sex:Female D ate:07/09/2024 Address:[address] [place] [address], [facility] 1, [facility] Pcp:Beau Perez MD Subjective: * Chief Complaints: * ??? * Medical History:? Objective: * Vitals:? Assessment: Plan: * Treatment: * Images: * The named appointment provid er may or may not be the originator of this progress note, and it is not deemed complete until electronically signed by the appointment provider. Sign off status: Pending * Provider:?Irena Tillman DPM Date:?0 07/09/2024 Generated for Kaleb foreman/Beata/eTransmitting on:?08/01/2024 05:41 AM EST
[2024-08-01 06:09] LABS: Basophils Absolute Auto 0.1 X10*3/uL (0.0-0.2); Basophils Percent Auto 0.6 % (0-2); Eosinophils Absolute Auto 0.1 X10*3/uL (0.0-0.4); Eosinophils Percent Auto 1.3 % (0-4); Hematocrit 29.1 % (37.0-47.0); Hemoglobin 9.5 g/dl (12.0-16.0); Imm Gran Abs Auto 0.02 X10*3/uL (0.00-0.03); Imm Gran Pct Auto 0.2 % (0.0-0.4); Lymphocytes Absolute Auto 2.4 X10*3/uL (1.2-4.9); Lymphocytes Percent Auto 28.4 % (20-40); Mean Corpuscular HGB Conc 32.6 g/dl (31.0-35.0); Mean Corpuscular Volume 91.8 fL (80.0-98.0); Mean Platelet Volume 11.3 fL (9.4-12.3); Monocytes Percent Auto 12.3 % (2-11); Neutrophils Absolute Auto 4.8 x10*3/uL (2.0-8.3); Neutrophils Percent Auto 57.2 % (45-73); Platelet Count 256 X10*3/uL (160-400); Red Blood Count 3.17 X10*6/uL (4.20-5.50); Red Cell Distribution Width 16.5 % (11.0-16.0); White Blood Count 8.4 X10*3/uL (4.8-10.8)
[2024-08-01 06:35] LABS: Alanine Aminotransferase < 6 U/L (0-31); Albumin Level 3.4 g/dL (3.5-5.0); Alkaline Phosphatase 69 U/L (39-117); Anion Gap 16 (12-20); Aspartate Amino Transferase 30 U/L (5-31); Bilirubin Total 0.4 mg/dL (0.0-1.0); Blood Urea Nitrogen 42 mg/dL (9-16); Calcium 8.8 mg/dL (8.4-10.2); Carbon Dioxide 25 mmol/L (22-29); Chloride 99 mmol/L (96-108); Estimated Glomerular Filt Rate 12; Glucose Random 103 mg/dL (60-115); Potassium 4.4 mmol/L (3.3-5.1); Sodium 136 mmol/L (135-145); Total Protein 6.5 g/dL (6.5-8.0)
== END 2024-08-01 05:38 | disposition home or self-care (01) ==
LOC: HO.MMNH1L 05:37
PROVIDERS: Visit Provider Nurse Practitioner
DX: I49.01 Ventricular fibrillation (principal)
CPT/HCPCS: 36415; 80053; 85025

== ENCOUNTER 2024-08-05 06:21 | Outpatient (REF) | payer MEDICARE, OTHER, SELFPAY ==
[2024-08-05 06:13] LABS: MANUAL DIFF FLAG NO
--- OUTSIDE RECORDS SUMMARY | 2024-08-05 06:36 | XMS_ITS | Patient Health Record ---
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 Problem Essential hypertension (90194634) Essential (primary) hypertension (I10) Active confirmed Problem Type II diabetes mellitus without complication (239133268) Type 2 diabetes mellitus without complications (E11.9) Active confirmed Plan Of Treatment No Information Insurance Providers Payer Name Payer Address Payer Phone Subscriber Number Group Number Insured Name Patient Relationship to Insured Coverage Start Date Coverage End Date MEDICARE [address] [facility] [place] [id number] MADIE MORRISON Self - patient is the insured /[employer] [address] [place] [address] [phone] [id number] CORNELIO MORRISON Spouse - patient is the spouse of the insured Medical (General) History Medical History History ICD Code Essential (primary) hypertension I10 Type 2 diabetes mellitus without complic ations E11.9 osteoarthritis Surgical History Surgery Date(Month/Year) HYSTERECTOMY BSO for heavy menses age 32 CHOLECYTECTOMY APPENDECTOMY BACK SURGERY 2009 HAND SURGERY 2006
--- OUTSIDE RECORDS SUMMARY | 2024-08-05 06:36 | XMS_ITS | Clinical Summary ---
Author Organization [facility] Address [address] [place] [address] Care Team Providers Care Microbiology Director Name Role Phone Beau Perez Primary Care Provider [phone] Allergies Active Allergy Reactions Criticality Noted Date [...] age to complete this topic Care Teams Microbiology Director Relationship Specialty Start Date End Date Beau Perez DO [address] [place] [address] PCP - General Internal Medicine 08/10/18
--- OUTSIDE RECORDS SUMMARY | 2024-08-05 06:37 | XMS_ITS ---
Author Organization [facility] Address [address] [place] [address] Care Team Providers Care Flash Oven Operator Name Role Phone Beau Perez MD Primary Care Provider Irena Vanegas [phone] REASON FOR VISIT cx appt 07/29/24 Encounters Encounter Location Date Provider Diagnosis [address] [address] 07/08/2024 Irena Tillman Plan Of Treatment No Information Progress Notes * Malu MORRISONDOB:[birth year] (84 yo F)Acc No.[id number]:07/08/2024 Patient:?Aron MORRISONfred Adams :1940???Age:84 Y???Sex:Female Address:[address] [place] [address], [place], [address] * true * Date:? Generated for Beboi ahsan/Beata/eTransmitting on:?08/05/2024 06:37 AM EST
--- OUTSIDE RECORDS SUMMARY | 2024-08-05 06:37 | XMS_ITS | Clinical Summary ---
Author Organization [facility] Address [address] [place] [phone] Phone Care Team Providers Care Forest Ranger Name Role Phone Unavailable Primary Care Provider Unavailabl e Encounters Date Type Department Care Team Description 08/01/2024 Orders Only [facility] [address] [id number] Sergey Novak MD 08/01/2024 Treatment [facility] [address] [id number] Sergey Novak MD from Last 3 Months Social History Tobacco Use Types Packs/Day Years Used Date Smoking Tobacco: Never Assessed Comments Unknown Sex and Gender Information Value Date Recorded Sex Assigned at Not on file Legal Sex Female 5:05 PM EST Gender Identity Not on file Sexual Orientation Not on file Plan of Treatment Health Maintenance Due Date Last Done Comments Pneumococcal Vaccine: 65+ Years (1 of 2 - PCV) 947 Hepatitis B Vaccine (1 of 5 - Risk Dialysis 4-dose series) 1960 Influenza Vaccine (#1) 2024 Diabetes: Ophthalmology Exam 07/06/2024 Diabetes: Pedal Pulse Checked 07/06/2024 Diabetes: Sensory Foot Exam 07/06/2024 Diabetes: Visual Foot Exam 07/06/2024 Diabetes: Hemoglobin A1C 10/29/2024 08/01/2024 Procedures Procedure Name Priority Date/Time Associated Diagnosis Comments HEPATITIS B CORE AB TOTAL Routine 08/01/2024 3:00 AM EST CONFIRMATION TEST HCV Routine 08/01/2024 3:00 AM EST HEPATITIS C ABS W/REFLEX RNA DETECTR Routine 08/01/2024 3:00 AM EST TRANSFERRIN SATURATION Routine 3:00 AM EST URIC ACID Routine 08/01/2024 3:00 AM EST PROTEIN, TOTAL, SERUM Routine 08/01/2024 3:00 AM EST LIPID PANEL Routine 08/01/2024 3:00 AM EST ELECTROLYTE PANEL Routine 08/01/2024 3:0 0 AM EST MAGNESIUM Routine 08/01/2024 3:00 AM EST LACTATE DEHYDROGENASE Routine 08/01/2024 3:00 AM EST LIH (HC) Routine 08/01/2024 3:00 AM EST GLUCOSE, RANDOM Routine 08/01/2024 3:00 AM EST CREATININE, SERUM Routine 08/01/2024 3:0 0 AM EST AST Routine 08/01/2024 3:00 AM EST ALKALINE PHOSPHATASE Routine 08/01/2024 3:00 AM EST BILIRUBIN, TOTAL Routine 08/01/2024 3:00 AM EST ALT Routine 08/01/2024 3:00 AM EST CALCIUM PHOSPHORUS PRODUCT, ADJUSTED (HC) Routine 08/01/2024 3:00 AM EST HEPATITIS B SURFACE ANTIGEN W/REFL CONFIRM Routine 08/01/2024 3:00 AM EST VITAMIN D 25 HYDROXY Routine 08/01/2024 3:00 AM EST FERRITIN Routine 08/01/2024 3:00 AM EST HEPATITIS B SURFACE ANTIBODY QUANT Routine 08/01/2024 3:00 AM EST PTH, INTACT Routine 08/01/2024 3:00 AM EST HEMOGLOBIN A1C Routine 08/01/2024 3:00 AM EST KT/V NATURAL LOG, URR (HC) Routine 08/01/2024 3:00 AM EST CBC AND DIFFERENTIAL Routine 08/01/2024 3:00 AM EST from Last 3 Months Results * Confirmation Test HCV (08/01/2024 3:00 AM EST) Hep C Ab Confirmation Not needed [facility] 08/01/2024 3:00 AM EST 08/02/2024 11:56 AM EST us Sergey Novak MD LAB BLOOD ORDERABLES Final Result Performing Organization Address [facility] Co de Phone Number [facility] [address] [place] [address] * LIH (08/01/2024 3:00 AM EST) Lipemia Normal Normal [facility] Icterus Normal Normal [facility] Hemolysis Normal Normal [facility] 08/01/2024 3:00 AM EST 08/02/2024 11:57 AM EST us Sergey Novak MD LAB HISTORICA [id number] RESULTS Final Result Performing Organization Address [facility] Co de Phone Number [facility] [address] [place] [address] * (ABNORMAL) Kt/V Natural Log, URR (08/01/2024 3:00 AM EST) Treatment Time 151 min [facility] Pre-Weight, lb 55.1 kg [facility] Post-Weight, lb 54.1 kg [facility] Ultrafiltration Rate 7 <=13 mL/kg/hr [facility] Comment: Recommend achieving Ultrafiltration Rate (UFR) <=10 mL/kg/hr References: Cyndee PEACE et al. Kidney Int. 2010; 79(2):250-257 BUN Post Dialysis 8 7 - 25 mg/dL [facility] BUN 37(H) 7 - 25 mg/dL [facility] UREA REDUCTION RATIO (%) 78 >=65 % [facility] Kt/V Natural Log 1.69 >=1.2 [facility] 08/01/2024 3:00 AM EST 08/02/2024 11:57 AM EST Sergey Novak MD LAB HISTORICA [id number] RESULTS Final Result Performing Organization Address [facility] de Phone Number [facility] [address] [place] [address] * Calcium Phosphorus Product, Adjusted (08/01/2024 3:00 AM EST) Albumin 4.1 3.6 - 5.4 g/dL [facility] Calcium 9.2 8.6 - 10.3 mg/dL [facility] Phosphorus, Serum 4.6 2.5 - 5.0 mg/dL [facility] Ca*PO4 42.3 <55.0 mg2/dL2 [facility] Calcium, Adjusted Total 9.2 8.6 - 10.3 mg/dL [facility] CA*PO4 CORRCTD 42.3 <55.0 mg2/dL2 [facility] 08/01/2024 3:00 AM EST 08/02/2024 11:57 AM EST Sergey Novak MD LAB HISTORICA [id number] RESULTS Final Result Performing Organization Address [facility] Co de Phone Number [facility] [address] [place] [address] * HEPATITIS C ABS W/REFLEX RNA DETECTR (08/01/2024 3:00 AM EST) [facility] Hep C Virus Ab Non-Reacti ve Non-Reacti ve [facility] 08/01/2024 3:00 AM EST 08/02/2024 11:57 AM EST Sergey Novak MD LAB HISTORICA [id number] RESULTS Final Result Performing Organization Address [facility] de Phone Number [facility] [address] [place] [address] * Hepatitis B Surface Ag w/Reflex Confirmation (08/01/2024 3:00 AM EST) [facility] Hep B Surface Antigen Negative Negative [facility] 08/01/2024 3:00 AM EST 08/02/2024 11:57 AM EST Sergey Novak MD LAB BLOOD ORDERABLES Final Result Performing Organization Address [facility] de Phone Number [facility] [address] [place] [address] * (ABNORMAL) TSAT (08/01/2024 3:00 AM EST) [facility] Iron 46(L) 50 - 170 ug/dL [facility] Transferrin 268 250 - 380 mg/dL [facility] TIBC 375 211 - 406 ug/dL [facility] Iron Saturation (TSat) 12(L) 22 - 52 % [facility] 08/01/2024 3:00 AM EST 08/02/2024 11:57 AM EST us Sergey Novak MD LAB BLOOD ORDERABLES Final Result Performing Organization Address [facility] de Phone Number [facility] [address] [place] [address] * Hepatitis B Core Antibody, Total (08/01/2024 3:00 AM EST) HBc Total Ab, S Negative Negative [facility] 08/01/2024 3:00 AM EST 08/02/2024 11:57 AM EST Sergey Novak MD LAB BLOOD ORDERABLES Final Result Performing Organization Address [facility] de Phone Number [facility] [address] [place] [address] * Vitamin D 25 Hydroxy (08/01/2024 3:00 AM EST) [facility] Vitamin D, 25-Hydroxy 21 30 - 100 ng/mL [facility] Comment: Status ? Adult ?? Pediatric Deficient: ? <20 ? <15 Insufficient: ??20-29 ?? 15-19 Sufficient: ?30-100 ??20-100 08/01/2024 3:00 AM EST 08/02/2024 11:57 AM EST Sergey Novak MD LAB BLOOD ORDERABLES Final Result Performing Organization Address [facility] de Phone Number [facility] [address] [place] [address] * (ABNORMAL) Hepatitis B Surface Antibody (08/01/2024 3:00 AM EST) [facility] Hep B Surface Antibody <4(A) mIU/mL [facility] Comment: Interpretation: <10: No Immunity >=10: Probable Immunity 08/01/2024 3:00 AM EST 08/02/2024 11:57 AM EST Sergey Novak MD LAB BLOOD ORDERABLES Final Result Performing Organization Address [facility] de Phone Number [facility] [address] [place] [address] * (ABNORMAL) CBC and Differential (08/01/2024 3:00 AM EST) [facility] DIFFERENTIAL MANUAL, 2 Not Indicated [facility] White Blood Cells 7.7 4.0 - 10.0 K/uL [facility] RBC 3.39(L) 3.93 - 5.22 M/uL [facility] Hgb 10.1(L) 11.2 - 15.7 g/dL [facility] Hemoglobin x 3 30.3(L) 33.6 - 47.1 g/dL [facility] Hematocrit 31.4(L) 34.1 - 44.9 % [facility] MCV 92.6 79.4 - 94.8 fL [facility] MCH 29.8 25.6 - 32.2 pg [facility] MCHC 32.2 32.2 - 35.5 g/dL [facility] Platelets 276 182 - 369 K/uL [facility] RDW 16.1(H) 11.7 - 14.4 % [facility] Neutrophils Relative 60.6 34.0 - 71.1 % [facility] Lymphocytes Relative 27.3 19.3 - 51.7 % [facility] Monocytes 9.9 4.7 - 12.5 % [facility] Eosinophils Relative 1.4 0.7 - 5.8 % [facility] Basophils Relative 0.5 0.1 - 1.2 % [facility] Immature Granulocytes 0.3 0.0 - 1.0 % [facility] 08/01/2024 3:00 AM EST 08/02/2024 11:56 AM EST us Sergey Novak MD LAB BLOOD ORDERABLES Final Result [facility] [address] [place] [address] * Uric Acid (08/01/2024 3:00 AM EST) Pathologist [facility] Uric Acid 4.6 2.3 - 6.6 mg/dL [facility] 08/01/2024 3:00 AM EST 08/02/2024 11:57 AM EST us Sergey Novak MD LAB BLOOD ORDERABLES Final Result [facility] [address] [place] [address] * (ABNORMAL) ALT (08/01/2024 3:00 AM EST) ALT (SGPT) 7(L) 10 - 49 U/L [facility] 08/01/2024 3:00 AM EST 08/02/2024 11:57 AM EST us Sergey Novak MD LAB BLOOD ORDERABLES Final Result Performing Organization Address [facility] de Phone Number [facility] [address] [place] [address] * AST (08/01/2024 3:00 AM EST) AST (SGOT) 27 <34 U/L [facility] 08/01/2024 3:00 AM EST 08/02/2024 11:57 AM EST us Sergey Novak MD LAB BLOOD ORDERABLES Final Result Performing Organization Address [facility] Phone Number [facility] [address] [place] [address] * Protein, total (08/01/2024 3:00 AM EST) Total Protein 6.6 6.4 - 8.9 g/dL [facility] 08/01/2024 3:00 AM EST 08/02/2024 11:57 AM EST us Sergey Novak MD LAB BLOOD ORDERABLES Final Result Performing Organization Address [facility] de Phone Number [facility] [address] [place] [address] * Alkaline phosphatase (08/01/2024 3:00 AM EST) Alkaline Phosphatase 75 46 - 116 U/L [facility] 08/01/2024 3:00 AM EST 08/02/2024 11:57 AM EST us Sergey Novak MD LAB BLOOD ORDERABLES Final Result Performing Organization Address [facility] de Phone Number [facility] [address] [place] [address] * PTH, Intact (08/01/2024 3:00 AM EST) PTH, Intact 188 160 - 721 pg/mL [facility] Comment: Suggested (KDIGO) ESRD maintenance range is two to nine times the upper normal limit (80.1 pg/mL) for the laboratory. 08/01/2024 3:00 AM EST 08/02/2024 11:57 AM EST Sergey Novak MD LAB BLOOD ORDERABLES Final Result Performing Organization Address [facility] de Phone Number [facility] [address] [place] [address] * Magnesium (08/01/2024 3:00 AM EST) Magnesium 2.6 1.9 - 2.7 mg/dL [facility] 08/01/2024 3:00 AM EST 08/02/2024 11:57 AM EST Sergey Novak MD LAB BLOOD ORDERABLES Final Result Performing Organization Address [facility] de Phone Number [facility] [address] [place] [address] * Lactate dehydrogenase (08/01/2024 3:00 AM EST) LDH 243 120 - 246 U/L [facility] 08/01/2024 3:00 AM EST 08/02/2024 11:57 AM EST Sergey Novak MD LAB BLOOD ORDERABLES Final Result Performing Organization Address [facility] de Phone Number [facility] [address] [place] [address] * (ABNORMAL) Hemoglobin A1c (08/01/2024 3:00 AM EST) Hemoglobin A1C 5.8(H) <5.7 % [facility] Comment: Methodology: Enzymatic HbA1c (NGSP %) ?Suggested Diagnosis >6.4% ? Diabetic 5.7-6.4% ?Pre-Diabetic <5.7% ? Non-Diabetic Diabetic Glucose Control Evaluation: Therapeutic action suggested at >8.0% ADA recommends a glycemic goal of <7.0% 08/01/2024 3:00 AM EST 08/02/2024 11:56 AM EST Sergey Novak MD LAB BLOOD ORDERABLES Final Result Performing Organization Address [facility] Co de Phone Number [facility] [address] [place] [address] * (ABNORMAL) Glucose, random (08/01/2024 3:00 AM EST) Glucose 144(H) 74 - 109 mg/dL [facility] 08/01/2024 3:00 AM EST 08/02/2024 11:57 AM EST Sergey Novak MD LAB BLOOD ORDERABLES Final Result Performing Organization Address [facility] de Phone Number [facility] [address] [place] [address] * (ABNORMAL) Ferritin (08/01/2024 3:00 AM EST) Ferritin 696(H) 10 - 291 ng/mL [facility] 08/01/2024 3:00 AM EST 08/02/2024 11:57 AM EST Sergey Novak MD LAB BLOOD ORDERABLES Final Result Performing Organization Address [facility] de Phone Number [facility] [address] [place] [address] * (ABNORMAL) Creatinine, serum (08/01/2024 3:00 AM EST) Creatinine 3.75(H) 0.55 - 1.02 mg/dL [facility] 08/01/2024 3:00 AM EST 08/02/2024 11:57 AM EST us Sergey Novak MD LAB BLOOD ORDERABLES Final Result Performing Organization Address [facility] Co de Phone Number [facility] [address] [place] [address] * Bilirubin, total (08/01/2024 3:00 AM EST) Total Bilirubin 0.4 0.3 - 1.2 mg/dL [facility] 08/01/2024 3:00 AM EST 08/02/2024 11:57 AM EST us Sergey Novak MD LAB BLOOD ORDERABLES Final Result Performing Organization Address [facility] de Phone Number [facility] [address] [place] [address] * (ABNORMAL) Lipid panel (08/01/2024 3:00 AM EST) Cholesterol 117 <200 mg/dL [facility] Comment: Optimal: ?<200 Borderline: ? 200-239 Higher Risk: ?>239 Triglycerides 180(A) <150 mg/dL [facility] Comment: Optimal: ?<150 Borderline High: ??150-199 High: ? 200-499 Very High: ?>499 HDL 57(A) >59 mg/dL [facility] Comment: Desirable: ?>59 Higher Risk: ?<40 LDL-Calc 24 <100 mg/dL [facility] Comment: Optimal: ?<100 Above Optimal: ?100-129 Borderline High: ??130-159 High: ? 160-189 Very High: ?>189 VLDL Cholesterol Danny 36(A) <30 mg/dL [facility] Comment: Optimal: ?<30 Borderline High: ??30-39 High: ? 40-99 Very High: ?>99 Chol/HDL Ratio 2.1 <3.3 [facility] Comment: Optimal: ?<3.3 Higher Risk: ?>6.2 08/01/2024 3:00 AM EST 08/02/2024 11:57 AM EST Sergey Novak MD LAB BLOOD ORDERABLES Final Result Performing Organization Address [facility] de Phone Number [facility] [address] [place] [address] * (ABNORMAL) Electrolyte panel (08/01/2024 3:00 AM EST) Sodium 132(L) 136 - 145 mEq/L [facility] Potassium 4.3 3.4 - 5.0 mEq/L [facility] Chloride 97(L) 98 - 107 mEq/L [facility] Bicarbonate (CO2) 26 21 - 31 mEq/L [facility] Anion Gap 9 3 - 14 mEq/L [facility] 08/01/2024 3:00 AM EST 08/02/2024 11:57 AM EST Sergey Novak MD LAB BLOOD ORDERABLES Final Result Performing Organization Address [facility] de Phone Number [facility] [address] [place] [address] from Last 3 Months Insurance [address] [place] [id number] [employer] [address] [place] [id number]
--- OUTSIDE RECORDS SUMMARY | 2024-08-05 06:37 | XMS_ITS | Data Portability ---
Author Organization [place] [facility] Bruce Thomas AONE Arion Address [address] [facility] [address] [place] [address] Care Team Providers Care Instructional Specialist Name Role Phone JOSE LUIS DEJESUS Primary Care Provider [phone] Assessment Encounter Date Assessment Date Assessment LastModified [...] the meantime she can take her current [id number] pain medication for symptomatic relief. She agrees [...] or 3 view 2022 023 [facility], [address], [place], [address], 3 15:22:09 XR, knee, 4 or more view 2022 023 [facility], [address], [place], [address], 3 06:25:45 Medication Orders Marcaine (PF) 0.5 % (5 mg/mL) injection solution 2022 023 [email or web address], [address] [place] [address], [address], 3 14:51:06 lidocaine (PF) 100 mg/5 mL (2 %) injection syringe 2022 023 [email or web address], [address] [place] [address], [address], 3 14:51:06 Kenalog 40 mg/mL suspension for injection 2022 023 [email or web address], [address] [place] [address], [address], 3 14:51:06 Kenalog 40 mg/mL suspension for injection 2022 023 [facility], [address] [place] [address], [address], 3 08:43:07 lidocaine (PF) 10 mg/mL (1 %) injection solution 2022 023 [facility], [address] [place] [address], [address], 3 08:43:07 Kenalog 40 mg/mL suspension for injection 2022 023 [facility], [address] [place] [address], [address], 3 08:30:16 lidocaine (PF) 10 mg/mL (1 %) injection solution 2022 023 [facility], [address] [place] [address], [address], 08:30:16 Patient TargetsNo targets recorded. Patient Instructions Encounter Date Encounter Id Patient Instructions Last Modified By Organization Details Last Modified Time 11/02/2022 [id number] You have been provided with a cortisone [...] bony abnormality. 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 Not available 11/28/2022 06:50:20 02/01/2023 [id number] You have been provided with a cortisone [...] Time Osteoarthri tis of left hip joint 0465078962362 08 Active 2022 SAPNA LEE PA-C [address] [facility],[address], [place], [address], [place] [facility], [facility] 3 06:50:31 Pain of left hip joint 5770541553445 00 Active 2022 Eugenio Boyd MD [address] [facility],[address], [place], [address], [place] [facility], [facility] 3 14:27:47 Pain of left knee joint 3808137137652 07 Active 2022 SAPNA LEE PA-C [address] [facility],[address], [place], [address], [place] [facility], P 3 08:40:14 Tendinitis of hip 024464440 Active 2022 Eugenio Boyd MD [address], [place], [address], [place] [facility], [facility] 3 14:14:57 Osteoarthri tis of left knee joint 0087318725111 09 Active 2022 SAPNA LEE PA-C [address], [place], [address], [place] [facility], [facility] 3 08:28:19 Problem Notes None recorded. Procedures Surgical History Date Name Laterality Status Provider Name and Address Organization Details Recorded Time 3 MJG GT injection completed Eugenio Boyd MD [address] [facility], [place], [address], [place] [facility], [facility] 03/10/2023 14:17:07 3 Knee Joint/Bursa Asp & Inj completed SAPNA LEE PA-C [address] [facility] [address], [place], [address], [place] [facility], P 02/02/2023 08:39:44 3 MJG Hip Injection w/US completed Eugenio Boyd MD [address] [facility], [place], [address], [place] [facility], P 01/13/2023 14:29:44 3 Knee Joint/Bursa Asp & Inj completed SAPNA LEE PA-C [address], [place], [address], [place] [facility], [facility] 11/04/2022 08:27:26 Imaging Results None recorded. Procedure Notes None recorded. Medical Equipment None Reported. Allergies Allergen ID Allergen Name Allergen Category Reaction Reaction Severity Criticality Documentation Date Start Date Code Code System Note Provider Name and Address Organization Details Recorded Time 4656 tolmetin sodium medicatio n Not available Not available Not available 11/02/2022 14137 RxNorm Amirah colin, [place] [facility], P 14:59:48 4657 diclofena c Not available Not available Not available Not available 11/02/2022 3355 RxNorm Amirah Sheehan null, [place] [facility], P 3 14:59:54 Medications Name Sig Start [...] Updated DateTime 11/02/2022 154.94 cm 27.8 kg/m2 12768.[address] [place] [facility], P 11/02/2022 15:00:10 Date Recorded Body height Body mass index (BMI) Body weight Provider Name and Address Organization Details Last Updated DateTime 01/13/2023 154.94 cm 26.1 kg/m2 [address] [place] [facility], [facility] 01/13/2023 14:00:19 Date Recorded Body height Body mass index (BMI) Body weight Provider Name and Address Organization Details Last Updated DateTime 03/10/2023 154.94 cm 26.1 kg/m2 68905.[address] [place] [facility], [facility] 03/10/2023 13:50:35 Social History Question Answer Notes LastModified by Organizat ion Details LastModified Time Tobacco Smoking Status Former Smoker Amirah Aguila null, [place] [facility], [facility] 11/02/2022 15:00:27 When Did You Quit [...] SNOMED-CT Code Diagnosis ICD10 Code Diagnosis Note [id number] MD TERRI Sawyerdee [address] [facility] [address] [place] [address] 11/02/2022 14:40:34 11/02/2022 15:37:39 Pain of left knee joint 6046496645 10661 M25.562 Osteoarthr itis of left knee joint 5962377914 74679 M17.12 [id number] MD TERRI Sawyerdee [address] [address] 11/25/2022 14:19:37 11/25/2022 15:04:58 Pain of left hip joint 6368083921 41983 M25.552 Osteoarthr itis of left hip joint 4700602051 65307 M16.12 [id number] MD TERRI Sawyerdee [address] [facility] [address] [place] [address] 01/13/2023 13:36:39 01/13/2023 14:42:55 Pain of left hip joint 9722622779 63735 M25.552 Osteoarthr itis of left hip joint 6956852401 72499 M16.12 [id number] MD TERRI Sawyer [facility] [address] [facility] [address] [place] [address] 02/01/2023 14:35:00 02/01/2023 15:11:50 Osteoarthritis of left knee joint 1709096433 98379 M17.12 [id number] Devfrancisca MURRAY [facility] [address] [facility] [address] [place] [address] 03/10/2023 13:34:58 03/10/2023 14:21:00 Tendinitis of hip 777931447 M76.899 Health Concerns Section Related Observation LastModified by Organization Detai ls LastModified Time None Recorded Concern Status LastModified by Organization Details LastModified Time None Recorded Advance Directives Directive None Recorded Payers Encounter Date Sequence Insurance Name Policy Number Policy Olsen Covered Member ID Olsen Member ID Guarantor Name 11/02/2022 2 WPS - FOR LIFE (MEDICARE SUPPLEMENT) Malu Vini [id number] Malu Vini 11/02/2022 1 [place] [employer] Malu Y Ivni [id number] Malu Vini 11/25/2022 2 WPS - FOR LIFE (MEDICARE SUPPLEMENT) Malu Vini [id number] Malu Vini 11/25/2022 1 [place] [employer] Malu Y Vini [id number] Malu Vini 01/13/2023 2 WPS - FOR LIFE (MEDICARE SUPPLEMENT) Malu Vini [id number] Malu Vini 01/13/2023 1 [place] [employer] Malu Y Vini [id number] Malu Vini 02/01/2023 2 WPS - FOR LIFE (MEDICARE SUPPLEMENT) Malu Vini [id number] Malu Vini 02/01/2023 1 [place] [employer] Malu Y Vini [id number] Malu Vini 03/10/2023 2 WPS - FOR LIFE (MEDICARE SUPPLEMENT) Malu Vini [id number] Malu Martini 03/10/2023 1 [place]: [facility] Malu Martini [id number] Malu Martini Notes Date Note Type Note [...] change in history. SAPNA LEE PA-C [address] [facility],[address] [facility], [place], [address], [place] [facility], [facility] 11/04/2022 08:30:19 11/25/2022 text/html Very pleasant [...] for evaluation treatment SAPNA LEE PA-C [address] [facility],[address] [facility], [place], [address], [place] [facility], P 11/28/2022 06:50:53 02/01/2023 text/html This is [...] SAPNA LEE PA-C [address], [place], [address], [place] [facility] 02/02/2023 08:44:04 OBGyn Episode No OBEpisode recorded.
--- OUTSIDE RECORDS SUMMARY | 2024-08-05 06:37 | XMS_ITS | Data Portability ---
Author Organization [facility] Address [address] [place] [address] Assessment Encounter Date Assessment Date Assessment LastModified by Organization Details LastModified Time 09/25/2023 09/25/2023 [id number] [place] [id number] (VOLTAGE TESTER) MDM MODERATE MUST MEET 2 OUT OF [...] [email or web address] Not available 12/29/2023 14:21:29 03/11/2024 03/11/2024 [id number] [place] [id number] (VOLTAGE TESTER) MDM MODERATE MUST MEET 2 OUT OF [...] Go To The Location Of Their Choice, [id number] 4 12:33:03 CMP, serum or plasma 2023 [facility], [address] [place] [address], [address], 4 12:33:58 HbA1c (hemoglobi n A1c), blood 2023 024 [facility], [address] [place] [address], [address], 4 14:34:13 lipid panel, blood 2023 024 [facility], [address] [place] [address], [address], 4 14:34:13 CBC w/ auto diff 2023 024 [facility], [address] [place] [address], [address], 4 14:34:13 CMP, serum or plasma 2023 024 [facility], [address] [place] [address], [address], 4 14:34:13 CMP, serum or plasma 2023 024 [facility], [address] [place] [address], [address], 4 12:23:52 pro BNP (pro B-type natriureti c peptide), serum or plasma 2023 024 [facility], [address] [place] [address], [address], 4 12:23:52 ldh, serum or plasma 2023 024 [facility], [address] [place] [address], [address], 4 12:23:52 C reactive protein, QN, serum or plasma 2023 024 [facility], [address] [place] [address], [address], 4 12:23:52 ESR (erythrocy te sedimentat ion rate), blood 2023 024 [facility], [address] [place] [address], [address], 4 12:23:52 urinalysis complete, reflex culture 2023 024 [facility], [address] [place] [address], [address], 4 12:23:52 HbA1c (hemoglobi n A1c), blood 2023 024 [facility], [address] [place] [address], [address], 4 15:52:[address] fowler - [...] thank you! beau 2023 [email or web address] Goldman MD, [address] [place] [address], [address], 09:13:14 Procedures None recorded. Surgeries None recorded. Imaging None recorded. Medication Orders isosorbide mononitrat e ER 30 mg tablet,ext ended release 24 hr 2023 [facility], [address] [place] [address], [address], 12:03:51 furosemide 40 mg tablet 2023 024 [facility], [address] [place] [address], [address], 21:25:48 amoxicilli n 875 mg tablet 2023 024 [email or web address] [facility], [address] [place] [address], [address], 14:00:15 pregabalin 50 mg capsule 2023 024 [facility], [address] [place] [address], [address], 15:51:02 Patient TargetsNo targets recorded. Patient Instructions Encounter Date Encounter Id Patient Instructions Last Modified By Organization Details Last Modified Time 02/21/2024 [id number] leg and ankle edema: care instructions Not available 02/21/2024 14:32:15 advance care planning: care instructions Not available 02/21/2024 14:32:15 Discussed and explained advance directives such as standard forms to the {{patient caregiv er patient and caregiver*}}. Face to face discussion lasted for a duration of 14 minutes. Not available 02/21/2024 14:24:58 03/11/2024 [id number] angina: care instructions Not available 03/11/2024 12:03:48 learning about type 2 diabetes Not available 03/11/2024 12:03:48 type 2 diabetes: care instructions Not available 03/11/2024 12:03:47 05/20/2024 [id number] pulse oximetry* Not available 05/20/2024 12:32:51 sleep apnea: car e instructions Not available 05/20/2024 12:32:51 learning about type 2 diabetes Not available 05/20/2024 12:32:50 type 2 diabetes: care instructions Not available 05/20/2024 12:32:50 Reason for Referral [employer] Referral for An nancy pectoris hi mena! [...] pulse oxime try* Result 98% Not Available [facility] [address] [facility] [address], [place], [address], 05/20/2024 08:38:11 12/18/19 24 12/18/2023 XR, elbow No observ ation record ed. [facility] (Medical Records) [address], [place], [address], 12/18/2023 16:04:23 12/18/19 24 12/18/2023 CT, chest , w/o contr ast No observ ation record ed. [email or web address] [facility] (Medical Records) [address] [place], [address], 12/19/2023 08:03:16 12/18/19 24 12/18/2023 CT, cervi anali spine , w/o contr ast No observ ation record ed. [email or web address] [facility] (Medical Records) [address] [place], [address], 12/19/2023 08:03:38 12/18/19 24 12/18/2023 CT, head + brain , w/o contr ast No observ ation record ed. [email or web address] [facility] (Medical Records) [address] [place], [address], 12/19/2023 08:04:28 08/01/19 25 07/31/2024 , [facility] ardio gram No observ ation record ed. [email or web address] Not Available 2024 08:33:06 Result Notes None recorded. 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 Active 2017 Not Available [facility] 3 11:59:34 Type 2 diabetes mellitus 82802398 Active 2017 Not Available [facility] 3 11:59:35 Neuropathy due to diabetes mellitus 218488891 Active 2017 Not Available [facility] 3 11:59:34 Coronary arterioscl erosis 25077237 Active 2017 Not Available [facility] 3 11:59:35 Hyperchole sterolemia 31058135 Active 2017 Not Available [facility] 3 11:59:34 Glaucoma 37477285 Active 2017 Not Available [facility] 3 11:59:34 Osteoarthr itis 910112422 Active 2017 LS [facility] Available [facility] 3 11:59:34 Benign paroxysmal positional vertigo 833746115 Active 2017 Not Available [facility] 3 11:59:34 Depressive disorder 68323934 Active 2019 Not Available [facility] 3 11:59:34 Degenerati on of lumbar interverte bral disc 83098309 Active 2020 Not Available [facility] 3 11:59:34 Acute sinusitis 89846868 Active 2021 Not Available [facility] 3 11:59:34 Angina pectoris 572581601 Active 2023 Beau Perez DO [address] [place] [address], [address], [facility] 4 12:16:12 Diarrhea 79281716 Active 2023 Beau Perez DO [address] [place] [address], [address], [facility] 4 12:16:50 Diabetic peripheral neuropathy 862278570 Active 2023 Beau Perez DO [address] [place] [address], [address], [facility] 4 12:18:23 Acute otitis media 2627015 Active 2023 ALISON HANCOCK [address] [place] [address], [address], [facility] 4 12:20:32 Edema of lower extremity 455766156 Active 2023 ALISON HANCOCK [address] [place] [address], [address], [facility] 4 12:21:03 Acute otitis media 4706484 Active 2023 ALISON HANCOCK [address] [place], [address], [facility] 4 12:21:43 Tear of skin 739954361 Active 2023 Beau Perez, DO [address] [place] [address], [address], [facility] 4 12:06:46 Acute urinary tract infection 871800341 Active 2024 Beau Perez, DO [address] [place] [address], [address], [facility] 5 15:34:39 Obstructiv e sleep apnea syndrome 93251468 Active 2017 Not Available [facility] 3 11:59:35 Notes:Some problems listed i n Documents: #[id number], #[id number], #[id number], #[id number], #[id number], #[id number] could not be added to this patient's chart. Please review these documents and add these problems to the patient's chart manually as needed. Problem Notes None recorded. Procedures Surgical History None recorded. Imaging Results Imaging Date Name Status LastModified by Organization Details LastModified Time 12/18/2023 XR, elbow completed [facility] (Medical Records) [address] [place] [address], [address], 12/18/2023 16:04:23 12/18/2023 CT, chest, w/o contrast completed [address] (Medical Records) [address] [place], [address], 12/19/2023 08:03:16 12/18/2023 CT, cervical spine, w/o contrast completed [address] (Medical Records) [address] [place] [address], [address], 12/19/2023 08:03:38 12/18/2023 CT, head + brain, w/o contrast completed [address] (Medical Records) [address] [place] [address], [address], 12/19/2023 08:04:28 07/31/2024 US, echocardiogram completed [email or web address] Inform ation not available 08/01/2024 08:33:06 Procedure Notes None recorded. Medical Equipment None Reported. Allergies Allergen ID Allergen Name Allergen Category Reaction Reaction Severity Criticality Documentation Date Start Date Code Code System Note Provider Name and Address Organization Details Recorded Time 1555 tolmetin sodium medicatio n Not available Not available Not available 11/08/2017 61017 RxNorm anaph ylaxi s Beau AlexandraMax Perez, DO [address] [place], [address], [place] [facility] 0 12:27:21 2441 prednison e medicatio n chest pain severe Not available 03/26/20182017 8640 RxNorm Beau Perez, DO [address] [place], [address], [facility] 9 11:16:33 288 diclofena c Not available Not available Not available Not available 08/08/2017 3355 RxNorm Amirah colin [facility] Internal [facility] 8 09:05:32 289 metformin medicatio n diarrhea Not available Not available 08/08/2017 6809 RxNorm Amirah colin [facility] Internal [facility] 8 09:06:18 290 Lipitor medicatio n Not available Not available Not available 08/08/2017 07195 5 RxNorm Beau Perez, DO [address] [place], [address], [facility] Internal [facility] 8 11:28:14 291 lisinopri l medicatio n cough Not available Not available 08/08/2017 92249 RxNorm Amirah colin [facility] 8 09:11:21 6254 Product containin g 3-hydroxy -3-methyl glutaryl- coenzyme A reductase inhibitor (product) medicatio n nausea moderate Not available 06/03/2022 05134 009 SNOMED Beau Perez, DO [address] [place], [address], [facility] 2 10:21:10 Medications Name Sig Start Date [...] Ultra-Fine Short Pen Needle 31 gauge x /16 active Not Available Not Available Not Available Rajivt Solostar U-100 Insulin 100 unit/mL (3 mL) [...] Available Unifine Pentips Plus 32 gauge x 5/32 [...] Available N ot Available FreeStyle John 2 [place] USE DAILY TO MONITOR BLOOD GLUCOSE active [...] Updated DateTime 4 155.58 cm 26.3 kg/m2 97841.7 3 g 59 /min 99 % 99 % 132 mm[Hg] 88 mm[Hg] Bekah Thomas [facility] 4 15:27:32 Date Recorded Body height Body mass index (BMI) Body weight Heart rate Oxygen saturation Oxygen saturation in Arterial blood by Pulse oximetry Systolic blood pressure Diastolic blood pressure Provider Name and Address Organization Details Last Updated DateTime 4 155.58 cm 27.4 kg/m2 09062.8 5 g 70 /min 98 % 98 % 130 mm[Hg] 72 mm[Hg] Bekah Drew [facility] 4 12:06:41 Date Recorded Body height Body mass index (BMI) Body weight Heart rate Oxygen saturation Oxygen saturation in Arterial blood by Pulse oximetry Systolic blood pressure Diastolic blood pressure Provider Name and Address Organization Details Last Updated DateTime 4 155.58 cm 28.6 kg/m2 51017.9 1 g 66 /min 98 % 98 % 132 mm[Hg] 78 mm[Hg] Bekah Thomas [facility] 4 14:07:36 Date Recorded Body height Heart rate Oxygen saturation Oxygen saturation in Arterial blood by Pulse oximetry Systolic blood pressure Diastolic blood pressure Provider Name and Address Organization Details Last Updated DateTime 4 155.58 cm 60 /min 99 % 99 % 138 mm[Hg] 68 mm[Hg] Catalina Schuler [facility] 4 11:35:24 Date Recorded Body height Body mass index (BMI) Body weight Heart rate Oxygen saturation Oxygen saturation in Arterial blood by Pulse oximetry Systolic blood pressure Diastolic blood pressure Provider Name and Address Organization Details Last Updated DateTime 4 156.21 cm 28.6 kg/m2 71281.2 2 g 69 /min 98 % 98 % 128 mm[Hg] 82 mm[Hg] Nikita Granger [facility] 4 11:47:41 Social History Question Answer Notes LastModified by Organizat ion Details LastModified Time Tobacco Smoking Status Former Smoker Not Available [facility] 04/07/2020 03:36:24 What Is Your Occupation? Retired [id number] Information not available 04/07/2020 What Was The [...] 50 mcg/0.25mL dose 1 completed Not Available [facility] 05/23/2023 11:59:35 COVID-19, mRNA, LNP-S, PF, 100 mcg/0.5mL dose or 50 mcg/0.25mL dose 1 completed Not Available [facility] 05/23/2023 11:59:35 pneumococcal polysaccharide PPV23 8 completed Not Available [facility] 05/23/2023 11:59:35 Influenza, split virus, quadrivalent, preservative 8 completed Not Available [facility] 05/23/2023 11:59:35 Influenza, split virus, quadrivalent, preservative 0 completed Not Available [facility] 05/23/2023 11:59:35 zoster, unspecified formulation 0 completed Not Available [facility] 05/23/2023 11:59:35 zoster, unspecified formulation 0 completed Not Available [facility] 05/23/2023 11:59:35 Pneumococcal conjugate PCV 13 6 completed Not Available [facility] 05/23/2023 11:59:35 Past Encounters Encounter ID Performer Location Encounter Start Date Encounter Closed Date Diagnosis/Indication Diagnosis SNOMED-CT Code Diagnosis ICD10 Code Diagnosis Note [id number] DO [facility] [address] [facility],[place] [address] 11/08/2017 10:49:19 11/08/2017 12:08:16 Type 2 diabetes mellitus 20376759 E11.9 needs to get a1c hakan Essential hypertension 04459549 I10 stable now on meds Obstructiv e sleep apnea syndrome 71662681 G47.33 needs to be using cpap told pt she can try nasal pillows [id number] Nely Palomares NP, S [facility] [address] [facility], [place] [address] 02/02/2018 14:44:51 02/02/2018 16:59:58 Pre-surgery evaluation 319093224 Z01.818 Type 2 oscar betes mellitus 81482088 E11.42 A1C 8.6 Essential hypertension 95114414 I10 stable [id number] Beau Perez DO [facility] [address] [facility], [place] [facility] [address] 02/19/2018 10:44:22 02/19/2018 11:20:04 Type 2 diabetes mellitus 01089079 E11.9 still not dropping sugars as a1c is still 8.6 on spec diet for diabetics and has lost wgt asked pt to chk sugars she is reluctant to dosent like to but grudgingly agreed to chk states will bring in results but in meantime will increase levemir to 26am and 32pm Essential hypertension 00777079 I10 stable now on meds Screening for osteoporosis 524493840 Z13.820 given order for test Stable angina 142771220 I20.8 currently symptom free of any angina type sx Benign par oxysmal positional vertigo 097807803 H81.10 doing well except when sugars are out of control Neuropathy due to diabetes mellitus 818596552 E11.40 some numbness in feet but good foot exam [id number] Nely Palomares NP, [facility] [address] [facility], [place] [facility] [place] [place] [address] 03/20/2018 10:51:05 03/21/2018 13:58:31 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 has at home [id number] Beau Perez [facility] [address] [facility], [place] [facility] [place] [address] 03/26/2018 10:51:39 03/26/2018 11:36:15 Type 2 diabetes mellitus 69228455 E11.9 still not dropping sugars as a1c is still 8.6 on spec diet for diabetics and has lost wgt asked pt to chk sugars she is reluctant to dosent like to but grudgingly agreed to chk states will bring in results but in meantime will increase levemir to 26am and 32pm Essential hypertension 47019811 I10 stable now on meds Hypercholesterolemia 136 13979 E78.00 Adult heal th examination 433390989 Z00.01 will need to loolk into why she is so fatigued and nott feeling well she appears quite pale as well will need major lab work to start and will see her back Screening for cardiovascular system disease 115830963 Z13.6 already started on lipitor agian with coq 10 Screening for malignant neoplasm of colon 761063827 Z12.11 wait until better gi willl call Screening for osteoporosis 222172295 Z13.820 given order for test Screening mammography 24 140956 Z12.31 test next monday [id number] Beau Perez DO [facility] [address] [facility] [address] [address] 04/02/2018 11:10:50 04/02/2018 11:45:39 Degeneration of cervical intervertebral disc 70037812 M50.[address] posada later [...] butran patch Type 2 oscar betes mellitus 38050373 E11.9 dropping sugars as a1c is still 7.2 on spec diet for diabetics and has lost wgt is finally doing better lab reviewed extensivel y with pat Essential hypertension 86831788 I10 stable now on meds [id number] Beau Peerz DO [facility] [address] [facility] [address],[place] [address] 07/25/2018 10:39:03 07/25/2018 11:42:55 Nausea and vomiting 55893032 R11.2 will treat with zofran Essential hypertension 97484024 I10 stable now on meds was elevated during her procedure Type 2 oscar betes mellitus 91204550 E11.9 will wait for labwork as pt has been too ill to get lab this past week [id number] Beau Perez DO [facility] [address] [facility],[place] [address] 08/17/2018 10:48:03 08/17/2018 11:56:29 Pre-surgery evaluation 616664211 Z01.818 Per the revised edition of the [...] without problem. Neuropathy due to diabetes mellitus 539917073 E11.40 some numbness in feet but good foot exam Stable angina 163138839 I20.8 currently symptom free of any angina type sx Type 2 oscar betes mellitus 01666562 E11.9 stable and without issue Levemir instructon s provided. Essential hypertension 88581141 I10 stable now on meds [id number] September ALYSSA Cuevas [facility] [address] [facility],[place] [address] 11/16/2018 08:56:22 11/16/2018 09:59:22 Atypical chest pain 979236678 R07.89 refusing work up AMA stating that [...] wants a recommenda tion for allergies Lightheadedness 06532419 8 R42 refusing work upAMAstati ng that she had work up in 2017 that was normal and thinks this is just allergies. just wants a recommenda tion for allergies Environmental allergy 42 2423485 T78.49XA recommend otc zyrtec and or flonase Benign par oxysmal positional vertigo 006502364 H81.13 [id number] Beau Perez [facility] [address] [facility] [address],[place] [address] 03/27/2019 13:52:17 03/27/2019 15:20:27 Type 2 diabetes mellitus 24170926 E11.9 stable and without issue Levemir isaelon s provided. 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 will be ordering tests [id number] Beau Perez DO [facility] [address] [facility] [address],[place] [address] 08/13/2019 14:06:58 08/13/2019 15:02:06 Essential hypertension 09120125 I10 stable now on meds Type 2 oscar betes mellitus 18239419 E11.9 not stable and she hasnt been checking a1c is needed and we will order now Stable angina 605054271 I20.8 currently symptom free of any angina type sx Depressive disorder 3548 9007 F32.9 [id number] Beau Perez [facility] [address] [facility] [address],[place] [address] 09/04/2019 09:09:37 09/04/2019 11:34:58 Essential hypertension 69257682 I10 stable now on meds bp at home has good she will check occ at home Neuropathy due to diabetes mellitus 435609798 E11.40 some numbness in feet but good foot exam Type 2 oscar betes mellitus 27128551 E11.9 not stable and she hasnt been checking a1c is needed and we will order now Stable angina 374526052 I20.8 currently symptom free of any angina type sx Depressive disorder 3548 9007 F32.9 will wean off the citalopram as she is doing great right now will cut in half for week and then stop if ok [id number] Beau Perez DO [facility] [address] [facility] [address],[place] [address] 11/27/2019 12:06:20 11/27/2019 12:31:27 Essential hypertension 11723379 I10 stable now on meds bp at home has good she will check occ at home Type 2 oscar betes mellitus 95143658 E11.9 not stable and she hasnt been checking a1c is needed and we will order now Stable angina 245009069 I20.8 currently symptom free of any angina type sx Osteoarthritis 801130085 M19.90 has known djd of LS spine and has radiculopa thy down the left leg this is her weak spot where the pain becomes unbearable [id number] Beau Perez [facility] [address] [facility],[place] [address] 06/12/2020 08:29:43 06/12/2020 13:59:04 Coronary arteriosclerosis 41373328 I25.10 has been asymptomat ic Hypercholesterolemia 136 12346 E78.00 will be needing to get this rechk in next lab Neuropathy due to diabetes mellitus 905235333 E11.40 persistant numbness in both feet has known foot deformitie s and will need to renew her diabetic shoes as her current pair are falling apart Type 2 oscar betes mellitus 06860398 E11.9 not stable and she hasnt been checking a1c is now elevated at 8.0 was 7.9 last time in august relates Osteoarthritis 639702247 M19.90 has known djd of LS spine and has radiculopa thy down the right leg this is her weak spot where the pain becomes unbearable Degenerati on of lumbar intervertebral disc 15701251 M51.36 given profound deteriorat ion and inoperable condition per the neurosurge on Dr Izquierdo Renewal of prescription 161909310 Z76.0 [id number] Beau Perez [facility] [address] [facility],[place] [address] 08/17/2020 11:39:31 08/17/2020 13:24:29 Type 2 diabetes mellitus 84243454 E11.9 not stable and she hasnt been [...] to take other DM pills Essential hypertension 13324108 I10 stable now on meds bp at home has good she will check occ at home Benign par oxysmal positional vertigo 417449649 H81.10 doing well except when sugars are out of control [id number] Beau Perez DO [facility] [address] [facility],[place] [address] 12/25/2020 09:07:53 12/25/2020 09:45:03 Type 2 diabetes mellitus 89607881 E11.[address] Oviedo [...] eval for DM foot exam Essential hypertension 89168072 I10 stable now on meds bp at home has good she will check occ at homehad further lab at endocrine and LFt etc were all WNL Stable angina 698179996 I20.8 currently symptom free of any angina type sxno cp no sob unless she is exerting herself [id number] Beau Perez DO [facility] [address] [facility],[place] [address] 05/24/2021 08:21:12 05/24/2021 12:10:34 Coronary arteriosclerosis 40226465 I25.10 has been asymptomat ic Essential hypertension 37988205 I10 stable now on meds bp at home has good she will check occ at homehad further lab at endocrine and LFt etc were all WNL Neuropathy due to diabetes mellitus 025626018 E11.40 persistant numbness in both feet has known foot deformitie s and will need to renew her diabetic shoes as her current pair are falling apart Type 2 oscar betes mellitus 35379071 E11.[address] Oviedo [...] exam Degenerati on of lumbar intervertebral disc 83080277 M51.36 will be seeing about going to [facility] dr crespo for pain management given profound deteriorat ion and inoperable condition per the neurosurge on Dr Izquierdo we willprovid e a month dose of the buprenorph ine [id number] Beau Perez [facility] [address] [facility], [place] [address] 06/18/2021 10:03:23 06/23/2021 15:26:39 Neuropathy due to diabetes mellitus 533508436 E11.40 persistant numbness in both feet has known foot deformitie s and will need to renew her diabetic shoes as her current pair are falling apart Stable angina 337119491 I20.8 currently symptom free of any angina type sxno cp no sob unless she is exerting herself Type 2 oscar betes mellitus 37971726 E11.[address] Oviedo [...] eval for DM foot exam Anxiety disorder 7874905 06 F41.9 [id number] Beau Perez [facility] [address] [facility],[place] [address] 09/29/2021 13:25:35 09/29/2021 13:57:58 Type 2 diabetes mellitus 14668778 E11.9 we will have her get a1c [...] eval for DM foot exam Essential hypertension 69450937 I10 stable now on meds bp at home has good she will check occ at homehad further lab at endocrine and LFt etc were all WNL Active or passive immunization 436461645 Z23 aware she is due for Tdap [id number] Beau Perez DO [facility] [address] [facility] [address],[place] [address] 03/01/2022 13:37:47 03/01/2022 16:21:33 Coronary arteriosclerosis 61500605 I25.10 has been asymptomat ic Essential hypertension 20093762 I10 stable now on meds bp at home has good she will check occ at homehad further lab at endocrine and LFt etc were all WNL Type 2 oscar betes mellitus 25842512 E11.9 we will have her get a1c [...] eval for DM foot exam Stable angina 363784392 I20.8 currently symptom free of any angina type sxno cp no sob unless she is exerting herself Neuropathy due to diabetes mellitus 254746892 E11.40 persistant numbness in both feet has known foot deformitie s and will need to renew her diabetic shoes as her current pair are falling apart [id number] Beau Perez [facility] [address] [facility],[place] [address] 06/03/2022 07:45:38 06/03/2022 10:52:16 Essential hypertension 41381561 I10 stable now on meds bp at home has good she will check occ at homehad further lab at endocrine and LFt etc were all WNL Type 2 oscar betes mellitus 19908839 E11.9 an a1c is 7 she was [...] eval for DM foot exam Coronary arteriosclerosis 69025532 I25.10 [place] [id number] Beau Millarddelmi [facility] [address] [facility],[place] [address] 08/31/2022 15:50:38 09/02/2022 14:46:33 Type 2 diabetes mellitus 12974011 E11.9 an a1c is 7.3 she was at 7,1 was 7.0last time in august using the levemir 58 u dailyhas had a full eval for DM foot exam Essential hypertension 99173997 I10 stable now on meds bp at home has good she will check occ at homehad further lab at endocrine and LFt etc were all WNL Coronary arteriosclerosis 30472530 I25.10 has been asymptomat ic 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 persistant numbness in both feet has known foot deformitie s and will need to renew her diabetic shoes as her current pair are falling apart Stable angina 385403166 I20.8 currently symptom free of any angina type sxno cp no sob unless she is exerting herself [id number] Beau Perez DO [facility] Internal Medicine [address] [facility] [address],[place] [facility] [place] [address] 02/15/2023 13:24:13 02/15/2023 14:13:44 Essential hypertension 30159064 I10 stable now on meds bp at home has good she will check occ at homehad further lab at endocrine and LFt etc were all WNL Hypercholesterolemia 136 27560 E78.00 will be needing to get this rechk in next lab 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 an a1c is 6.9 and doing 7.3 she was at 7,1 was 7.0last time in august using the levemir 58 u daily but in divided doses and we will have her go to once a day at bedtimehas had a full eval for DM foot exam [id number] Beau Perez DO [facility] [address] [facility] [address],[place] [address] 05/22/2023 13:24:26 05/22/2023 14:23:31 Coronary arteriosclerosis 58084549 I25.10 has been asymptomat ic Hypercholesterolemia 136 73383 E78.00 will be needing to get this rechk in next lab Type 2 oscar betes mellitus 43976799 E11.9 an a1c is 6.9 and doing 7.3 she was at 7,1 was 7.0last time in august using the levemir 58 u daily but in divided doses and we will have her go to once a day at bedtimeha had a full eval for DM foot exam Essential hypertension 60982930 I10 stable now on meds bp at home has good she will check occ at homehad further lab at endocrine and LFt etc were all WNL [id number] Beau Perez DO [facility] [address] [facility] [address],[place] [facility] [place] [address] 07/03/2023 10:19:11 07/03/2023 13:51:39 Obstructive sleep apnea syndrome 75207010 G47.33 needs to be using cpap told pt she can try nasal pillows Essential hypertension 35236309 I10 stable now on meds bp at home has good she will check occ at homehad further lab at endocrine and LFt etc were all WNL Hypercholesterolemia 136 54226 E78.00 will be needing to get this rechk in next lab Diabetic p eripheral neuropathy 410483023 E11.40 stable Angina pectoris 82041196 0 I20.89 stable Type 2 oscar betes mellitus 51843772 E11.9 having a great deal of trouble controllin g sugars goinh very high 300s and then bottoming out at 40's very symptomati c we need better monitoring as she is fingerstic erin up to 5 x per day Diarrhea 74264946 R19.7 will need to get c diff screen and follow close as she [facility] of [facility] as i do believe this is c diffmetron idazole is NOT a good choice for her given >65 and frail, will try fidaxo (but is over $1000 USD or vanco [id number] Beau Perez DO [facility] [address] [facility],[place] [address] 09/25/2023 15:17:07 09/25/2023 16:42:47 Obstructive sleep apnea syndrome 29546520 G47.33 needs to be using cpap told pt she can try nasal pillows Essential hypertension 16366036 I10 stable now on meds bp at home has good she will check occ at homehad further lab at endocrine and LFt etc were all WNL Hypercholesterolemia 136 67920 E78.00 will be needing to get this rechk in next lab Diabetic p eripheral neuropathy 336715636 E11.40 stable Angina pectoris 79424594 0 I20.89 stable Type 2 oscar betes mellitus 14244911 E11.9 having a great deal of trouble controllin g sugars goinh very high 300s and then bottoming out at 40's very symptomati c we need better monitoring as she is fingerstic erin up to 5 x per day Diarrhea 12917994 R19.7 will need to get c diff screen and follow close as she showed signs of dehydratio n [facility] sample tomorrow to [facility] as i do believe this is c diffmetron idazole is NOT a good choice for her given >65 and frail, will try fidaxo (but is over $1000 USD or vanco [id number] ALISON HANCOCK [facility] [address] [facility] [address],[place] [facility] [place] [place] [address] 10/23/2023 11:57:19 10/23/2023 13:35:35 Depression screening 216098907 Z13.31 negative Acute otitis media 27571 03 H66.92 start on amox for the next 7 days Edema of l ower extremity 042938209 R60.0 will set up with lab workmonito r weightsinc rease lasix to 40 mgset up with lab work [id number] Beau Perez DO [facility] [address] [facility],[place] [address] 02/21/2024 13:57:53 02/21/2024 14:34:07 Adult health examination 777202668 Z00.01 will need to loolk into why she is so fatigued and not feeling well she appears quite pale as well will need major lab work to start and will see her back Screening for cardiovascular system disease 942630869 Z13.6 already started on lipitor agian with coq 10 Screening for malignant neoplasm of colon 978326995 Z12.11 wait until better gi willl call Screening for osteoporosis 431177452 Z13.820 given order for test Edema of l ower extremity 877972467 R60.0 rusty put support hose back onwill stop the amlodipine increase furosemid on temporary basis to 40mg Essential hypertension 89060428 I10 stable now on meds bp at home has good she will check occ at homehad further lab at endocrine and LFt etc were all WNL Type 2 oscar betes mellitus 72296162 E11.9 having a great deal of trouble controllin g sugars goinh very high 300s and then bottoming out at 40's very symptomati c we need better monitoring as she is fingerstic erin up to 5 x per day [id number] Beau Perez DO [facility] [address] [facility] [address],[place] [address] 03/11/2024 11:05:54 03/11/2024 15:19:13 Essential hypertension 39068962 I10 stable now on meds bp at home has good she will check occ at homehad further lab at endocrine and LFt etc were all WNL Angina pectoris 34301123 0 I20.89 stable Coronary arteriosclerosis 74106773 I25.10 now symptomati c will start imdur and refer to cardiologi st she understand s that if pain not relieved with first dose she takes a second and call 911 daughter present Type 2 oscar nelson mellitus 75336262 E11.9 a1c is 10.3 but she had gotten 2 epidurals before and this always drives her sugars highwill rechk Tear of skin 758078452 T 14.8XXA local wound care applied [id number] Beau Perez DO [facility] [address],[place] [address] 05/20/2024 11:39:04 05/20/2024 13:47:46 Obstructive sleep apnea syndrome 88531835 G47.33 needs to be using cpap told pt she can try nasal pillows Type 2 oscar nelson mellitus 27911367 E11.9 a1c is 10.3 but she had [...] FOR LIFE (SECONDARY TO MEDICARE) Malu Martini [id number] Malu Y Vini 09/25/2023 1 [place] B-[place]: [employer] Malu Y Vini [id number] Malu Y Vini 10/23/2023 2 WPS - FOR LIFE (SECONDARY TO MEDICARE) Malufred Martini [id number] Malu Y Vini 10/23/2023 1 [place]IC[place] [employer] Malu Y Vini [id number] Malu Y Vini 02/21/2024 2 WPS - FOR LIFE (SECONDARY TO MEDICARE) Malufred Martini [id number] Malu Adams Vini 02/21/2024 1 [place]IC[place]: [employer] Malu Martini [id number] Malu Bryan Contrerasny 03/11/2024 2 WPS - FOR LIFE (SECONDARY TO MEDICARE) Malu Martini [id number] Malu Bryan Contrerasny 03/11/2024 1 [place]IC[place]: [employer] Malu Martini [id number] Malu Y Vini 05/20/2024 2 WPS - FOR LIFE (SECONDARY TO MEDICARE) Malu Martini [id number] Malu Y Vini 05/20/2024 1 [place]IC[place]: [facility] GOVERNMENT SERVICES Malu Martini [id number] Malu Martini Notes Date Note Type Note Provider Name a nd Address Organization Details Recorded Time 4 text/html here for rechk still having a lot of nerve painstates that she is not getting relief with topiramatehad good eye exam lately but having trouble with her reading etcno cp nossobbowels ok bladder okappetite is oksleep terrible 3-4 hrs then needs to go to her chair Beau Perez DO [address] [place], [address], [facility] 09/25/2023 15:51:38 4 text/html [...] for the ear infection ALISON HANCOCK [address] [place], [address], [facility] 10/23/2023 12:28:35 09/18/202 4 text/html Medicare Annual Wellness VisitReported bypatient.Diet [...] of legs now leaking sero fluid Beau Perez DO [address] [place] [address], [address], [facility] 02/21/2024 14:32:50 4 text/html here [...] wondering if this was helping Beau Perez, DO [address] [place], [address], [facility] 03/11/2024 12:07:07 4 text/html here for eval of uncontrolled dmadmits to diet non compliance and eating chocolate dailyalso forgetting to take her pillslast a1c is 10.4doesnt sleep in bed anymore bc of her neck painalso dm neuropathy not better with Beau Perez, DO [address] [place] [address], [address], [facility] 05/20/2024 12:38:03 OBGyn Episode No OBEpisode recorded.
--- OUTSIDE RECORDS SUMMARY | 2024-08-05 06:37 | XMS_ITS ---
Author Organization [facility] Address [address] [place] [address] Care Team Providers Care Ammonia Worker Name Role Phone Ana MONTOYA, Beau Primary Care Provider Irena Vanegas [phone] Encounters Encounter Location Date Provider Diagnosis [facility] [address] [address] 06/14/2024 Irena Tillman Plan Of Treatment No Information Progress Notes * Malu MORRISON YDOB:[birth year] (84 yo F)Acc No.[id number]:06/14/2024 Progress Note Patient:Malu VEGA Provider:?Irena Tillman DPM :1940???Age:84 Y???Sex:Female D ate:06/14/2024 Address:[address] [place] [address], [facility] [address], [facility] Pcp:Beau Perez MD Subjective: * Chief Complaints: [...] DPM Date:?0 06/14/2024 Generated for Kaleb foreman/Beata/eTransmitting on:?08/05/2024 06:37 AM EST
--- OUTSIDE RECORDS SUMMARY | 2024-08-05 06:37 | XMS_ITS | Encounter Summary ---
Author Organization [facility] Address [address] [address] Phone Care Team Providers Care Remote Sensing Program Manager Name Role Phone Unavailable Primary Care Provider Unavailabl e Encounter Details Date Type Department Care Team (Late st Contact Info) Description 08/01/2024 Orders Only [facility] [address] [phone] Sergey Novak MD [address] [phone] Social History Tobacco Use Types Packs/Day Years Used Date Smoking Tobacco: Never Assessed Comments Unknown Sex and Gender Information Value Date Recorded Sex Assigned at Not on file Legal Sex Female 5:05 PM EST Gender Identity Not on file Sexual Orientation Not on file documented as of this encounter Plan of Treatment Not on file documented as of this encounter Procedures Procedure Name Priority Date/Time Associated Diagnosis Comments CONFIRMATION TEST HCV Routine 08/01/2024 3:00 AM EST LIH () Routine 08/01/2024 3:00 AM EST KT/V NATURAL LOG, URR () Routine 08/01/2024 3:00 AM EST CALCIUM PHOSPHORUS PRODUCT, ADJUSTED () Routine 08/01/2024 3:00 AM EST HEPATITIS C ABS W/REFLEX RNA DETECTR Routine 08/01/2024 3:00 AM EST HEPATITIS B SURFACE ANTIGEN W/REFL CONFIRM Routine 08/01/2024 3:00 AM EST TRANSFERRIN SATURATION Routine 3:00 AM EST HEPATITIS B CORE AB TOTAL Routine 08/01/2024 3:00 AM EST VITAMIN D 25 HYDROXY Routine 08/01/2024 3:00 AM EST HEPATITIS B SURFACE ANTIBODY QUANT Routine 08/01/2024 3:00 AM EST CBC AND DIFFERENTIAL Routine 08/01/2024 3:00 AM EST URIC ACID Routine 08/01/2024 3:00 AM EST ALT Routine 08/01/2024 3:00 AM EST AST Routine 08/01/2024 3:00 AM EST PROTEIN, TOTAL, SERUM Routine 08/01/2024 3:00 AM EST ALKALINE PHOSPHATASE Routine 08/01/2024 3:00 AM EST PTH, INTACT Routine 08/01/2024 3:00 AM EST MAGNESIUM Routine 08/01/2024 3:00 AM EST LACTATE DEHYDROGENASE Routine 08/01/2024 3:00 AM EST HEMOGLOBIN A1C Routine 08/01/2024 3:00 AM EST GLUCOSE, RANDOM Routine 08/01/2024 3:00 AM EST FERRITIN Routine 08/01/2024 3:00 AM EST CREATININE, SERUM Routine 08/01/2024 3:0 0 AM EST BILIRUBIN, TOTAL Routine 08/01/2024 3:00 AM EST LIPID PANEL Routine 08/01/2024 3:00 AM EST ELECTROLYTE PANEL Routine 08/01/2024 3:0 0 AM EST documented in this encounter Results * Hepatitis B Core Antibody, Total (08/01/2024 3:00 AM EST) HBc Total Ab, S Negative Negative [facility] 08/01/2024 3:00 AM EST 08/02/2024 11:57 AM EST us Sergey Novak MD LAB BLOOD ORDERABLES Final Result Performing Organization Address [facility] Co de Phone Number [facility] [address] [place] [address] * Confirmation Test HCV (08/01/2024 3:00 AM EST) Hep C Ab Confirmation Not needed [facility] 08/01/2024 3:00 AM EST 08/02/2024 11:56 AM EST us Sergey Novak MD LAB BLOOD ORDERABLES Final Result Performing Organization Address [facility] Co de Phone Number [facility] [address] [place] [address] * HEPATITIS C ABS W/REFLEX RNA DETECTR (08/01/2024 3:00 AM EST) Hep C Virus Ab Non-Reacti ve Non-Reacti ve [facility] 08/01/2024 3:00 AM EST 08/02/2024 11:57 AM EST us Sergey Novak MD LAB HISTORICA [id number] RESULTS Final Result Performing Organization Address [facility] Co de Phone Number [facility] [address] [place] [address] * (ABNORMAL) TSAT (08/01/2024 3:00 AM EST) Iron 46(L) 50 - 170 ug/dL [facility] Transferrin 268 250 - 380 mg/dL [facility] TIBC 375 211 - 406 ug/dL [facility] Iron Saturation (TSat) 12(L) 22 - 52 % [facility] 08/01/2024 3:00 AM EST 08/02/2024 11:57 AM EST us Sergey Novak MD LAB BLOOD ORDERABLES Final Result Performing Organization Address [facility] Co de Phone Number [facility] [address] [place] [address] * Uric Acid (08/01/2024 3:00 AM EST) Uric Acid 4.6 2.3 - 6.6 mg/dL [facility] 08/01/2024 3:00 AM EST 08/02/2024 11:57 AM EST us Sergey Novak MD LAB BLOOD ORDERABLES Final Result Performing Organization Address [facility] de Phone Number [facility] [address] [place] [address] * Protein, total (08/01/2024 3:00 AM EST) Total Protein 6.6 6.4 - 8.9 g/dL [facility] 08/01/2024 3:00 AM EST 08/02/2024 11:57 AM EST us Sergey Novak MD LAB BLOOD ORDERABLES Final Result Performing Organization Address [facility] Co de Phone Number [facility] [address] [place] [address] * (ABNORMAL) Lipid panel (08/01/2024 3:00 AM [...] ORDERABLES Final Result [facility] [address] [place] [address] * (ABNORMAL) Electrolyte panel (08/01/2024 3:00 AM [...] BLOOD ORDERABLES Final Result Performing Organization Address [facility] de Phone Number [facility] [address] [place] [address] * Magnesium (08/01/2024 3:00 AM EST) Magnesium 2.6 1.9 - 2.7 mg/dL [facility] 08/01/2024 3:00 AM EST 08/02/2024 11:57 AM EST us Sergye Novak MD LAB BLOOD ORDERABLES Final Result Performing Organization Address [facility] de Phone Number [facility] [address] [place] [address] * Lactate dehydrogenase (08/01/2024 3:00 AM EST) LDH 243 120 - 246 U/L [facility] 08/01/2024 3:00 AM EST 08/02/2024 11:57 AM EST us Sergey Novak MD LAB BLOOD ORDERABLES Final Result Performing Organization Address [facility] de Phone Number [facility] [address] [place] [address] * LIH (08/01/2024 3:00 AM EST) Lipemia Normal Normal [facility] Icterus Normal Normal [facility] Hemolysis Normal Normal [facility] 08/01/2024 3:00 AM EST 08/02/2024 11:57 AM EST us Sergey Novak MD LAB HISTORICA [id number] RESULTS Final Result Performing Organization Address [facility]/ZIP Co de Phone Number [facility] [address] [place] [address] * (ABNORMAL) Glucose, random (08/01/2024 3:00 AM EST) Glucose 144(H) 74 - 109 mg/dL [facility] 08/01/2024 3:00 AM EST 08/02/2024 11:57 AM EST Sergey Novak MD LAB BLOOD ORDERABLES Final Result Performing Organization Address [facility] de Phone Number [facility] [address] [place] [address] * (ABNORMAL) Creatinine, serum (08/01/2024 3:00 AM EST) Creatinine 3.75(H) 0.55 - 1.02 mg/dL [facility] 08/01/2024 3:00 AM EST 08/02/2024 11:57 AM EST Sergey Novak MD LAB BLOOD ORDERABLES Final Result Performing Organization Address [facility] de Phone Number [facility] [address] [place] [address] * AST (08/01/2024 3:00 AM EST) AST (SGOT) 27 <34 U/L [facility] 08/01/2024 3:00 AM EST 08/02/2024 11:57 AM EST Sergey Novak MD LAB BLOOD ORDERABLES Final Result Performing Organization Address [facility] Co de Phone Number [facility] [address] [place] [address] * Alkaline phosphatase (08/01/2024 3:00 AM EST) Alkaline Phosphatase 75 46 - 116 U/L [facility] 08/01/2024 3:00 AM EST 08/02/2024 11:57 AM EST us Sergey Novak MD LAB BLOOD ORDERABLES Final Result Performing Organization Address [facility] Co de Phone Number [facility] [address] [place] [address] * Bilirubin, total (08/01/2024 3:00 AM EST) Total Bilirubin 0.4 0.3 - 1.2 mg/dL [facility] 08/01/2024 3:00 AM EST 08/02/2024 11:57 AM EST us Sergey Novak MD LAB BLOOD ORDERABLES Final Result Performing Organization Address [facility] Phone Number [facility] [address] [place] [address] * (ABNORMAL) ALT (08/01/2024 3:00 AM EST) ALT (SGPT) 7(L) 10 - 49 U/L [facility] 08/01/2024 3:00 AM EST 08/02/2024 11:57 AM EST us Sergey Novak MD LAB BLOOD ORDERABLES Final Result Performing Organization Address [facility] Phone Number [facility] [address] [place] [address] * Calcium Phosphorus Product, Adjusted (08/01/2024 3:00 [...] EST us Sergey Novak MD LAB HISTORICA [id number] RESULTS Final Result Performing Organization Address [facility] de Phone Number [facility] [address] [place] [address] * Hepatitis B Surface Ag w/Reflex Confirmation (08/01/2024 3:00 AM EST) Pathologist [facility] Hep B Surface Antigen Negative Negative [facility] 08/01/2024 3:00 AM EST 08/02/2024 11:57 AM EST Sergey Novak MD LAB BLOOD ORDERABLES Final Result Performing Organization Address [facility] de Phone Number [facility] [address] [place] [address] * Vitamin D 25 Hydroxy (08/01/2024 3:00 AM EST) Pathologist [facility] Vitamin D, 25-Hydroxy 21 30 - 100 ng/mL [facility] Comment: Status ? Adult ?? Pediatric Deficient: ? <20 ? <15 Insufficient: ??20-29 ?? 15-19 Sufficient: ?30-100 ??20-100 08/01/2024 3:00 AM EST 08/02/2024 11:57 AM EST Sergey Novak MD LAB BLOOD ORDERABLES Final Result Performing Organization Address [facility] de Phone Number [facility] [address] [place] [address] * (ABNORMAL) Ferritin (08/01/2024 3:00 AM EST) Pathologist [facility] Ferritin 696(H) 10 - 291 ng/mL [facility] 08/01/2024 3:00 AM EST 08/02/2024 11:57 AM EST Sergey Novak MD LAB BLOOD ORDERABLES Final Result Performing Organization Address [facility] de Phone Number [facility] [address] [place] [address] * (ABNORMAL) Hepatitis B Surface Antibody (08/01/2024 3:00 AM EST) Hep B Surface Antibody <4(A) mIU/mL [facility] Comment: Interpretation: <10: No Immunity >=10: Probable Immunity 08/01/2024 3:00 AM EST 08/02/2024 11:57 AM EST Sergey Novak MD LAB BLOOD ORDERABLES Final Result Performing Organization Address [facility] de Phone Number [facility] [address] [place] [address] * PTH, Intact (08/01/2024 3:00 AM EST) PTH, Intact 188 160 - 721 pg/mL [facility] Comment: Suggested (KDIGO) ESRD maintenance range is two to nine times the upper normal limit (80.1 pg/mL) for the laboratory. 08/01/2024 3:00 AM EST 08/02/2024 11:57 AM EST Sergey Novak MD LAB BLOOD ORDERABLES Final Result Performing Organization Address [facility] de Phone Number [facility] [address] [place] [address] * (ABNORMAL) Hemoglobin A1c (08/01/2024 3:00 AM [...] BLOOD ORDERABLES Final Result Performing Organization Address [facility] de Phone Number [facility] [address] [place] [address] * (ABNORMAL) Kt/V Natural Log, URR (08/01/2024 [...] EST us Sergey Novak MD LAB HISTORICA [id number] RESULTS Final Result Performing Organization Address [facility] de Phone Number [facility] [address] [place] [address] * (ABNORMAL) CBC and Differential (08/01/2024 3:00 AM EST) DIFFERENTIAL MANUAL, 2 Not Indicated [facility] [place] [...] ORDERABLES Final Result [facility] [address] [place] [address] documented in this encounter Visit Diagnoses Not on filedocumented in this encounter
--- OUTSIDE RECORDS SUMMARY | 2024-08-05 06:37 | XMS_ITS | Encounter Summary ---
Author Organization [facility]. Address [address] [place] [phone] Phone Care Team Providers Care Log Skidder Name Role Phone Unavailable Primary Care Provider Unavailabl e Encounter Details Date Type Department Care Team (Late st Contact Info) Description 08/01/2024 Treatment [facility] [address] [phone] Emerson Novak MD [address] [phone] Social History Tobacco Use Types Packs/Day Years Used Date Smoking Tobacco: Never Assessed Comments Unknown Sex and Gender Information Value Date Recorded Sex Assigned at Not on file Legal Sex Female 5:05 PM EST Gender Identity Not on file Sexual Orientation Not on file documented as of this encounter Miscellaneous Notes * Dialysis Note - Emerson Novak MD - 08/01/2024 12:00 AM EST Patient: Malu Martini : 1940 Note Type: Dialysis Rounds-MARNI Service Date: 08/01/2024 This patient was personally seen during dialysis for the management of acute kidney injury requiring renal replacement therapy. Attending Brassiere Cup Mold Cutter: EMERSON NOVAK MD Dialysis Location: [facility] Schedule: Shift: 1 OVERVIEW Patient is stable. HOME MEDICATIONS Medications reviewed. Current [facility] Epic Allergies Allergen: Not on File BP AND FLUID ASSESSMENT Acceptable blood pressure. Fluid status acceptable. ADEQUACY ASSESSMENT Target met. ACCESS ASSESSMENT Vascular access examined. ANEMIA ASSESSMENT Anemia targets met. BMM ASSESSMENT PTH within target. Phosphorus controlled. Calcium controlled. Bone and mineral metabolism parameters reviewed. PHYSICAL EXAM Exam performed. Vital Signs Reviewed. Lungs - Clear. CV - Blood pressure noted. No edema. EXT - No ulcers. Signed by: EMERSON NOVAK MD on 08/01/2024 at 08:30:06 AM documented in this encounter Plan of Treatment Not on file documented as of this encounter Visit Diagnoses Not on filedocumented in this encounter
--- OUTSIDE RECORDS SUMMARY | 2024-08-05 06:37 | XMS_ITS | Patient Health Record ---
Author Organization [facility] Address [address] [place] [address] Care Team Providers Care Client Professional Name Role Phone Beau Perez MD Primary Care Provider UnavailIrena Boateng Unavailable [phone] Juan Phelps Unavailable [phone] Allergies Allergen (clinical drug ingredient) Drug/Non Drug Allergy documented on EMR Reaction Allergy Type Onset Date Status tolmetin Tolectin (uncoded) Unknown Allergy A ctive diclofenac Diclofenac Unknown Drug Allergy Activ e Reason For Referral No Information Medications Medication SIG (Take, Route, Frequency, Duration) Notes Start Date End Date Status Papaya Enzyme 45 mg Not-Ta erin Magnesium 500 MG 1 tablet with a meal Orally Once a day for 30 day(s) Active Allopurinol 100 MG 1 tablet Orally Once a day for 30 day(s) Not-Taking Losartan Potassium 100 MG 1 tablet Orall y Once a day for 30 day(s) Active NIFEdipine ER 30 MG 1 tablet on an empty stomach Orally Once a day for 30 day(s) Not-Taking Levemir FlexPen 40 units Acti ve Labetalol HCl 100 MG 1 tablet Orally Twice a day for 30 day(s) Not-Taking Cephalexin 500 MG 1 capsule Orally twice a day for 5 days 02/09/2022 Not-Taking Vitamin C 400 mg Active Repatha Active Milk Thistle 200 MG as directed Orally Active Meclizine HCl 25 MG 1 tablet as needed Orally Once a day prn Active Atorvastatin Calcium 40 MG 1 tablet Orally Once a day for 30 day(s) Not-Taking Furosemide Active Zinc 10 mg Active [place] 2500 mg Activ e Vitamin D-3 25 MCG (1000 UT) 1 capsule Orally Once a day for 30 day(s) Active Berberine Complex Ac tive Carvedilol 18.75 mg Active amLODIPine Besylate 10 MG 1 tablet Orall y Once a day for 30 day(s) Not-Taking Spironolactone 25 MG 1 tablet Orally for 30 day(s) Active Pregabalin 50 MG Oral for 30 Days Active Ciclopirox Olamine 0.77 % 1 application to affected area Externally Twice a day to effected areas on feet for 30 days 03/21/2023 Active Buprenorphine 20 MCG/HR 1 patch to skin Transdermal Active CoQ10 100 MG as directed Orally Active Copper 2 mg Not-Taking Curcumin 95 500 MG as directed Orally Tumeric Complex Active hydroCHLOROthiazide 5 mg Not-Taking B-12 500 MCG 1 tablet Orally Once a day for 30 day(s) Active Nitro-Bid Not-Taking Aspirin 81 MG 1 tablet Orally Once a day for 30 day(s) Active Topiramate 25 MG 1 tablet Orally Once a day for 30 day(s) Not-Taking Ginkgo Biloba 120 MG as directed Orally Active Furosemide 20 MG 1 tablet Orally Once a day for 30 day(s) Active Elderberry 1000 mg Active Papain-Urea 6 mg Not-Taki ng Cinnamon 500 MG as directed Orally Active Hydrocodone Bitartrate 325 mg Not-Taking Immunizations Vaccine Route Administration Date Status Comme nts COVID-19 Moderna Vaccine Unknown 05/31/2021 Administered 1st 08/24/20 2nd 09/21/20 Influenza Unknown 02/03/2021 Administered Social History Tobacco Use: Social History Observation Description Date Details (start date - stop date) Former Smoker NA - 06/05/1990 Tobacco Use/Smoking Question Answer Notes Are you a: former smoker When did you stop smoking? 06/05/1990 Additional Findings: Tobacco Non-User Ex-cigaret te smoker Alcohol Screen Question Answer Notes Did you have a drink contain ing alcohol in the past year? Yes How often did you have a dri nk containing alcohol in the past year? Monthly or less (1 point) Points 1 Interpretation Negative Tobacco use other than smoking: Question Answer Notes Are you an other tobacco user? 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, bilateral legs (I70.203) Active confirmed Problem Non-pressure chronic ulcer of other part of left foot limited to breakdown of skin (L97.521) Active confirmed Problem Non-pressure chronic ulcer of other part of right foot limited to breakdown of skin (L97.511) Active confirmed Problem Polyneuropathy due to type 2 diabetes mellitus (822872547) Type 2 diabetes mellitus with diabetic polyneuropathy (E11.42) Active confirmed Problem Polyneuropathy due to diabetes mellitus type I (066067072) Type 1 diabetes mellitus with diabetic polyneuropathy (E10.42) Active confirmed Vital Signs Height 5 ft 1.5 in in 03/19/2024 Weight 146 lbs 03/19/2024 BMI 27.14 kg/m2 03/19/2024 Encounters Encounter Location Date Provider Diagnosis [address] [address] 09/19/2023 Juan Phelps Type 1 diabetes mellitus with diabetic polyneuropathy E10.42 ; Pain in right toe(s) M79.674 ; Tinea unguium B35.1 ; Pain in left toe(s) M79.675 ; Ingrowing nail L60.0 ; Unspecified atherosclerosis of lower [place] arteries of extremities, bilateral legs I70.203 ; Tinea pedis B35.3 and Xerosis cutis L85.[address] [address] 01/02/2024 Juan Phelps Type 1 diabetes mellitus with diabetic polyneuropathy E10.42 ; Pain in right toe(s) M79.674 ; Tinea unguium B35.1 ; Pain in left toe(s) M79.675 ; Ingrowing nail L60.0 ; Unspecified atherosclerosis of lower [place] arteries of extremities, bilateral legs I70.203 ; Tinea pedis B35.3 and Xerosis cutis L85.[address] [address] 03/19/2024 Juan Phelps Type 1 diabetes mellitus with diabetic polyneuropathy E10.42 ; Pain in right toe(s) M79.674 ; Tinea unguium B35.1 ; Pain in left toe(s) M79.675 ; Ingrowing nail L60.0 ; Unspecified atherosclerosis of lower [place] arteries of extremities, bilateral legs I70.203 ; Tinea pedis B35.3 and Xerosis cutis L85.3 [facility] [address] [place] [address] 05/21/2024 Irena Tillman [facility] [address] [phone] 07/08/2024 Irena Tillman Assessments Encounter Date Diagnosis (ICD Code) Assessment Notes Treatment Notes Treatment Clinical Notes Section Notes 09/19/2023 Type 1 diabetes mellitus with diabetic polyneuropathy (ICD-10 - E10.42) 01/02/2024 Type 1 diabetes mellitus with diabetic polyneuropathy (ICD-10 - E10.42) 03/19/2024 Type 1 diabetes mellitus with diabetic polyneuropathy (ICD-10 - E10.42) 03/19/2024 Pain in right toe(s) (ICD-10 - M79.674) 09/19/2023 Pain in right toe(s) (ICD-10 - M79.674) 01/02/2024 Pain in right toe(s) (ICD-10 - M79.674) 09/19/2023 Pain in left toe(s) (ICD-10 - M79.675) 03/19/2024 Tinea unguium (ICD-10 - B35.1) 01/02/2024 Tinea unguium (ICD-10 - B35.1) 09/19/2023 Tinea unguium (ICD-10 - B35.1) 09/19/2023 Ingrowing nail (ICD-10 - L60.0) 01/02/2024 Pain in left toe(s) (ICD-10 - M79.675) 03/19/2024 Pain in left toe(s) (ICD-10 - M79.675) 09/19/2023 Unspecified atherosclerosis of lower [place] arteries of extremities, bilateral legs (ICD-10 - I70.203) 03/19/2024 Ingrowing nail (ICD-10 - L60.0) 01/02/2024 Ingrowing nail (ICD-10 - L60.0) 09/19/2023 Tinea pedis (ICD-10 - B35.3) 01/02/2024 Unspecified atherosclerosis of lower [place] arteries of extremities, bilateral legs (ICD-10 - I70.203) 03/19/2024 Unspecified atherosclerosis of lower [place] arteries of extremities, bilateral legs (ICD-10 - I70.203) 03/19/2024 Tinea pedis (ICD-10 - B35.3) 01/02/2024 Tinea pedis (ICD-10 - B35.3) 09/19/2023 Xerosis cutis (ICD-10 - L85.3) 01/02/2024 Xerosis cutis (ICD-10 - L85.3) 03/19/2024 Xerosis cutis (ICD-10 - L85.3) Plan Of Treatment Pending Test Test Name Order Date [id number] SKIN LESIONS, 2 TO 4 03/10/20 21 [id number] SKIN LESIONS, 2 TO 4 06/07/19 22 Insurance Providers Payer Name Payer Address Payer Phone Subscriber Number Group Number Insured Name Patient Relationship to Insured Coverage Start Date Coverage End Date Medicare National [employer] [address] [place] [address] [id number] Malu Martini Self - patient is the insured [employer] [address] [place] [id number] Cj Martini Spouse - patient is the spouse of the insured Medical (General) History Medical History History ICD Code Angina Arthritis Back,Hip,and Knee pain Cancer Gout High blood pressure Numbness Transfusions Vertigo Hypoglycemia Corneal erosion type II diabetes Surgical History Surgery Date(Month/Year) back surgery 03/2010 Hand Surgery 2006 hysterectomy appendectomy gall bladder disc surgery arthroscopic knee surgery, right 018 cataract surgery, SCS removal 01/2019 Hospitalization History Reason Date(Month/Year) [facility]- fell outside 12/2023 [facility] fell, 2 days later readmitted was f ound incoherent 05/2023 [facility]- neck pain, shot of toradol 03/2022 [facility]- High BP stay few hours 01/2021 [facility] - neck pain 04/2018 [facility] - high blood pressure a nd chest pains, 2 nights 02/07/2017
--- OUTSIDE RECORDS SUMMARY | 2024-08-05 06:38 | XMS_ITS ---
Author Name [facility] Organization Unknown History of Medication Use Medication Directions Dispensed Refills Start Date End Date Stat Unifine Pentips Plus 32 gauge x 5/32 needle USE TWICE PER DAY 11/22/2022 active spironolactone 25 mg tablet TAKE ONE TABLET BY MOUTH EVERY DAY active nitroglycerin 0.4 mg sublingual tablet active Marcaine (PF) 0.5 % (5 mg/mL) injection solution active rosuvastatin 40 mg tablet TAKE ONE TABLET BY MOUTH EVERY DAY 11/22/2022 completed Levemir FlexPen 100 unit/mL (3 mL) solution subcutaneous insulin pen INJECT 58 UNITS UNDER THE SKIN ONCE DAILY active Kenalog 40 mg/mL suspension for injection active carvedilol 12.5 mg tablet TAKE ONE AND ONE-HALF TABLETS BY MOUTH TWICE A DAY active topiramate 25 mg tablet TAKE ONE TABLET BY MOUTH THREE TIMES A DAY active Allergies Allergen Reaction Severity Comment Documented Date Source Statu s DICLOFENAC [facility] TOLECTIN [facility] Problems Problem Status Onset Date Problem Type Date of Resoluti on Source Osteoarthritis of left hip joint active 2022-11-28 ProblemAct [facility] Pain of left hip joint active 2023-01-13 ProblemAct [facility] Tendinitis of hip active 2023-03-10 ProblemAct [facility] Pain of left knee joint active 2023-02-02 ProblemAct [facility] Osteoarthritis of left knee joint active 2022-11-04 ProblemAct [facility]
--- OUTSIDE RECORDS SUMMARY | 2024-08-05 06:38 | XMS_ITS ---
Author Organization [facility] Address [address] [place] [address] Care Team Providers Care Dowel Sticker Operator Name Role Phone Ana MONTOYA, Beau Primary Care Provider Irena Vanegas [phone] Encounters Encounter Location Date Provider Diagnosis [facility] [address] [id number] 07/09/2024 Irena Tillman Plan Of Treatment No Information Progress Notes * Malu MORRISON YDOB:[birth year] (84 yo F)Acc No.[id number]:07/09/2024 Progress Note Patient:Malu VEGA Provider:?Irena Tillman DPM :1940???Age:84 Y???Sex:Female D ate:07/09/2024 Address:[address] [place] [address], [facility] [address], [facility] Pcp:Beau Perez MD Subjective: * Chief Complaints: [...] DPM Date:?0 07/09/2024 Generated for Kaleb foreman/Beata/eTransmitting on:?08/05/2024 06:37 AM EST
[2024-08-05 06:45] LABS: Basophils Percent Auto 0.4 % (0-2); Eosinophils Absolute Auto 0.3 X10*3/uL (0.0-0.4); Eosinophils Percent Auto 2.4 % (0-4); Hematocrit 24.5 % (37.0-47.0); Hemoglobin 7.8 g/dl (12.0-16.0); Imm Gran Abs Auto 0.06 X10*3/uL (0.00-0.03); Imm Gran Pct Auto 0.6 % (0.0-0.4); Lymphocytes Absolute Auto 3.1 X10*3/uL (1.2-4.9); Lymphocytes Percent Auto 28.6 % (20-40); Mean Corpuscular HGB Conc 31.8 g/dl (31.0-35.0); Mean Corpuscular Hemoglobin 30.4 pg (27.0-33.0); Mean Corpuscular Volume 95.3 fL (80.0-98.0); Monocytes Absolute Auto 0.9 X10*3/uL (0.1-1.2); Monocytes Percent Auto 8.5 % (2-11); Neutrophils Absolute Auto 6.4 x10*3/uL (2.0-8.3); Neutrophils Percent Auto 59.5 % (45-73); Platelet Count 230 X10*3/uL (160-400); Red Blood Count 2.57 X10*6/uL (4.20-5.50); Red Cell Distribution Width 16.2 % (11.0-16.0); White Blood Count 10.8 X10*3/uL (4.8-10.8)
[2024-08-05 07:40] LABS: Anion Gap 18 (12-20); Blood Urea Nitrogen 35 mg/dL (9-16); Calcium 8.3 mg/dL (8.4-10.2); Carbon Dioxide 22 mmol/L (22-29); Chloride 98 mmol/L (96-108); Glucose Random 69 mg/dL (60-115); Potassium 4.4 mmol/L (3.3-5.1); Sodium 134 mmol/L (135-145)
[2024-08-05 08:07] LABS: Estimated Glomerular Filt Rate 11
== END 2024-08-05 06:22 | disposition home or self-care (01) ==
LOC: HO.MMNH1L 06:21
PROVIDERS: Visit Provider Nurse Practitioner
DX: I49.01 Ventricular fibrillation (principal)
CPT/HCPCS: 36415; 80048; 85025